=== PATIENT | male | born 1950 | race Caucasian/White ===

== ENCOUNTER 2020-10-11 10:44 | Inpatient (IN) | payer MEDICARE ==
[2020-10-11] MEDS ORDERED: ASPIRIN 81 MG PO STA (11:16)
[2020-10-11 11:31] LABS: Basophils # (A) 0.1 k/uL (0-0.2); Basophils % (A) 1 %; Eosinophils # (A) 0.1 k/uL (0-0.7); Eosinophils % (A) 1 %; HCT 48.4 % (39.0-53.0); HGB 16.2 gm/dL (13.0-17.5); Lymphocytes # (A) 1.9 k/uL (1.0-4.8); Lymphocytes % (A) 11 %; MCH 27.2 pg (25.0-35.0); MCHC 33.5 g/dL (31.0-37.0); Mean Platelet Volume 7.7; Monocytes # (A) 0.8 k/uL (0-1.0); Monocytes % (A) 5 %; Neutrophils # (A) 13.4 k/uL (1.3-7.7); Neutrophils % (A) 81 %; Platelet Count 289 k/uL (150-450); RBC 5.97 m/uL (4.30-5.90); RDW 13.2 % (11.5-15.5); WBC 16.5 k/uL (3.8-10.6)
--- NOTE | 2020-10-11 11:44 | XR ---
EXAMINATION TYPE: XR chest 2V DATE OF EXAM: 10/11/2020 COMPARISON: None INDICATION: Chest pain TECHNIQUE: Frontal and lateral views of the chest are obtained. FINDINGS: The heart size is normal. The pulmonary vasculature is normal. The lungs are clear. IMPRESSION: 1. No acute pulmonary process.
[2020-10-11 11:46] LABS: ALT 28 U/L (4-49); AST 68 U/L (17-59); African American GFR (CKD) >90 (>60 ml/min/1.73 sqM); Albumin 4.5 g/dL (3.5-5.0); Alkaline Phosphatase 84 U/L (38-126); Anion Gap 10 mmol/L; Blood Urea Nitrogen 15 mg/dL (9-20); Calcium 9.8 mg/dL (8.4-10.2); Carbon Dioxide 24 mmol/L (22-30); Chloride 104 mmol/L (98-107); Glucose 266 mg/dL (74-99); Magnesium 1.8 mg/dL (1.6-2.3); Non-African American GFR(CKD) 83 (>60 ml/min/1.73 sqM); Potassium 4.2 mmol/L (3.5-5.1); Sodium 138 mmol/L (137-145); Total Bilirubin 1.1 mg/dL (0.2-1.3); Total Protein 7.4 g/dL (6.3-8.2)
[2020-10-11 11:55] LABS: INR 0.9 (<1.2); Partial Thromboplastin Time 23.4 sec (22.0-30.0); Prothrombin Time 9.9 sec (9.0-12.0)
--- NOTE | 2020-10-11 12:03 | ED ---
Chest Pain HPI <Duane Schwartz - Last Filed: 10/11/20 12:54> - General Source: patient Mode of arrival: wheelchair Limitations: no limitations <Radha Cage - Last Filed: 10/11/20 13:44> - General Chief Complaint: Chest Pain Stated Complaint: chest pain Time Seen by Provider: 10/11/20 10:54 - History of Present Illness Initial Comments: Patient is 70-year-old male presenting to the emergency Department with complaints of chest pain. Patient states he's been having issues with upper bilateral chest pain over the summer that would get worse when he was mowing his lawn or wanted to go faster. Patient states over the past few weeks since it's been cold outside, he has noticed that if he is walking outside he feels like his upper chest gets tight as well as this throat. Patient states starting around 5 AM this morning he has been having chest pressure. He states right now, it is very minimal. He denies any shortness of breath. He states he does not follow with a primary care doctor. He did have a stress test when he was in his 30s secondary to having arrhythmias, it was normal. Patient has not had a recent stress test. He denies any recent fever or chills, no cough or congestion. Does admit to mild nausea, no vomiting. The only medicine he takes is for "eye pressure." He has no further complaints at this time. His vital signs upon arrival are normal. (Radha Cage) - Related Data Home Medications Medication Instructions Recorded Confirmed Latanoprost/Pf [Latanoprost 0.005% 1 drop BOTH EYES HS 10/11/20 10/11/20 Eye Drop] Allergies Allergy/AdvReac Type Severity Reaction Status Date / Time Sulfa (Sulfonamide Allergy Unknown Verified 10/11/20 13:14 Antibiotics) Review of Systems ROS Other: All systems not noted in ROS Statement are negative. <Duane Schwartz - Last Filed: 10/11/20 12:54> ROS Other: All systems not noted in ROS Statement are negative. <Radha Cage - Last Filed: 10/11/20 13:44> ROS Statement: Those systems with pertinent positive or pertinent negative responses have been documented in the HPI. EKG Findings - EKG Comments: EKG Findings:: Normal sinus rhythm, nonspecific ST and T wave abnormalities specifically and V2 V3 and V5. No priors to compare to. Ventricular rate 75, MI 136, QT 372. This was reviewed by Dr. Schwartz. <Radha Cage - Last Filed: 10/11/20 13:44> Past Medical History Additional Past Medical History / Comment(s): "eye pressure" Additional Past Surgical History / Comment(s): Detached retina x 2 Past Psychological History: No Psychological Hx Reported Smoking Status: Former smoker Past Alcohol Use History: None Reported Past Drug Use History: None Reported <Radha Cage - Last Filed: 10/11/20 13:44> General Exam Limitations: no limitations <Radha Cage - Last Filed: 10/11/20 13:44> - General Exam Comments Initial Comments: GENERAL: Patient is well-developed and well-nourished. Patient is nontoxic and in no acute distress. HEAD: Atraumatic, normocephalic. EYES: Pupils equal round and reactive to light, extraocular movements intact, sclera anicteric, conjunctiva are normal. Eyelids were unremarkable. ENT: TMs normal, nares patent, oropharynx clear without exudates. Moist mucous membranes. NECK: Normal range of motion, supple without lymphadenopathy or JVD. LUNGS: Unlabored respirations. Breath sounds clear to auscultation bilaterally and equal. No wheezes rales or rhonchi. HEART: Regular rate and rhythm without murmurs, rubs or gallops. ABDOMEN: Soft, nontender, normoactive bowel sounds. No guarding, no rebound. No masses appreciated. : Deferred MUSCULOSKELETAL: Normal extremities with adequate strength and normal range of motion, no pitting or edema. No clubbing or cyanosis. NEUROLOGICAL: Patient is alert and oriented x 3. Motor and sensory are also intact. Cranial nerves II through XII grossly intact. Symmetrical smile. Normal speech, normal gait. PSYCH: Normal mood, normal affect. SKIN: Warm, Dry, normal turgor, no rashes or lesions noted. (Radha Cage) Course <Duane Schwartz - Last Filed: 10/11/20 12:54> Vital Signs 10/11/20 10/11/20 10/11/20 10:45 12:19 12:29 Temperature 98.6 F Pulse Rate 100 73 Respiratory 18 18 16 Rate Blood Pressure 159/89 142/75 O2 Sat by Pulse 97 93 L Oximetry 10/11/20 13:00 Temperature Pulse Rate 84 Respiratory 18 Rate Blood Pressure 161/77 O2 Sat by Pulse 98 Oximetry - Reevaluation(s) Reevaluation #1: 10/11/20 12:54 Patient reevaluated and reexamined by myself, Dr. Schwartz. Patient resting comfortably in bed, symptom-free at this time. Patient has been having symptoms of past few weeks, more so at 3 AM last night. Patient has had some exertional symptoms since the summertime. EKG shows some borderline changes. Elevated troponin. X-ray reviewed. Patient updated on results and plan. Case was discussed in detail with Dr. Sargent, with cardiology, who will consult. Heparin was started. Dr. Martell has been paged for admission for hospital call. (Duane Schwartz) Chest Pain MDM <Radha Cage - Last Filed: 10/11/20 13:44> - MDM Patient is a 70-year-old male presenting with intermittent upper chest pains for the past 3 weeks however new chest pressure that started today around 5 AM. Patient's pain is very minimal at this time. His vital signs are stable, his EKG does show some mild ST and T-wave abnormalities, no priors to compare to, no ST elevation. He does not follow with a primary care doctor, he's had no recent stress testing done. Patient's lab work shows a white count elevation of 16.5, troponin came back at 12.5. His x-ray is normal. Patient was started on low- dose heparin, he was already given an aspirin. Patient will be admitted for NSTEMI, cardiac consultation. Patient accepted by Dr. Hooker. Case discussed in detail with Dr. Schwartz. (Radha Cage) Disposition <Duane Schwartz - Last Filed: 10/11/20 12:54> Is patient prescribed a controlled substance at d/c from ED?: No Decision Date: 10/11/20 Decision Time: 12:53 <Radha Cage - Last Filed: 10/11/20 13:44> Clinical Impression: Acute non-ST elevation myocardial infarction (NSTEMI) Disposition: ADMITTED IP TO THIS HOSP Condition: Stable Referrals: None,Stated [Primary Care Provider] - 1-2 days
[2020-10-11] MEDS ORDERED: HEPARIN SODIUM,PORCINE 5,000 UNIT/ML 1 ML VIAL IV PRN (12:39)
[2020-10-11] MEDS ORDERED: HEPARIN SODIUM,PORCINE 5,000 UNIT/ML 1 ML VIAL IV ONE (12:39)
[2020-10-11] MEDS ORDERED: HEPARIN SOD,PORK IN 0.45% NACL 25,000 UNIT in 0.45% NACL 1 250ML.BAG IV SCH (12:45)
[2020-10-11] MEDS ORDERED: NITROGLYCERIN SL TABS 0.4 MG TAB SUBLINGUAL PRN ×2 (12:50→16:57)
[2020-10-11] MEDS ORDERED: VERAPAMIL 2.5 MG/ML 2 ML AMP ONE (15:15)
[2020-10-11] MEDS ORDERED: HEPARIN SODIUM 1,000 UN/ML (10ML VL) ONE (15:15)
[2020-10-11] MEDS ORDERED: fentaNYL (PF) 50 MCG/ML 2 ML AMP ONE (15:15)
[2020-10-11] MEDS ORDERED: LIDOCAINE 1% INJ 10MG/ML (20 ML MDV) ONE (15:15)
[2020-10-11] MEDS ORDERED: IV FLUID CONTINUATION 1,000 ML IV ONE (15:19)
[2020-10-11] MEDS ORDERED: fentaNYL (PF) 50 MCG/ML 2 ML AMP IV ONE (15:22)
[2020-10-11] MEDS ORDERED: MIDAZOLAM 2 MG/2 ML VIAL IV ONE (15:22)
--- NOTE | 2020-10-11 15:23 | P.CRDCN ---
History of Present Illness Consult date: 10/11/20 History of present illness: This is 70-year-old gentleman without any significant past medical history who came to the emergency room with complaints of chest tightness that woke him up around 3:00 this morning. He has been having exertional tightness in the throat area and also shoulder pains for some time. However, he woke up last night with this pain around 3:00 which was off and on. Finally patient came to the emergency room. He was also having exertional shortness of breath before. EKG showed mild ST depression in anterior leads and minimal ST elevation in inferior leads. His troponin is up to 12. By the time patient came to the emergency room. His pain is mostly resolved. However because of abnormal troponins and intermittent pain symptoms, patient is advised to have a cardiac catheterization for definitive diagnosis and further intervention as needed. Review of Systems As per the chart Past Medical History Additional Past Medical History / Comment(s): "eye pressure", cataracts History of Any Multi-Drug Resistant Organisms: None Reported Additional Past Surgical History / Comment(s): Detached retina x 2-lasered Past Anesthesia/Blood Transfusion Reactions: No Reported Reaction Past Psychological History: No Psychological Hx Reported Smoking Status: Former smoker Past Alcohol Use History: None Reported Past Drug Use History: None Reported - Past Family History Father Family Medical History: Myocardial Infarction (MA) Medications and Allergies Home Medications Medication Instructions Recorded Confirmed Type Latanoprost/Pf [Latanoprost 0.005% 1 drop BOTH EYES HS 10/11/20 10/11/20 History Eye Drop] Allergies Allergy/AdvReac Type Severity Reaction Status Date / Time Sulfa (Sulfonamide Allergy Unknown Verified 10/11/20 13:14 Antibiotics) Physical Exam Vitals: Vital Signs Temp Pulse Pulse Resp BP BP Pulse Ox 10/11/20 13:55 98.1 F 99 18 182/86 100 10/11/20 13:00 84 18 161/77 98 10/11/20 12:29 16 10/11/20 12:19 73 18 142/75 93 L 10/11/20 10:45 98.6 F 100 18 159/89 97 Intake and Output 10/11/20 10/11/20 10/11/20 06:59 14:59 22:59 Intake Total 9.167 Balance 9.167 Intake: IV 0 Heparin Sod,Pork in 0.45% 0 NaCl 25,000 unit In 0.45 % NaCl 1 250ml.bag @ 11. 023 UNITS/KG/HR 10 mls/hr IV .Q24H [facility] Rx#: [id number] Intake, IV Titration 9.167 Amount Heparin Sod,Pork in 0.45% 9.167 NaCl 25,000 unit In 0.45 % NaCl 1 250ml.bag @ 11. 023 UNITS/KG/HR 10 mls/hr IV .Q24H [facility] Rx#: [id number] Other: Weight 90.718 kg GENERAL EXAM: Patient is alert and oriented and doesn't appear to be in any acute distress HEENT: Normocephalic. Normal reaction of pupils, equal size, normal range of extraocular motion. No erythema or exudates in the throat. NECK: No masses, no nuchal rigidity. CHEST: No chest wall deformity. LUNGS: Equal air entry with no crackles or wheeze. HEART: S1 and S2 normal with no audible mumurs or gallops. Regular rhythm, femorals equal on both sides.. ABDOMEN: No hepatosplenomegaly, normal bowel sounds, no guarding or rigidity. SKIN: No rashes CENTRAL NERVOUS SYSTEM: No focal deficits. EXTREMITIES: No cyanosis, clubbing or edema. Results 10/11/20 11:18 10/11/20 11:18 Cardiac Enzymes 10/11/20 10/11/20 10/11/20 Range/Units 11:18 11:18 14:00 AST 68 H (17-59) U/L Troponin I 12.500 H* 9.600 H* (0.000-0.034) ng/mL Coagulation 10/11/20 Range/Units 11:18 PT 9.9 (9.0-12.0) sec APTT 23.4 (22.0-30.0) sec CBC 10/11/20 Range/Units 11:18 WBC 16.5 H (3.8-10.6) k/uL RBC 5.97 H (4.30-5.90) m/uL Hgb 16.2 (13.0-17.5) gm/dL Hct 48.4 (39.0-53.0) % Plt Count 289 (150-450) k/uL Comprehensive Metabolic Panel 10/11/20 Range/Units 11:18 Sodium 138 (137-145) mmol/L Potassium 4.2 (3.5-5.1) mmol/L Chloride 104 (98-107) mmol/L Carbon Dioxide 24 (22-30) mmol/L BUN 15 (9-20) mg/dL Creatinine 0.92 (0.66-1.25) mg/dL Glucose 266 H (74-99) mg/dL Calcium 9.8 (8.4-10.2) mg/dL AST 68 H (17-59) U/L ALT 28 (4-49) U/L Alkaline Phosphatase 84 (38-126) U/L Total Protein 7.4 (6.3-8.2) g/dL Albumin 4.5 (3.5-5.0) g/dL Current Medications Generic Name Dose Route Start Last Admin Trade Name Freq PRN Reason Stop Dose Admin Aspirin 325 mg 10/12/20 09:00 Aspirin 325 Mg Tab PO DAILY [facility] Famotidine 20 mg 10/11/20 21:00 Famotidine 20 Mg/2 Ml Vial IV Q12HR [facility] Heparin Sodium (Porcine) 0 unit 10/11/20 12:39 Heparin Sodium,Porcine 5,000 Unit/Ml 1 Ml Vial IV PER PROTOCOL PRN Low PTT Protocol Heparin Sodium/Sodium Chloride 250 mls @ 10 mls/hr 10/11/20 12:45 10/11/20 13:55 25,000 unit/ Sodium Chloride IV 0 units/kg/hr .Q24H [facility] 0 mls/hr Titration Protocol 11.023 UNITS/KG/HR Metoprolol Tartrate 25 mg 10/11/20 15:00 Metoprolol Tartrate 25 Mg Tab PO BID [facility] Nitroglycerin 0.4 mg 10/11/20 12:50 Nitroglycerin Sl Tabs 0.4 Mg Tab SUBLINGUAL Q5M PRN Chest Pain Intake and Output 10/11/20 10/11/20 10/11/20 06:59 14:59 22:59 Intake Total 9.167 Balance 9.167 Intake: IV 0 Heparin Sod,Pork in 0.45% 0 NaCl 25,000 unit In 0.45 % NaCl 1 250ml.bag @ 11. 023 UNITS/KG/HR 10 mls/hr IV .Q24H [facility] Rx#: [id number] Intake, IV Titration 9.167 Amount Heparin Sod,Pork in 0.45% 9.167 NaCl 25,000 unit In 0.45 % NaCl 1 250ml.bag @ 11. 023 UNITS/KG/HR 10 mls/hr IV .Q24H [facility] Rx#: [id number] Other: Weight 90.718 kg Patient Weight 10/12/20 06:59 Weight 90.718 kg 10/11/20 11:18 10/11/20 11:18 EKG Interpretations (text) Sinus rhythm with mild ST depression in anterior leads and minimal ST elevation in inferior leads Assessment and Plan (1) Acute non-ST elevation myocardial infarction (NSTEMI) Current Visit: Yes Status: Acute Code(s): I21.4 - NON-ST ELEVATION (NSTEMI) MYOCARDIAL INFARCTION SNOMED Code(s): 342173650 Plan: Will proceed with cardiac catheterization for definite diagnosis. We will treat him with heparin, nitrates, beta blockers and aspirin
[2020-10-11] MEDS ORDERED: LIDOCAINE 1% INJ 10MG/ML (20 ML MDV) SQ ONE (15:26)
[2020-10-11] MEDS ORDERED: VERAPAMIL SYRINGE (5 MG/10 ML) INTRAARTER ONE (15:28)
[2020-10-11] MEDS ORDERED: METOPROLOL TARTRATE 5 MG/5 ML VIAL IVP ONE ×2 (15:39→15:43)
[2020-10-11] MEDS ORDERED: PRASUGREL 10 MG TAB ONE (15:49)
[2020-10-11] MEDS ORDERED: PRASUGREL 10 MG TAB PO ONE (15:52)
[2020-10-11] MEDS: NITROGLYCERIN 1000MCG/10ML SYRINGE INTRACORON ONE ×3 (15:54→16:25)
--- NOTE | 2020-10-11 15:56 | P.CARDCATH ---
Date of Procedure: 10/11/20 Preoperative Diagnosis: Non-STEMI Postoperative Diagnosis: Critical lesion involving the RCA and mild to moderate disease involving the LAD Procedure(s) Performed: Left heart catheterization without left ventriculography Description of Procedure: HISTORY: 70-year-old gentleman with no past medical history has been experiencing exertional shoulder pain and, throat discomfort for some time. He started having chest pain around 3 AM this morning which has been intermittent. Patient finally came to the emergency room. His EKG showed mild ST depression in anterior leads and minimal ST elevation in inferior leads. His troponin went up to 12. In view of that patient is advised to have a cardiac catheterization with intervention of primary intervention CONSENT:I have discussed the risks, benefits and alternative therapies for the above-mentioned procedure and for both sedation/analgesia as well as necessary blood product administration, if indicated, as they pertain to this patient. The patient has indicated understanding and acceptance of the risks and procedures discussed. PROCEDURE: Patient was brought to the lab in a fasting state. Patient was given some IV sedation. The right wrist is infiltrated with lidocaine and right radial artery was entered using Seldinger technique. A 6-Latvian catheter was left in place and selective coronary arteriography was performed. Patient tolerated the procedure well. Patient went on to have stent placement of the RCA by Dr. Garcia.. No immediate complications were noted . Conscious Sedation: Versed 1mg Fentanyl 50 g Duration 18minutes HEMODYNAMICS: Aortic pressure is about 130/70. Left ventricle end-diastolic pressure is about 12 to 15. No gradient across the aortic valve SELECTIVE CORONARY ARTERIOGRAPHY: LEFT MAIN: Normal length and free of any occlusive disease THE LEFT ANTERIOR DESCENDING CORONARY ARTERY: . Good caliber vessel with a diffuse plaque with about 30-40% lesion in the midportion and also another 40-50% lesion in the distal portion. THE LEFT CIRCUMFLEX AND IS CORONARY ARTERY: Non- dominant vessel free of any significant occlusive disease THE RIGHT CORONARY ARTERY: Fairly caliber vessel with a long lesion involving the proximal to midportion with about 95% stenosis. Patient also has underlying lesion in mid RCA and also ostium of the PLV branch with about 80-90% stenosis LEFT VENTRICULOGRAPHY: . Not performed FINAL IMPRESSION: Critical lesion involving the RCA. Noncritical disease involving the LAD PLAN: Stent placement of the RCA and multiple locations. Being performed by Dr. Garcia] PROGNOSIS: []
[2020-10-11] MEDS ORDERED: IOPAMIDOL-370 125ML BTL INJ ONE (16:01)
[2020-10-11] MEDS ORDERED: NITROGLYCERIN 1000MCG/10ML SYRINGE INTRACORON ONE (16:32)
[2020-10-11] MEDS ORDERED: IOPAMIDOL-370 100ML BTL INJ ONE ×2 (16:36→16:45)
[2020-10-11] MEDS ORDERED: MAG HYDROX/AL HYDROX/SIMETH 30 ML CUP PO PRN (16:57)
[2020-10-11] MEDS ORDERED: ATROPINE SULFATE 0.1 MG/ML 10ML SYRINGE IV PRN (16:57)
[2020-10-11] MEDS ORDERED: ZOLPIDEM 5 MG TAB PO PRN (16:57)
[2020-10-11] MEDS ORDERED: RX INFO: IV CONTRAST WAS GIVEN 1 EACH MISC MISCELLANE PRN (16:57)
--- NOTE | 2020-10-11 16:57 | P.PRCINT ---
Percutaneous Coronary Int. - Percutaneous Coronary Intervention Percutaneous Coronary Intervention: Procedures performed: Right coronary angiography, PCI of proximal RCA all the way into PLV branch with overlapping 2.5 x 33 mm Xience and 3.0 x 33 mm Xience TORSTEN, post dilated with 3.5 and 4.0 NC balloons Procedure performed by: Dr Quentin Garcia DO Indications: Non-STEMI HPI: Patient is a pleasant 70-year-old male without significant medical history who presented with chest pain and was ruled in for non-STEMI. A diagnostic heart catheterization was performed by my partner to further assess, please see separate dictation for full details. I was asked to perform intervention to the RCA. Conscious sedation: Conscious sedation was performed under the direct supervion of myself using Versed and Fentanyl for a total of 56 mins. Description of procedure: The risks, benefits and alternatives of heart ca theterization and PCI were explained in detail to the patient before the procedure and informed consent was obtained. Patient had diagnostic coronary angiography performed by my partner and was left on the catheterization table. Patient had been prepped and draped in the usual fashion and a 6Fr sheath had been placed in the right radial artery by my partner. A decision was made to intervene on the RCA. Heparin was given for an ACT greater than 250. A 6Fr AL 0.75 guide was used to engage the RCA. A 0.014 BMW wire was placed in the distal PDA. There was suitable lesion of the proximal P DA secondary to tortuosity. A second 0.014 BMW wire was advanced into the PLV. Next predilation was performed using a 2.0 x 12 mm balloon. A 2.5 x 33 mm Xience TORSTEN stent was then placed from the mid to distal RCA into the PLV, "jailing" the PDA however there was no significant ostial PDA disease. Next an overlapping 3.0 x 33 mm Xience TORSTEN was placed more proximally. Both stents were postdilated with a 3.5 and then more proximally with a 4.0 noncompliant balloon. Angiograms were obtained in multiple views. Pre intervention there was 95 % proximal to mid RCA with a long diffuse disease of the entire proximal to distal RCA as well as a 95% proximal PLV stenosis and FANNY 2 flow and post intervention there was less than 10% % residual stenosis at the proximal portion of the stent and FANNY 3 flow and no evidence of any dissection. There was FANNY 3 flow of the PDA without any significant stenosis from the "jailing". The wire was then removed and final angiograms were obtained. The radial sheath was pulled and a TR band was placed with hemostasis achieved. The patient tolerated the procedure well. The patient was transferred to the post catheterization holding area in stable condition. Conclusions: 1. Successful PCI of proximal to distal RCA into the proximal PLV with overlapping 2.5 x 33 mm Xience TORSTEN and 3.0 x 33 mm Xience TORSTEN 2. Non-STEMI Plan: 1. Aggressive risk factor modifications per most recent ACC/AHA guidelines. 2. Continue dual antiplatelets for 12 months.
[2020-10-11] MEDS: SODIUM CHLORIDE 0.9% 1,000 ML IV SCH (17:11)
[2020-10-11] MEDS: METOPROLOL TARTRATE 25 MG TAB PO SCH ×2 (17:22→22:40)
--- NOTE | 2020-10-11 18:09 | P.EN ---
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
[2020-10-11] MEDS: FAMOTIDINE 20 MG/2 ML VIAL IV SCH (20:35)
[2020-10-11 22:32] LABS: Hemoglobin A1C 9.4 % (4.0-6.0)
[2020-10-12] MEDS: SODIUM CHLORIDE 0.9% 1,000 ML IV SCH (04:09)
[2020-10-12 07:09] LABS: Basophils % (A) 0 %; Eosinophils # (A) 0.1 k/uL (0-0.7); Eosinophils % (A) 1 %; HGB 13.5 gm/dL (13.0-17.5); Lymphocytes % (A) 19 %; MCH 26.8 pg (25.0-35.0); MCHC 32.8 g/dL (31.0-37.0); MCV 81.8 fL (80.0-100.0); Mean Platelet Volume 7.3; Monocytes # (A) 0.7 k/uL (0-1.0); Monocytes % (A) 6 %; Neutrophils # (A) 7.7 k/uL (1.3-7.7); Neutrophils % (A) 72 %; Platelet Count 214 k/uL (150-450); RBC 5.02 m/uL (4.30-5.90); RDW 13.2 % (11.5-15.5); WBC 10.8 k/uL (3.8-10.6)
--- NOTE | 2020-10-12 07:12 | P.PN ---
Subjective Progress Note Date: 10/12/20 Principal diagnosis: Non-STEMI This patient was admitted yesterday with non-STEMI. Had cardiac catheterization and stent placement of the RCA. There is a loss of acute marginal branch, but otherwise had good results. Patient has remained stable overnight. Denies any chest pain, shortness of breath, dizziness or syncope. Puncture site seemed to be soft without any hematoma. Patient is tolerating medications. No arrhythmias noted. Patient is going to have an echo [place] today. We'll increase activity and if stable, patient could be discharged home tomorrow. Objective - Vital Signs Vital signs: Vital Signs Temp 97.7 F 10/11/20 20:00 Pulse 74 10/12/20 03:42 Resp 16 10/12/20 03:42 BP 133/84 10/12/20 03:42 Pulse Ox 98 10/12/20 03:42 Intake & Output 10/11/20 10/12/20 10/12/20 18:59 06:59 18:59 Intake Total 679.167 900 Output Total 400 Balance 679.167 500 Weight 90.718 kg 85 kg Intake: IV 550 Heparin Sod,Pork in 0.45% 0 NaCl 25,000 unit In 0.45 % NaCl 1 250ml.bag @ 11. 023 UNITS/KG/HR 10 mls/hr IV .Q24H [facility] Rx#: [id number] Intake, IV Titration 9.167 900 Amount Heparin Sod,Pork in 0.45% 9.167 NaCl 25,000 unit In 0.45 % NaCl 1 250ml.bag @ 11. 023 UNITS/KG/HR 10 mls/hr IV .Q24H [facility] Rx#: [id number] Sodium Chloride 0.9% 1, 900 000 ml @ 100 mls/hr IV . Q10H [facility] Rx#:[id number] Oral 120 Output: Urine 400 - Exam GENERAL EXAM: Patient is alert and oriented and doesn't appear to be in any acute distress HEENT: Normocephalic. Normal reaction of pupils, equal size, normal range of extraocular motion. No erythema or exudates in the throat. NECK: No masses, no nuchal rigidity. CHEST: No chest wall deformity. LUNGS: Equal air entry with no crackles or wheeze. HEART: S1 and S2 normal with no audible mumurs or gallops. Regular rhythm, femorals equal on both sides.. ABDOMEN: No hepatosplenomegaly, normal bowel sounds, no guarding or rigidity. SKIN: No rashes CENTRAL NERVOUS SYSTEM: No focal deficits. EXTREMITIES: No cyanosis, clubbing or edema. Puncture site: Seemed to be soft without any hematoma - Labs CBC & Chem 7: 10/12/20 06:30 10/11/20 11:18 Labs: Abnormal Lab Results - Last 24 Hours (Table) 10/11/20 10/11/20 10/11/20 Range/Units 11:18 11:18 11:18 WBC 16.5 H (3.8-10.6) k/uL RBC 5.97 H (4.30-5.90) m/uL Neutrophils # 13.4 H (1.3-7.7) k/uL Glucose 266 H (74-99) mg/dL Hemoglobin A1c (4.0-6.0) % AST 68 H (17-59) U/L Troponin I 12.500 H* (0.000-0.034) ng/mL 10/11/20 10/11/20 10/11/20 Range/Units 11:18 14:00 17:04 WBC (3.8-10.6) k/uL RBC (4.30-5.90) m/uL Neutrophils # (1.3-7.7) k/uL Glucose (74-99) mg/dL Hemoglobin A1c 9.4 H (4.0-6.0) % AST (17-59) U/L Troponin I 9.600 H* 25.000 H* (0.000-0.034) ng/mL 10/12/20 Range/Units 06:30 WBC 10.8 H (3.8-10.6) k/uL RBC (4.30-5.90) m/uL Neutrophils # (1.3-7.7) k/uL Glucose (74-99) mg/dL Hemoglobin A1c (4.0-6.0) % AST (17-59) U/L Troponin I (0.000-0.034) ng/mL Assessment and Plan (1) Acute non-ST elevation myocardial infarction (NSTEMI) Current Visit: Yes Status: Acute Code(s): I21.4 - NON-ST ELEVATION (NSTEMI) MYOCARDIAL INFARCTION SNOMED Code(s): 237859505 Plan: Patient is critically stable. No symptoms of chest pain, shortness of breath. No arrhythmias noted. Increase activity. Echocardiogram today. Possible discharge in a.m.
[2020-10-12 07:29] LABS: African American GFR (CKD) >90 (>60 ml/min/1.73 sqM); Cholesterol 163 mg/dL (<200); HDL Cholesterol 27 mg/dL (40-60); LDL Cholesterol,Calculated 110 mg/dL (0-99); Non-African American GFR(CKD) 78 (>60 ml/min/1.73 sqM); Triglycerides 131 mg/dL (<150)
[2020-10-12] MEDS: ASPIRIN 81 MG PO SCH (08:23)
[2020-10-12] MEDS: FAMOTIDINE 20 MG/2 ML VIAL IV SCH ×2 (08:23→22:14)
[2020-10-12] MEDS: METOPROLOL TARTRATE 25 MG TAB PO SCH ×2 (08:23→22:14)
[2020-10-12] MEDS: ATORVASTATIN 80 MG TAB PO SCH (08:23)
[2020-10-12] MEDS ORDERED: ASPIRIN 325 MG TAB PO SCH (09:00)
--- NOTE | 2020-10-12 10:19 | ECHOF ---
Referral Reason:Rule out heart disease MEASUREMENTS -------- HEIGHT: 182.9 cm WEIGHT: 84.8 kg BP: 133/84 RVIDd: 2.6 cm (< 3.3) IVSd: 1.2 cm (0.6 - 1.1) LVIDd: 4.6 cm (3.9 - 5.3) LVPWd: 1.3 cm (0.6 - 1.1) IVSs: 1.6 cm LVIDs: 3.7 cm LVPWs: 1.7 cm LA Diam: 3.5 cm (2.7 - 3.8) LAESV Index (A-L): 29.30 ml/m Ao Diam: 3.7 cm (2.0 - 3.7) AV Cusp: 1.9 cm (1.5 - 2.6) MV EXCURSION: 14.317 mm (> 18.000) MV EF SLOPE: 175 mm/s (70 - 150) EPSS: 0.9 cm MV E Deangelo: 1.08 m/s MV DecT: 211 ms MV A Deangelo: 0.87 m/s MV E/A Ratio: 1.24 RAP: 15.00 mmHg RVSP: 48.19 mmHg FINDINGS -------- Sinus rhythm. This was a technically adequate study. The left ventricular size is normal. There is mild concentric left ventricular hypertrophy. Overa ll left ventricular systolic function is low-normal with, an EF between 50 - 55 %. The diastolic fi lling pattern indicates impaired relaxation 15.28. The right ventricle is normal in size. LA is midly dilated 29-33ml/m2. The right atrial size is normal. Interatrial and interventricular septum intact. Aortic valve is trileaflet and is mildly thickened. The mitral valve leaflets are mildly thickened. Mild mitral regurgitation is present. Mild tricuspid regurgitation present. There is mild to moderate pulmonary hypertension. The right ventricular systolic pressure, as measured by Doppler, is 48.19mmHg. Trace/mild (physiologic) pulmonic regurgitation. The aortic root size is normal. The inferior vena cava is dilated with poor inspiratory collapse which is consistent with estimated r ight atrial pressure of 15 mmHg. There is no pericardial effusion. CONCLUSIONS -------- 1. There is mild concentric left ventricular hypertrophy. 2. Overall left ventricular systolic function is low-normal with, an EF between 50 - 55 %. 3. LA is midly dilated 29-33ml/m2. 4. Aortic valve is trileaflet and is mildly thickened. 5. Mild mitral regurgitation is present. 6. Mild tricuspid regurgitation present. 7. There is mild to moderate pulmonary hypertension. 8. Trace/mild (physiologic) pulmonic regurgitation. 9. The inferior vena cava is dilated with poor inspiratory collapse which is consistent with estimate d right atrial pressure of 15 mmHg. PINMAKER: Lisa Andrade RDCS
--- NOTE | 2020-10-12 12:09 | P.HPIM ---
History of Present Illness Patient is a pleasant 70-year-old male in with complaints of chest pain with her chest pain was typical and patient is found to have non-ST elevation microinfarction patient underwent cardiac catheterization and stenting to RCA. Patient had a troponin of around 25. Patient's hemoglobin A1c is elevated to 9.4 patient is being started on metformin at this time patient is chest pain- free at this time. Echocardiogram showed normal ejection fraction. Patient wanted tonight for any ventricular arrhythmias and the possibility of discharge tomorrow. Review of Systems REVIEW OF SYSTEMS: CONSTITUTIONAL: No fever, no malaise, no fatigue. HEENT: No recent visual problems or hearing problems. Denied any sore throat. CARDIOVASCULAR: No chest pain, orthopnea, PND, no palpitations, no syncope. PULMONARY: No shortness of breath, no cough, no hemoptysis. GASTROINTESTINAL: No diarrhea, no nausea, no vomiting, no abdominal pain. NEUROLOGICAL: No headaches, no weakness, no numbness. HEMATOLOGICAL: Denies any bleeding or petechiae. GENITOURINARY: Denies any burning micturition, frequency, or urgency. MUSCULOSKELETAL/RHEUMATOLOGICAL: Denies any joint pain, swelling, or any muscle pain. ENDOCRINE: Denies any polyuria or polydipsia. The rest of the 14-point review of systems is negative. Past Medical History Additional Past Medical History / Comment(s): "eye pressure", cataracts History of Any Multi-Drug Resistant Organisms: None Reported Additional Past Surgical History / Comment(s): Detached retina x 2-lasered Past Anesthesia/Blood Transfusion Reactions: No Reported Reaction Past Psychological History: No Psychological Hx Reported Smoking Status: Former smoker Past Alcohol Use History: None Reported Past Drug Use History: None Reported - Past Family History Father Family Medical History: Myocardial Infarction ([place]) Medications and Allergies Home Medications Medication Instructions Recorded Confirmed Type Latanoprost/Pf [Latanoprost 0.005% 1 drop BOTH EYES HS 10/11/20 10/11/20 History Eye Drop] Allergies Allergy/AdvReac Type Severity Reaction Status Date / Time Sulfa (Sulfonamide Allergy Unknown Verified 10/11/20 13:14 Antibiotics) Physical Exam Vitals: Vital Signs Temp Pulse Pulse Pulse Resp BP BP 10/12/20 11:27 97.6 F 60 18 106/64 10/12/20 08:20 97.5 F L 69 18 125/70 10/12/20 08:00 69 18 10/12/20 03:42 74 16 133/84 10/11/20 23:54 66 16 123/73 10/11/20 20:00 97.7 F 78 16 118/73 10/11/20 18:42 65 16 113/60 10/11/20 18:12 63 18 109/64 10/11/20 17:42 75 16 10/11/20 17:27 77 18 130/77 10/11/20 17:12 69 18 126/70 10/11/20 16:57 69 16 141/72 10/11/20 13:55 98.1 F 99 18 182/86 10/11/20 13:00 84 18 161/77 10/11/20 12:29 16 10/11/20 12:19 73 18 142/75 Pulse Ox 10/12/20 11:27 99 10/12/20 08:20 96 10/12/20 08:00 10/12/20 03:42 98 10/11/20 23:54 96 10/11/20 20:00 97 10/11/20 18:42 97 10/11/20 18:12 97 10/11/20 17:42 10/11/20 17:27 10/11/20 17:12 96 10/11/20 16:57 97 10/11/20 13:55 100 10/11/20 13:00 98 10/11/20 12:29 10/11/20 12:19 93 L Intake and Output 10/11/20 10/12/20 10/12/20 22:59 06:59 14:59 Intake Total 670 900 Output Total 200 200 Balance 470 700 Intake: IV 550 Intake, IV Titration 900 Amount Sodium Chloride 0.9% 1, 900 000 ml @ 100 mls/hr IV . Q10H [facility] Rx#:[id number] Oral 120 Output: Urine 200 200 Other: Weight 85 kg PHYSICAL EXAMINATION: GENERAL: The patient is alert and oriented x3, not in any acute distress. Well developed, well nourished. HEENT: Pupils are round and equally reacting to light. EOMI. No scleral icterus. No conjunctival pallor. Normocephalic, atraumatic. No pharyngeal erythema. No thyromegaly. CARDIOVASCULAR: S1 and S2 present. No murmurs, rubs, or gallops. PULMONARY: Chest is clear to auscultation, no wheezing or crackles. ABDOMEN: Soft, nontender, nondistended, normoactive bowel sounds. No palpable organomegaly. MUSCULOSKELETAL: No joint swelling or deformity. EXTREMITIES: No cyanosis, clubbing, or pedal edema. NEUROLOGICAL: Gross neurological examination did not reveal any focal deficits. SKIN: No rashes. Results CBC & Chem 7: 10/12/20 06:30 10/12/20 06:30 Labs: Abnormal Lab Results - Last 24 Hours (Table) 10/11/20 10/11/20 10/11/20 Range/Units 11:18 11:18 14:00 WBC (3.8-10.6) k/uL Hemoglobin A1c 9.4 H (4.0-6.0) % Troponin I 12.500 H* 9.600 H* (0.000-0.034) ng/mL LDL Cholesterol, Calc (0-99) mg/dL HDL Cholesterol (40-60) mg/dL 10/11/20 10/12/20 10/12/20 Range/Units 17:04 06:30 06:30 WBC 10.8 H (3.8-10.6) k/uL Hemoglobin A1c (4.0-6.0) % Troponin I 25.000 H* (0.000-0.034) ng/mL LDL Cholesterol, Calc 110 H (0-99) mg/dL HDL Cholesterol 27 L (40-60) mg/dL Thrombosis Risk Factor Assmnt - Choose All That Apply Each Risk Factor Represents 2 Points: Age 61-74 years Thrombosis Risk Factor Assessment Total Risk Factor Score: 2 Thrombosis Risk Factor Assessment Level: Low Risk Assessment and Plan Plan: -Acute non-ST elevation myocardial infarction: Patient had stenting to RCA. She is presently on dual antiplatelet therapy, statin and the lisinopril. 2 new-onset diabetes mellitus patient will be started on metformin but patient will need to increase the dose of metformin as well as probably secondary medi cation. -Hyperlipidemia -Hypertension -Nicotine use: Counseling was provided
[2020-10-12 13:59] VITALS: BMI 25.4
[2020-10-12] MEDS ORDERED: PRASUGREL 10 MG TAB PO SCH (17:00)
[2020-10-13 07:45] LABS: Basophils # (A) 0.1 k/uL (0-0.2); Basophils % (A) 1 %; Eosinophils # (A) 0.2 k/uL (0-0.7); Eosinophils % (A) 2 %; HCT 43.2 % (39.0-53.0); HGB 14.6 gm/dL (13.0-17.5); Lymphocytes # (A) 2.2 k/uL (1.0-4.8); Lymphocytes % (A) 22 %; MCHC 33.9 g/dL (31.0-37.0); MCV 82.6 fL (80.0-100.0); Mean Platelet Volume 7.1; Monocytes # (A) 0.6 k/uL (0-1.0); Monocytes % (A) 6 %; Neutrophils # (A) 6.9 k/uL (1.3-7.7); Neutrophils % (A) 68 %; Platelet Count 249 k/uL (150-450); RBC 5.23 m/uL (4.30-5.90); RDW 13.1 % (11.5-15.5); WBC 10.2 k/uL (3.8-10.6)
[2020-10-13 08:04] LABS: Calcium 9.5 mg/dL (8.4-10.2)
[2020-10-13 08:07] VITALS: BP 111/56; PULSE 69; RESP 18; TEMP 97.7
[2020-10-13] MEDS: METOPROLOL TARTRATE 25 MG TAB PO SCH (08:08)
[2020-10-13] MEDS: ATORVASTATIN 80 MG TAB PO SCH (08:08)
[2020-10-13] MEDS: FAMOTIDINE 20 MG/2 ML VIAL IV SCH (08:08)
[2020-10-13] MEDS: ASPIRIN 81 MG PO SCH (08:08)
--- NOTE | 2020-10-13 10:41 | P.PN ---
Subjective This is a pleasant 70-year-old male who underwent PCI of the RCA with loss of acute marginal branch. He is seen and examined resting comfortably sitting up in bed in no acute distress. He has no symptoms of chest pain, shortness of breath, dizziness or palpitations. He has been up and ambulating without difficulty. Blood pressure 111/56 heart rate 69 afebrile maintaining oxygen saturation on room air. Laboratory data reviewed, CBC unremarkable, sodium 137, potassium 4.0 creatinine 1.1. Echocardiogram obtained reveals preserved LV systolic function with ejection fraction 50-55%, mild tricuspid regurgitation and mild mitral regurgitation. GENERAL: Well-appearing, well-nourished and in no acute distress. NECK: Supple without JVD or thyromegaly. LUNGS: Breath sounds clear to auscultation bilaterally. Respiration equal and u nlabored. No wheezes, rales or rhonchi. HEART: Regular rate and rhythm without murmurs, rubs or gallops. S1 and S2 heard. EXTREMITIES: Normal range of motion, no edema. No clubbing or cyanosis. Belinda pheral pulses intact. ASSESSMENT Non-ST elevated myocardial infarction Hypertension Dyslipidemia PLAN Clinically stable for discharge from a cardiac perspective on current medical regimen. Importance of dual antiplatelet therapy discussed in great detail with the patient. Prescriptions have been sent to the pharmacy. Follow-up in the office with Dr. Sargent in one week. Nurse Practitioner note has been reviewed, I agree with a documented findings and plan of care. Patient was seen and examined. Objective - Vital Signs Vital signs: Vital Signs Temp 97.7 F 10/13/20 08:06 Pulse 69 10/13/20 08:06 Resp 18 10/13/20 08:06 BP 111/56 10/13/20 08:06 Pulse Ox 98 10/13/20 08:06 Intake & Output 10/12/20 10/13/20 10/13/20 18:59 06:59 18:59 Intake Total 600 180 Balance 600 180 Weight 85 kg 85.9 kg Intake: Oral 600 180 Other: Voiding Method Toilet Toilet # Voids 2 2 - Labs CBC & Chem 7: 10/13/20 07:18 10/13/20 07:18 Labs: Abnormal Lab Results - Last 24 Hours (Table) 10/13/20 Range/Units 07:18 Glucose 162 H (74-99) mg/dL
--- NOTE | 2020-10-13 11:01 | P.DS ---
Providers Date of admission: 10/11/20 12:55 Attending physician: Anh Martell Consults: 10/11/20 12:50 Consult Physician Urgent Consulting Provider: Cardiology Nikolay Consult Reason/Comments: NSTEMI Do you want consulting provider notified?: Yes 10/11/20 16:57 Consult Physician Routine Consulting Provider: Lissa Link Consult Reason/Comments: Post Interventional patient Do you want consulting provider notified?: Already Contacted Primary care physician: Stated None Hospital Course: 70-year-old male in with complaints of chest pain with her chest pain was typical and patient is found to have non-ST elevation microinfarction patient underwent cardiac catheterization and stenting to RCA. Patient had a troponin of around 25. Patient's hemoglobin A1c is elevated to 9.4 patient is being started on metformin at this time patient is chest pain-free at this time. Echocardiogram showed normal ejection fraction. Patient wanted tonight for any ventricular arrhythmias and the possibility of discharge tomorrow. 10/13/2020 Patient is clinically doing well chest pain-free patient will be discharged today PHYSICAL EXAMINATION: GENERAL: The patient is alert and oriented x3, not in any acute distress. Well developed, well nourished. HEENT: Pupils are round and equally reacting to light. EOMI. No scleral icterus. No conjunctival pallor. Normocephalic, atraumatic. No pharyngeal erythema. No thyromegaly. CARDIOVASCULAR: S1 and S2 present. No murmurs, rubs, or gallops. PULMONARY: Chest is clear to auscultation, no wheezing or crackles. ABDOMEN: Soft, nontender, nondistended, normoactive bowel sounds. No palpable organomegaly. MUSCULOSKELETAL: No joint swelling or deformity. EXTREMITIES: No cyanosis, clubbing, or pedal edema. NEUROLOGICAL: Gross neurological examination did not reveal any focal deficits. SKIN: No rashes. Assessment and Plan Plan: -Acute non-ST elevation myocardial infarction: Patient had stenting to RCA. She is presently on dual antiplatelet therapy, statin and the lisinopril. - new-onset diabetes mellitus patient will be started on metformin but patient will need to increase the dose of metformin as well as probably secondary medication. -Hyperlipidemia -Hypertension -Nicotine use: Counseling was provided Patient Condition at Discharge: Stable Plan - Discharge Summary Discharge Rx Participant: No New Discharge Prescriptions: New Aspirin 81 mg PO DAILY chew Prasugrel [Effient] 10 mg PO DAILY@1700 #90 tab Atorvastatin [Lipitor] 80 mg PO DAILY #90 tab Metoprolol Tartrate [Lopressor] 25 mg PO BID #180 tab lisinopriL [Zestril] 2.5 mg PO DAILY #90 tab Continue Latanoprost/Pf [Latanoprost 0.005% Eye Drop] 1 drop BOTH EYES HS Discharge Medication List Latanoprost/Pf [Latanoprost 0.005% Eye Drop] 1 drop BOTH EYES HS 10/11/20 [H istory] Aspirin 81 mg PO DAILY chew 10/13/20 [Rx] Atorvastatin [Lipitor] 80 mg PO DAILY #90 tab 10/13/20 [Rx] Metoprolol Tartrate [Lopressor] 25 mg PO BID #180 tab 10/13/20 [Rx] Prasugrel [Effient] 10 mg PO DAILY@1700 #90 tab 10/13/20 [Rx] lisinopriL [Zestril] 2.5 mg PO DAILY #90 tab 10/13/20 [Rx] Follow up Appointment(s)/Referral(s): James Carter MD [REFERRING] - 1 Week Taya Sargent MD [STAFF PHYSICIAN] - 1 Week (Will call with follow-up appt.) Patient Instructions/Handouts: Heart Attack ([place]) Activity/Diet/Wound Care/Special Instructions: Effient filled at [facility]/copay is $56.40 for 90 day supply. All other meds filled with $0 copay Patient requires glucose testing once per day. Patient has non-insulin dependent diabetes. Glucometer and testing supplies - order faxed to [employer] - they will mail supplies directly to you - [phone] - they will send an assignment of benefits form for you to sign and send back, then they will send your supplies. Free glucometer given to patient to use until supplies are delivered to the home.
[2020-10-13] MEDS ORDERED: metFORMIN 500 MG TAB PO SCH (17:30)
== END 2020-10-13 11:45 | disposition home or self-care (01) | DRG 247 ==
LOC: EC 10:44 → 3SCARD 12:55
PROVIDERS: ADMIT Hospitalist; ATTEND Hospitalist
PROC: B2161ZZ Fluoroscopy of Right and Left Heart using Low Osmolar Contrast (ICD-10-PCS; 2020-10-11)
PROC: B2111ZZ Fluoroscopy of Multiple Coronary Arteries using Low Osmolar Contrast (ICD-10-PCS; 2020-10-11)
PROC: 027035Z Dilation of Coronary Artery, One Artery with Two Drug-eluting Intraluminal Devices, Percutaneous Approach (ICD-10-PCS; principal; 2020-10-11 14:54)
PROC: 4A023N7 Measurement of Cardiac Sampling and Pressure, Left Heart, Percutaneous Approach (ICD-10-PCS; 2020-10-11 14:54)
DX: I21.4 Non-ST elevation (NSTEMI) myocardial infarction (principal); E11.9 Type 2 diabetes mellitus without complications; I10 Essential (primary) hypertension; E78.5 Hyperlipidemia, unspecified; H26.9 Unspecified cataract; Z72.0 Tobacco use; Z71.6 Tobacco abuse counseling; Z79.899 Other long term (current) drug therapy; Z88.2 Allergy status to sulfonamides; Z98.890 Other specified postprocedural states; Z82.49 Family history of ischemic heart disease and other diseases of the circulatory system
CPT/HCPCS: 36415; 71046; 80048; 80053; 80061; 82565; 83036; 83735; 83880; 84484; 85025; 85610; 85730; 93005; 93306; 93458; 96365; 96376; 99285

== ENCOUNTER → 2020-10-21 | Outpatient (CLI) | payer MEDICARE ==
[2020-10-21 23:32] LABS: Chol/HDL Ratio 4.12; LDL Cholesterol,Calculated 60.6 mg/dL (0.0-131.0); VLDL Calculation 20.4 mg/dL (5.00-40.00)
== END | disposition home or self-care (01) ==
LOC: LABWHC1 09:43
PROVIDERS: ATTEND Internal Medicine Cardiovascular Disease
DX: E78.5 Hyperlipidemia, unspecified (principal); I25.10 Atherosclerotic heart disease of native coronary artery without angina pectoris
CPT/HCPCS: 36415; 80061; 84450; 84460

== ENCOUNTER 2021-08-29 07:46 | Observation (INO) | payer MEDICARE ==
[2021-08-29] MEDS ORDERED: ASPIRIN 81 MG PO STA (08:04)
[2021-08-29] MEDS ORDERED: NITROGLYCERIN OINT 1 INCH/GM PACKET TOPICAL STA (08:04)
--- NOTE | 2021-08-29 08:12 | ED ---
General Adult HPI - General Chief complaint: Chest Pain Stated complaint: chest pain Time Seen by Provider: 08/29/21 07:47 Source: patient, family, RN notes reviewed Mode of arrival: wheelchair Limitations: no limitations - History of Present Illness Initial comments: Patient is a pleasant 71-year-old male presenting to the emergency department chest discomfort. Onset of symptoms was when he awoke around an hour ago. Discomfort is minimal at this point. Discomfort has been waxing and waning. As comfort feels sharp or pressure like or indigestion-like. Patient does have previous cardiac stenting however symptoms were not similar to this. Patient questions if he has minimal associated dyspnea. No nausea or diaphoresis. No leg pain or leg swelling. - Related Data Home Medications Medication Instructions Recorded Confirmed Latanoprost/Pf [Latanoprost 0.005% 1 drop BOTH EYES HS 10/11/20 08/29/21 Eye Drop] Aspirin 81 mg PO HS 08/29/21 08/29/21 lisinopriL [Zestril] 5 mg PO DAILY 08/29/21 08/29/21 metFORMIN HCL ER [Glucophage XR] 1,000 mg PO W/SUPPER 08/29/21 08/29/21 Previous Rx's Medication Instructions Recorded Atorvastatin [Lipitor] 80 mg PO DAILY #90 tab 10/13/20 Metoprolol Tartrate [Lopressor] 25 mg PO BID #180 tab 10/13/20 Prasugrel [Effient] 10 mg PO DAILY@1700 #90 tab 10/13/20 Allergies Allergy/AdvReac Type Severity Reaction Status Date / Time Sulfa (Sulfonamide Allergy Unknown Verified 08/29/21 08:48 Antibiotics) Review of Systems ROS Statement: Those systems with pertinent positive or pertinent negative responses have been documented in the HPI. ROS Other: All systems not noted in ROS Statement are negative. Constitutional: Denies: fever Eyes: Denies: eye pain ENT: Denies: ear pain Respiratory: Reports: as per HPI. Denies: cough Cardiovascular: Reports: as per HPI, chest pain Endocrine: Denies: fatigue Gastrointestinal: Denies: abdominal pain Genitourinary: Denies: dysuria Musculoskeletal: Denies: back pain Skin: Denies: rash Neurological: Denies: weakness Past Medical History Past Medical History: Chest Pain / Angina Additional Past Medical History / Comment(s): "eye pressure", cataracts History of Any Multi-Drug Resistant Organisms: None Reported Past Surgical History: Heart Catheterization With Stent Additional Past Surgical History / Comment(s): Detached retina x 2-lasered Past Anesthesia/Blood Transfusion Reactions: No Reported Reaction Past Psychological History: No Psychological Hx Reported Smoking Status: Former smoker Past Alcohol Use History: None Reported Past Drug Use History: None Reported - Past Family History Father Family Medical History: Myocardial Infarction ([place]) General Exam Limitations: no limitations General appearance: alert, in no apparent distress Head exam: Present: normocephalic Eye exam: Present: normal appearance Neck exam: Present: normal inspection Respiratory exam: Present: normal lung sounds bilaterally. Absent: chest wall tenderness Cardiovascular Exam: Present: regular rate, normal rhythm Expanded Peripheral pulses: 2+: Radial (R), Radial (L), Posterior Tibialis (R), Posterior Tibialis (L) GI/Abdominal exam: Present: soft. Absent: tenderness Extremities exam: Present: normal inspection. Absent: pedal edema, calf tenderness Neurological exam: Present: alert Psychiatric exam: Present: normal affect, normal mood Skin exam: Present: normal color Course Vital Signs 08/29/21 08/29/21 07:49 08:29 Temperature 98.1 F Pulse Rate 70 62 Respiratory 22 18 Rate Blood Pressure 197/90 167/81 O2 Sat by Pulse 99 98 Oximetry EKG Findings - EKG Comments: EKG Findings:: Normal sinus rhythm rate 70. [place] 106. QRS 98. QT 408. QTC 440. Normal axis. Normal QRS. No acute ST change. Medical Decision Making - Medical Decision Making Patient reevaluated and resting comfortably in bed. Patient feels improved with nitroglycerin paste. Patient and family updated on results and plan. Case was discussed in detail with Dr. aguirre, who will admit covering for Dr. Darling. - Lab Data Result diagrams: 08/29/21 08:00 08/29/21 08:00 Lab Results 08/29/21 08/29/21 08/29/21 Range/Units 08:00 08:00 08:00 WBC 10.4 (3.8-10.6) k/uL RBC 5.50 (4.30-5.90) m/uL Hgb 15.5 (13.0-17.5) gm/dL Hct 46.9 (39.0-53.0) % MCV 85.2 (80.0-100.0) fL MCH 28.2 (25.0-35.0) pg MCHC 33.1 (31.0-37.0) g/dL RDW 13.0 (11.5-15.5) % Plt Count 270 (150-450) k/uL MPV 7.6 Neutrophils % 58 % Lymphocytes % 29 % Monocytes % 6 % Eosinophils % 4 % Basophils % 1 % Neutrophils # 6.0 (1.3-7.7) k/uL Lymphocytes # 3.0 (1.0-4.8) k/uL Monocytes # 0.7 (0-1.0) k/uL Eosinophils # 0.4 (0-0.7) k/uL Basophils # 0.1 (0-0.2) k/uL PT 10.2 (9.0-12.0) sec INR 0.9 (<1.2) APTT 24.2 (22.0-30.0) sec D-Dimer 0.68 H (<0.60) mg/L FEU Sodium 140 (137-145) mmol/L Potassium 4.3 (3.5-5.1) mmol/L Chloride 108 H (98-107) mmol/L Carbon Dioxide 22 (22-30) mmol/L Anion Gap 10 mmol/L BUN 20 (9-20) mg/dL Creatinine 1.03 (0.66-1.25) mg/dL Est GFR (CKD-EPI)AfAm 83 (>60 ml/min/1.73 sqM) Est GFR (CKD-EPI)NonAf 72 (>60 ml/min/1.73 sqM) Glucose 134 H (74-99) mg/dL Calcium 9.7 (8.4-10.2) mg/dL Magnesium 1.8 (1.6-2.3) mg/dL Total Bilirubin 1.0 (0.2-1.3) mg/dL AST 21 (17-59) U/L ALT 18 (4-49) U/L Alkaline Phosphatase 59 (38-126) U/L Troponin I (0.000-0.034) ng/mL Total Protein 7.1 (6.3-8.2) g/dL Albumin 4.4 (3.5-5.0) g/dL 08/29/21 Range/Units 08:00 WBC (3.8-10.6) k/uL RBC (4.30-5.90) m/uL Hgb (13.0-17.5) gm/dL Hct (39.0-53.0) % MCV (80.0-100.0) fL MCH (25.0-35.0) pg MCHC (31.0-37.0) g/dL RDW (11.5-15.5) % Plt Count (150-450) k/uL MPV Neutrophils % % Lymphocytes % % Monocytes % % Eosinophils % % Basophils % % Neutrophils # (1.3-7.7) k/uL Lymphocytes # (1.0-4.8) k/uL Monocytes # (0-1.0) k/uL Eosinophils # (0-0.7) k/uL Basophils # (0-0.2) k/uL PT (9.0-12.0) sec INR (<1.2) APTT (22.0-30.0) sec D-Dimer (<0.60) mg/L FEU Sodium (137-145) mmol/L Potassium (3.5-5.1) mmol/L Chloride (98-107) mmol/L Carbon Dioxide (22-30) mmol/L Anion Gap mmol/L BUN (9-20) mg/dL Creatinine (0.66-1.25) mg/dL Est GFR (CKD-EPI)AfAm (>60 ml/min/1.73 sqM) Est GFR (CKD-EPI)NonAf (>60 ml/min/1.73 sqM) Glucose (74-99) mg/dL Calcium (8.4-10.2) mg/dL Magnesium (1.6-2.3) mg/dL Total Bilirubin (0.2-1.3) mg/dL AST (17-59) U/L ALT (4-49) U/L Alkaline Phosphatase (38-126) U/L Troponin I <0.012 (0.000-0.034) ng/mL Total Protein (6.3-8.2) g/dL Albumin (3.5-5.0) g/dL - Radiology Data Radiology results: image reviewed (Chest x-ray shows no acute process) Disposition Clinical Impression: Chest pain Disposition: ADMITTED IP TO THIS HOSP Is patient prescribed a controlled substance at d/c from ED?: No Referrals: Kevin Darling III, MD [Primary Care Provider] - 1-2 days Decision Time: 09:34
[2021-08-29 08:22] LABS: Basophils # (A) 0.1 k/uL (0-0.2); Basophils % (A) 1 %; Eosinophils # (A) 0.4 k/uL (0-0.7); Eosinophils % (A) 4 %; HCT 46.9 % (39.0-53.0); HGB 15.5 gm/dL (13.0-17.5); Lymphocytes % (A) 29 %; MCH 28.2 pg (25.0-35.0); MCHC 33.1 g/dL (31.0-37.0); MCV 85.2 fL (80.0-100.0); Mean Platelet Volume 7.6; Monocytes # (A) 0.7 k/uL (0-1.0); Monocytes % (A) 6 %; Neutrophils % (A) 58 %; Platelet Count 270 k/uL (150-450); WBC 10.4 k/uL (3.8-10.6)
[2021-08-29 08:31] LABS: Albumin 4.4 g/dL (3.5-5.0); Calcium 9.7 mg/dL (8.4-10.2); Magnesium 1.8 mg/dL (1.6-2.3); Potassium 4.3 mmol/L (3.5-5.1); Total Protein 7.1 g/dL (6.3-8.2)
[2021-08-29 08:46] LABS: INR 0.9 (<1.2); Partial Thromboplastin Time 24.2 sec (22.0-30.0); Prothrombin Time 10.2 sec (9.0-12.0)
--- NOTE | 2021-08-29 08:46 | XR ---
EXAMINATION TYPE: XR chest 2V DATE OF EXAM: 08/29/2021 8:19 AM COMPARISON:Chest radiographs from 10/11/2020 CLINICAL INDICATION:Male, 71 years old with history of Chest Pain; [facility], TECHNIQUE: Frontal and lateral views of the chest. FINDINGS: Lungs/Pleura: There is no evidence of pleural effusion, focal consolidation, or pneumothorax. Pulmonary vascularity: Unremarkable. Heart/mediastinum: Cardiomediastinal silhouette is unremarkable. Musculoskeletal: No acute osseous pathology. IMPRESSION: No acute cardiopulmonary disease/process.
[2021-08-29] MEDS ORDERED: NITROGLYCERIN SL TABS 0.4 MG TAB SUBLINGUAL PRN (09:35)
--- NOTE | 2021-08-29 11:04 | P.CRDCN ---
History of Present Illness Consult date: 08/29/21 Chief complaint: Chest pain History of present illness: This is a pleasant 71-year-old gentleman who sees Dr. Sargent irregularly with a past medical history significant for coronary artery disease as well as hypertension and dyslipidemia who requested to see in the emergency department for further evaluation of chest discomfort in September 2020 he underwent successful stenting of the RCA and PLV branch of the RCA using drug-eluting stent in the setting of acute non-ST elevation myocardial infarction. He has done well. This time he was in his usual state of health yesterday when he started experiencing discomfort in the middle of the chest as a long run of discomfort did not radiate to his arms or neck or shoulder or back and was not associated with any shortness of breath or sweating or dizziness or lightheadedness or any feeling of heart racing or fluttering. The EKG showed sinus rhythm without any significant ST or T-wave abnormalities. The first set of enzymes came in to be unremarkable. The chest x-ray did not show any acute abnormalities. Prior echo from earlier this year showed normal left ventricular systolic function without significant valvular abnormalities. Currently the patient is chest pain-free. Hemodynamically stable as well. He is in process of being admitted to the observation unit. Past Medical History Past Medical History: Chest Pain / Angina Additional Past Medical History / Comment(s): "eye pressure", cataracts History of Any Multi-Drug Resistant Organisms: None Reported Past Surgical History: Heart Catheterization With Stent Additional Past Surgical History / Comment(s): Detached retina x 2-lasered Past Anesthesia/Blood Transfusion Reactions: No Reported Reaction Past Psychological History: No Psychological Hx Reported Smoking Status: Former smoker Past Alcohol Use History: None Reported Past Drug Use History: None Reported - Past Family History Father Family Medical History: Myocardial Infarction ([place]) Medications and Allergies Home Medications Medication Instructions Recorded Confirmed Type Latanoprost/Pf [Latanoprost 0.005% 1 drop BOTH EYES HS 10/11/20 08/29/21 History Eye Drop] Atorvastatin [Lipitor] 80 mg PO DAILY #90 tab 10/13/20 08/29/21 Rx Metoprolol Tartrate [Lopressor] 25 mg PO BID #180 tab 10/13/20 08/29/21 Rx Prasugrel [Effient] 10 mg PO DAILY@1700 #90 tab 10/13/20 08/29/21 Rx Aspirin 81 mg PO HS 08/29/21 08/29/21 History lisinopriL [Zestril] 5 mg PO DAILY 08/29/21 08/29/21 History metFORMIN HCL ER [Glucophage XR] 1,000 mg PO W/SUPPER 08/29/21 08/29/21 History Allergies Allergy/AdvReac Type Severity Reaction Status Date / Time Sulfa (Sulfonamide Allergy Unknown Verified 08/29/21 08:48 Antibiotics) Physical Exam Vitals: Vital Signs Temp Pulse Resp BP Pulse Ox 08/29/21 09:35 57 L 18 137/74 97 08/29/21 08:29 62 18 167/81 98 08/29/21 07:49 98.1 F 70 22 197/90 99 Intake and Output 08/28/21 08/29/21 08/29/21 22:59 06:59 14:59 Other: Weight 72.575 kg - Constitutional General appearance: no acute distress - Respiratory Respiratory: bilateral: CTA - Cardiovascular Rhythm: regular Heart sounds: normal: S1, S2 Results 08/29/21 08:00 08/29/21 08:00 Cardiac Enzymes 08/29/21 08/29/21 Range/Units 08:00 08:00 AST 21 (17-59) U/L Troponin I <0.012 (0.000-0.034) ng/mL Coagulation 08/29/21 Range/Units 08:00 PT 10.2 (9.0-12.0) sec APTT 24.2 (22.0-30.0) sec CBC 08/29/21 Range/Units 08:00 WBC 10.4 (3.8-10.6) k/uL RBC 5.50 (4.30-5.90) m/uL Hgb 15.5 (13.0-17.5) gm/dL Hct 46.9 (39.0-53.0) % Plt Count 270 (150-450) k/uL Comprehensive Metabolic Panel 08/29/21 Range/Units 08:00 Sodium 140 (137-145) mmol/L Potassium 4.3 (3.5-5.1) mmol/L Chloride 108 H (98-107) mmol/L Carbon Dioxide 22 (22-30) mmol/L BUN 20 (9-20) mg/dL Creatinine 1.03 (0.66-1.25) mg/dL Glucose 134 H (74-99) mg/dL Calcium 9.7 (8.4-10.2) mg/dL AST 21 (17-59) U/L ALT 18 (4-49) U/L Alkaline Phosphatase 59 (38-126) U/L Total Protein 7.1 (6.3-8.2) g/dL Albumin 4.4 (3.5-5.0) g/dL Current Medications Generic Name Dose Route Start Last Admin Trade Name Freq PRN Reason Stop Dose Admin Aspirin 325 mg 08/30/21 09:00 Aspirin 325 Mg Tab PO DAILY LESLEY Nitroglycerin 0.4 mg 08/29/21 09:35 Nitroglycerin Sl Tabs 0.4 Mg Tab SUBLINGUAL Q5M PRN Chest Pain Nitroglycerin 1 inch 08/29/21 13:00 Nitroglycerin Oint 1 Inch/Gm Packet TOPICAL Q6HR LESLEY Sodium Chloride 10 ml 08/29/21 21:00 Sodium Chloride 0.9% Flush 10 Ml Syringe IV BID LESLEY Intake and Output 08/28/21 08/29/21 08/29/21 22:59 06:59 14:59 Other: Weight 72.575 kg Patient Weight 08/30/21 06:59 Weight 72.575 kg 08/29/21 08:00 08/29/21 08:00 Assessment and Plan Assessment: Assessment #1 atypical chest discomfort which has resolved #2 coronary artery disease with prior stenting of the RCA and PLV #3 hypertension #4 dyslipidemia Plan #1 rule out acute coronary event. We'll follow-up with the serial cardiac enzymes #2 the patient will be admitted to the observation unit #3 further recommendation to follow
[2021-08-29] MEDS: NITROGLYCERIN OINT 1 INCH/GM PACKET TOPICAL SCH ×2 (14:07→20:32)
[2021-08-29] MEDS ORDERED: PRASUGREL 10 MG TAB PO SCH (17:00)
[2021-08-29] MEDS: metFORMIN 500 MG TAB PO SCH (17:17)
[2021-08-29 17:35] LABS: Glucose,Whole Blood 116 mg/dL (75-99)
--- NOTE | 2021-08-29 19:10 | HP ---
HISTORY AND PHYSICAL DATE OF SERVICE: 08/29/2021 CHIEF COMPLAINT: Chest pain. HISTORY OF PRESENT ILLNESS: This 71-year-old gentleman with a past medical history of multiple medical problems, including chest pain and angina, had CAD and stent in September of this year. The patient is followed by Dr. Darling in the outpatient setting. Patient apparently was admitted to [facility] with a dull pain felt in the anterior part of chest radiating across both shoulders and radiating to the back, also. Patient came to [facility] and was admitted for further evaluation and treatment. The pain has almost subsided, according to him. EKG showed some U waves; otherwise no other acute abnormality. Cardiology evaluation is in progress. Troponins are negative. Patient admitted for further evaluation and treatment. There is no history of any fever, rigor or chills at this time. PAST MEDICAL HISTORY: History of glaucoma, cataracts, chest pain, angina. HOME MEDICATIONS: Zestril, Effient, Lipitor, aspirin, Glucophage, lopressor, latanoprost. Doses are reviewed. ALLERGIES: SULFA. FAMILY HISTORY: History of myocardial infarction in the family. SOCIAL HISTORY: Previous history of smoking. No current smoking or alcohol intake. REVIEW OF SYSTEMS: ENT: No diminished hearing. No diminished vision. CARDIOVASCULAR SYSTEM: As mentioned earlier. RESPIRATORY SYSTEM: As mentioned earlier. GI: As mentioned earlier. : No dysuria. NERVOUS SYSTEM: No numbness, weakness. ALLERGY/IMMUNOLOGY: No asthma or hay fever. MUSCULOSKELETAL: As mentioned earlier. HEMATOLOGY/ONCOLOGY: No history of anemia. ENDOCRINE: As mentioned earlier. . CONSTITUTIONAL: As mentioned earlier. DERMATOLOGY: Negative. RHEUMATOLOGY: Negative. PSYCHIATRY: As mentioned earlier. PHYSICAL EXAMINATION: Patient alert and oriented x3. Pulse is 55, blood pressure 116/63, respirations 16, temperature 97.8, pulse ox 98% on room air. HEENT: Conjunctivae normal. NECK: No jugular venous distention. CARDIOVASCULAR: S1, S2 muffled. No S3. No S4. RESPIRATION: Breath sounds diminished at the bases. No rhonchi. No crackles. ABDOMEN: Soft, nontender. No mass palpable. LEGS: No edema. No swelling. NERVOUS SYSTEM: Higher functions as mentioned earlier. Moves all 4 limbs. No focal motor or sensory deficit. LYMPHATICS: No lymph node palpable in neck, axillae or groin. SKIN: No ulcer, rash, bleeding. JOINTS: No active deforming arthropathy. LABS: Labs at this time show CBC within normal limits and D-dimer is 0.68. Sodium is 140, potassium 4.3. Glucose 134. ASSESSMENT: 1. Chest pain for evaluation; possible unstable angina. 2. Elevated D-dimer. 3. History of coronary artery disease, stent. 4. History of glaucoma. 5. History of cataracts. 6. History of detached retina. 7. Remote history of nicotine dependence. RECOMMENDATIONS AND DISCUSSION: In this 71-year-old gentleman who presented with multiple complex medical issues, we will monitor the patient closely, continue the current medications, continue symptomatic treatment. Cardiology consultation. I would also recommend a CT scan of the chest with contrast to rule out the possibility of pulmonary embolism. Resume the home medications. Monitor blood sugars closely. Prognosis guarded because of multiple complex medical issues. Further recommendations to follow. A copy of this dictation is being forwarded to Dr. Darling, who is the primary surgeon. MMLIDIAL / MEGAN: [id number] /
--- NOTE | 2021-08-29 20:41 | CT ---
EXAMINATION TYPE: CT angio chest DATE OF EXAM: 08/29/2021 COMPARISON: None HISTORY: Chest and upper back pain. CT DLP: 238.9 mGycm Automated exposure control for dose reduction was used. CONTRAST: Performed with IV Contrast, patient injected with 100 mL of Isovue 370. There are 3-D post processed images. The lungs are clear of consolidation. There is no pleural effusion. There is mild pulmonary emphysema . There is no evidence of a pulmonary mass. There is no pleural effusion. There is no pericardial eff usion. There are no hilar masses. There is no mediastinal adenopathy. Thoracic aorta is intact. There is no aneurysm or dissection. The ascending aorta measures 3.2 cm. There is normal contrast opacification of the pulmonary arteries. There are no filling defects. There is 25% wedging of T11 vertebral body. Impression no evidence of pulmonary embolism. Emphysema. No suspicious pulmonary mass. T11 mild compression fracture without change compared to chest x-ray of 10/11/2020.
[2021-08-29] MEDS ORDERED: LATANOPROST 0.005% OPHTH DROPS 2.5 ML BTL BOTH EYES SCH (21:00)
[2021-08-29 21:05] LABS: Glucose,Whole Blood 113 mg/dL (75-99)
[2021-08-29] MEDS: INSULIN ASPART (NovoLOG) 100 UNIT/ML VIAL SQ SCH (21:26)
[2021-08-29] MEDS: METOPROLOL TARTRATE 25 MG TAB PO SCH (21:45)
[2021-08-29] MEDS: FAMOTIDINE 20 MG/2 ML VIAL IV SCH (21:45)
[2021-08-29] MEDS: HEPARIN SODIUM,PORCINE/PF 5,000 UNIT/0.5 ML SYRINGE SQ SCH (21:46)
[2021-08-30] MEDS: NITROGLYCERIN OINT 1 INCH/GM PACKET TOPICAL SCH ×2 (01:39→04:52)
[2021-08-30 07:33] VITALS: RESP 18; TEMP 97.5
[2021-08-30 07:44] LABS: Glucose,Whole Blood 102 mg/dL (75-99)
[2021-08-30] MEDS: INSULIN ASPART (NovoLOG) 100 UNIT/ML VIAL SQ SCH ×2 (07:59→13:07)
[2021-08-30] MEDS: metFORMIN 500 MG TAB PO SCH (08:12)
[2021-08-30] MEDS: METOPROLOL TARTRATE 25 MG TAB PO SCH ×2 (08:12→10:58)
[2021-08-30] MEDS: HEPARIN SODIUM,PORCINE/PF 5,000 UNIT/0.5 ML SYRINGE SQ SCH (08:13)
[2021-08-30] MEDS: FAMOTIDINE 20 MG/2 ML VIAL IV SCH (08:13)
[2021-08-30] MEDS ORDERED: ATORVASTATIN 80 MG TAB PO SCH (09:00)
[2021-08-30] MEDS ORDERED: ASPIRIN 325 MG TAB PO SCH (09:00)
[2021-08-30] MEDS ORDERED: ASPIRIN 81 MG PO SCH (09:00)
[2021-08-30] MEDS ORDERED: lisinopriL 5 MG TAB PO SCH (09:00)
[2021-08-30 09:03] LABS: African American GFR (CKD) 86.2 (60.0-200.0); Blood Urea Nitrogen 16.7 mg/dL (9.0-27.0); Calcium 9.6 mg/dL (8.7-10.3); Carbon Dioxide 27.4 mmol/L (20.0-27.5); Chloride 107 mmol/L (96-109); Chol/HDL Ratio 3.13 Ratio; Glucose 102 mg/dL (70-110); LDL Cholesterol,Calculated 57.3 mg/dL (0.0-131.0); Non-African American GFR(CKD) 74.3 (60.0-200.0); Potassium 4.9 mmol/L (3.5-5.5); Sodium 143 mmol/L (135-145)
[2021-08-30 09:04] LABS: Basophils # (A) 0.06 X 10*3/uL (0.00-0.10); Basophils % (A) 0.7 %; Eosinophils # (A) 0.27 X 10*3/uL (0.04-0.35); Eosinophils % (A) 3.3 %; HGB 13.4 g/dL (13.0-17.0); Lymphocytes % (A) 23.3 %; MCH 27.7 pg (27.0-32.0); MCHC 31.9 g/dL (32.0-37.0); Mean Platelet Volume 10.5 fL (9.5-12.2); Monocytes # (A) 0.61 X 10*3/uL (0.20-1.00); Monocytes % (A) 7.5 %; Platelet Count 238 X 10*3/uL (140-440); RBC 4.83 X 10*6/uL (4.40-5.60); WBC 8.16 X 10*3/uL (4.50-10.00)
--- NOTE | 2021-08-30 10:02 | P.PN ---
Subjective Progress Note Date: 08/30/21 HISTORY OF PRESENT ILLNESS: This is a pleasant 71-year-old gentleman who sees Dr. Sargent irregularly with a past medical history significant for coronary artery disease as well as hypertension and dyslipidemia who requested to see in the emergency department for further evaluation of chest discomfort in September 2020 he underwent successful stenting of the RCA and PLV branch of the RCA using drug-eluting stent in the setting of acute non-ST elevation myocardial infarction. He has done well. This time he was in his usual state of health yesterday when he started experiencing discomfort in the middle of the chest as a long run of discomfort did not radiate to his arms or neck or shoulder or back and was not associated with any shortness of breath or sweating or dizziness or lightheadedness or any feeling of heart racing or fluttering. The EKG showed sinus rhythm without any significant ST or T-wave abnormalities. The first set of enzymes came in to be unremarkable. The chest x-ray did not show any acute abnormalities. Prior echo from earlier this year showed normal left ventricular systolic function without significant valvular abnormalities. Currently the patient is chest pain-free. Hemodynamically stable as well. He is in process of being admitted to the observation unit. 08/30/2021 Patient examined this morning at the bedside. Patient denies chest pain or pressure. He denies shortness of breath. Troponins are negative 3. Vital signs are stable. PHYSICAL EXAM: VITAL SIGNS: Reviewed. GENERAL: Well-developed in no acute distress. NECK: Supple. No JVD or thyromegaly LUNGS: Respirations even and unlabored. Lungs essentially clear to auscultation bilaterally. HEART: Regular rate and rhythm. S1 and S2 heard. EXTREMITIES: Normal range of motion. No clubbing or cyanosis. Peripheral pulses intact. No lower extremity edema ASSESSMENT: Chest pain, atypical, troponin negative 3 Coronary artery disease with previous stenting of the RCA and PLV Hypertension Hyperlipidemia PLAN: Obtain 2D echo to assess cardiac structure and function Continue current cardiac medications Patient to undergo stress echo today Patient may be discharged home this afternoon if stress echo is negative and echocardiogram does not reveal any significant abnormalities He may follow up outpatient with Dr. Sargent Nurse practitioner note has been reviewed by physician. Signing provider agrees with the documented findings, assessment, and plan of care. Objective - Vital Signs Vital signs: Vital Signs Temp 97.5 F L 12/13/21 07:00 Pulse 57 L 08/30/21 07:00 Resp 18 08/30/21 07:00 BP 128/77 08/30/21 07:00 Pulse Ox 97 08/30/21 07:00 Intake & Output 08/29/21 08/30/21 08/30/21 18:59 06:59 18:59 Intake Total 180 3 Balance 180 3 Weight 72.575 kg Intake: Oral 180 3 Other: # Voids 3 2 - Labs CBC & Chem 7: 08/30/21 05:13 08/30/21 05:13 Labs: Abnormal Lab Results - Last 24 Hours (Table) 08/29/21 08/29/21 08/30/21 Range/Units 17:34 21:04 05:13 MCHC 31.9 L (32.0-37.0) g/dL Anion Gap (10.00-18.00) mmol/L POC Glucose (mg/dL) 116 H 113 H (75-99) mg/dL HDL Cholesterol (40.00-60.00) mg/dL 08/30/21 08/30/21 Range/Units 05:13 07:31 MCHC (32.0-37.0) g/dL Anion Gap 8.60 L (10.00-18.00) mmol/L POC Glucose (mg/dL) 102 H (75-99) mg/dL HDL Cholesterol 34.80 L (40.00-60.00) mg/dL
--- NOTE | 2021-08-30 12:01 | ECHOF ---
Referral Reason:LV function, chest pain MEASUREMENTS -------- HEIGHT: 182.9 cm WEIGHT: 72.6 kg BP: RVIDd: 3.0 cm (< 3.3) IVSd: 0.8 cm (0.6 - 1.1) LVIDd: 4.9 cm (3.9 - 5.3) LVPWd: 1.0 cm (0.6 - 1.1) IVSs: 1.4 cm LVIDs: 2.8 cm LVPWs: 1.8 cm LA Diam: 3.9 cm (2.7 - 3.8) LAESV Index (A-L): 24.39 ml/m Ao Diam: 3.6 cm (2.0 - 3.7) AV Cusp: 1.1 cm (1.5 - 2.6) LA Diam: 4.2 cm (2.7 - 3.8) MV EXCURSION: 22.213 mm (> 18.000) MV EF SLOPE: 123 mm/s (70 - 150) EPSS: 0.4 cm MV E Deangelo: 0.78 m/s MV DecT: 175 ms MV A Deangelo: 0.78 m/s MV E/A Ratio: 1.01 AV maxP.64 mmHg AV meanP.35 mmHg RAP: 5.00 mmHg RVSP: 58.82 mmHg FINDINGS -------- Sinus rhythm. This was a technically good study. Left ventricular wall thickness is normal. Overall left ventricular systolic function is low-normal with, an EF between 50 - 55 %. Basal inferior LV wall motion is hypokinetic. The right ventricle is normal in size. Normal LA size by volume 22+/-6 ml/m2. The right atrial size is normal. There is mild aortic valve sclerosis. Peak/mean gradient across the Aortic Valve is 15.64mmHg / 6.3 5mmHg. Mild mitral regurgitation is present. Mild tricuspid regurgitation present. There is moderate pulmonary hypertension. The right ventric ular systolic pressure, as measured by Doppler, is 58.82mmHg. There is no pulmonic regurgitation present. There is no pericardial effusion. CONCLUSIONS -------- 1. Left ventricular wall thickness is normal. 2. Overall left ventricular systolic function is low-normal with, an EF between 50 - 55 %. 3. Basal inferior LV wall motion is hypokinetic. 4. The right ventricle is normal in size. 5. Normal LA size by volume 22+/-6 ml/m2. 6. The right atrial size is normal. 7. There is mild aortic valve sclerosis. 8. Peak/mean gradient across the Aortic Valve is 15.64mmHg / 6.35mmHg. 9. Mild mitral regurgitation is present. 10. Mild tricuspid regurgitation present. 11. There is moderate pulmonary hypertension. 12. The right ventricular systolic pressure, as measured by Doppler, is 58.82mmHg. 13. There is no pulmonic regurgitation present. 14. There is no pericardial effusion. HOSPITAL CHIEF FINANCIAL OFFICER: Catalina Cuellar RDCS
--- NOTE | 2021-08-30 12:16 | ECHOS ---
STRESS ECHOCARDIOGRAM INDICATION: Chest pain. BASELINE HEART RATE: 56 BASELINE BLOOD PRESSURE: 158/78 MAXIMUM HEART RATE: 132 MAXIMUM BLOOD PRESSURE: 197/71 85% MPHR: 125 100% MPHR: 147 METS: 8.3 MAXIMUM STAGE REACHED: 3 TOTAL EXERCISE TIME: 6:57 RESULTS: Baseline EKG shows sinus rhythm, normal axis, normal intervals. Patient exercised on Cordell protocol for a total of 7 minutes achieving 8 METS, 97% of predicted maximal heart rate without chest pain or diagnostic ST-segment depression. Baseline echo shows normal left ventricular size and systolic function. There is hypokinesis involving basal inferior wall suggestive of prior myocardial infarction. Post exercise, the basal inferior wall remains unchanged and there is normal hyperdynamic response of rest of the segments. CONCLUSIONS: 1. Above-average exercise tolerance. 2. Abnormal stress echo showing evidence of small prior basal inferior wall myocardial infarction with preserved LV function without any exercise-induced ischemia. MMODL / IJN: [id number] /
[2021-08-30 12:17] LABS: Glucose,Whole Blood 115 mg/dL (75-99)
[2021-08-30 15:16] VITALS: BP 139/77; PULSE 52
--- NOTE | 2021-08-31 09:29 | P.DS ---
Providers Date of admission: 08/29/21 09:43 Expected date of discharge: 08/30/21 Attending physician: Abhi Hooker MD Consults: 08/29/21 09:35 Consult Physician Urgent Consulting Provider: Javier Hand Consult Reason/Comments: cp Do you want consulting provider notified?: Yes Primary care physician: Kevin Darling Hospital Course: Final diagnosis Chest pain, possible unstable angina Elevated d-dimer, with no evidence of PE noted on CT History of coronary disease with stents history of glaucoma history of cataracts History of detached retina Remote history of nicotine dependence DVT prophylaxis GI prophylaxis Full code Discharge disposition Patient is being discharged in a stable condition with guarded prognosis to home. Patient will follow-up with Dr. Darling in the outpatient setting upon discharge. Patient is to follow-up with cardiology Dr. sargent in the outpatient setting as scheduled. Patient will continue on Imdur 15 mg daily on discharge. Total time taken is greater than 35 minutes. Hospital course This is a 71-year-old male who was recently admitted for chest pain and being closely monitored. Patient was evaluated by cardiology and underwent echo and stress which was negative for any induced ischemia and 2-D echo showed LV systolic function is low to normal with an EFof 50 -55% with some mild mitral and tricuspid regurgitation present. The basal inferior LV wall motion is hypokinetic. Recommend outpatient follow-up with cardiology Dr. Sargent as scheduled. Currently no reports of chest pain, shortness of breath, or palpitations. Patient is afebrile. No reports of nausea or vomiting and patient is tolerating diet. Patient will be discharged home today. Guarded prognosis. On exam vital signs are stable. Cardio S1, S2 are muffled. Respiratory system shows diminished breath sounds at the bases with no wheezing or rhonchi noted. Abdomen is soft and nontender. Nervous system shows no focal deficits. Please refer to medication reconciliation sheet for a list of medications. Patient Condition at Discharge: Fair Plan - Discharge Summary New Discharge Prescriptions: New Isosorbide Mononitrate ER [Imdur] 15 mg PO DAILY #30 tab Continue Latanoprost/Pf [Latanoprost 0.005% Eye Drop] 1 drop BOTH EYES HS Prasugrel [Effient] 10 mg PO DAILY@1700 #90 tab Atorvastatin [Lipitor] 80 mg PO DAILY #90 tab Metoprolol Tartrate [Lopressor] 25 mg PO BID #180 tab lisinopriL [Zestril] 5 mg PO DAILY Aspirin 81 mg PO HS metFORMIN HCL ER [Glucophage XR] 1,000 mg PO W/SUPPER Discharge Medication List Latanoprost/Pf [Latanoprost 0.005% Eye Drop] 1 drop BOTH EYES HS 10/11/20 [Hist ory] Atorvastatin [Lipitor] 80 mg PO DAILY #90 tab 10/13/20 [Rx] Metoprolol Tartrate [Lopressor] 25 mg PO BID #180 tab 10/13/20 [Rx] Prasugrel [Effient] 10 mg PO DAILY@1700 #90 tab 10/13/20 [Rx] Aspirin 81 mg PO HS 08/29/21 [History] lisinopriL [Zestril] 5 mg PO DAILY 08/29/21 [History] metFORMIN HCL ER [Glucophage XR] 1,000 mg PO W/SUPPER 08/29/21 [History] Isosorbide Mononitrate ER [Imdur] 15 mg PO DAILY #30 tab 08/30/21 [Rx] Follow up Appointment(s)/Referral(s): Kevin Darling III, MD [Primary Care Provider] - 1-2 days Taya Sargent MD [STAFF PHYSICIAN] - 09/07/21 3:15 pm Patient Instructions/Handouts: Chest Pain (DC) Activity/Diet/Wound Care/Special Instructions: Activity Limited until follow-up Follow-up with primary care provider on discharge Follow-up with cardiology outpatient as discussed and scheduled Continue medications as prescribed Continue heart healthy diet Discharge Disposition: HOME SELF-CARE
== END 2021-08-30 15:23 | disposition home or self-care (01) ==
LOC: EC 07:46 → 6NMEDSUR 09:43
PROVIDERS: ADMIT Internal Medicine; ATTEND Internal Medicine
DX: R07.89 Other chest pain (principal); R79.89 Other specified abnormal findings of blood chemistry; I25.10 Atherosclerotic heart disease of native coronary artery without angina pectoris; I10 Essential (primary) hypertension; E78.5 Hyperlipidemia, unspecified; I08.1 Rheumatic disorders of both mitral and tricuspid valves; Z20.822 Contact with and (suspected) exposure to COVID-19; K30 Functional dyspepsia; H40.9 Unspecified glaucoma; H26.9 Unspecified cataract; H57.89 Other specified disorders of eye and adnexa; Z79.82 Long term (current) use of aspirin; Z79.899 Other long term (current) drug therapy; Z79.84 Long term (current) use of oral hypoglycemic drugs; Z79.02 Long term (current) use of antithrombotics/antiplatelets; Z88.2 Allergy status to sulfonamides; Z87.891 Personal history of nicotine dependence; Z95.5 Presence of coronary angioplasty implant and graft; Z82.49 Family history of ischemic heart disease and other diseases of the circulatory system; Z87.311 Personal history of (healed) other pathological fracture
CPT/HCPCS: 99285; 96376; 96374; 36415; 93005; 93306; 93351; 85379; 80061; 80053; 80048; 83735; 84484; 85025 ×2; 85610; 85730; 87635; 71046; 71275; G0378 ×2; Q9967

== ENCOUNTER 2023-04-19 23:06 | Emergency (ER) | payer MEDICARE ==
--- NOTE | 2023-04-20 00:06 | XR ---
EXAM: XR Chest, 2 Views CLINICAL HISTORY: ITS.REASON XR Reason: Chest Pain TECHNIQUE: Frontal and lateral views of the chest. COMPARISON: 08/29/2021 FINDINGS: Lungs: Unremarkable. No consolidation. Pleural space: Unremarkable. No pneumothorax. No pleural effusions. Heart: Unremarkable. No cardiomegaly. Mediastinum: Unremarkable. Bones/joints: No acute osseous abnormalities. IMPRESSION: Normal chest.
[2023-04-20 00:15] LABS: Basophils # (A) 0.1 k/uL (0-0.2); Basophils % (A) 1 %; Eosinophils # (A) 0.3 k/uL (0-0.7); Eosinophils % (A) 3 %; HCT 42.2 % (39.0-53.0); Lymphocytes # (A) 1.9 k/uL (1.0-4.8); Lymphocytes % (A) 18 %; MCH 27.8 pg (25.0-35.0); MCHC 33.2 g/dL (31.0-37.0); MCV 83.8 fL (80.0-100.0); Mean Platelet Volume 7.9; Monocytes # (A) 0.6 k/uL (0-1.0); Monocytes % (A) 6 %; Neutrophils # (A) 7.4 k/uL (1.3-7.7); Neutrophils % (A) 72 %; Platelet Count 213 k/uL (150-450); RBC 5.04 m/uL (4.30-5.90); RDW 13.5 % (11.5-15.5); WBC 10.4 k/uL (3.8-10.6)
[2023-04-20 00:25] LABS: ALT 19 U/L (4-49); AST 17 U/L (17-59); African American GFR (CKD) 90 (>60 ml/min/1.73 sqM); Albumin 4.2 g/dL (3.5-5.0); Alkaline Phosphatase 68 U/L (38-126); Anion Gap 8 mmol/L; Blood Urea Nitrogen 17 mg/dL (9-20); Calcium 9.2 mg/dL (8.4-10.2); Carbon Dioxide 25 mmol/L (22-30); Chloride 106 mmol/L (98-107); Glucose 113 mg/dL (74-99); Magnesium 1.6 mg/dL (1.6-2.3); Non-African American GFR(CKD) 78 (>60 ml/min/1.73 sqM); Potassium 3.9 mmol/L (3.5-5.1); Sodium 139 mmol/L (137-145); Total Bilirubin 0.8 mg/dL (0.2-1.3); Total Protein 6.5 g/dL (6.3-8.2)
[2023-04-20 00:37] LABS: Partial Thromboplastin Time 24.5 sec (22.0-30.0); Prothrombin Time 10.4 sec (9.0-12.0)
[2023-04-20 03:43] VITALS: BP 192/91; PULSE 64; RESP 14; TEMP 97.6
--- NOTE | 2023-04-20 04:33 | ED ---
Arrhythmia/Palpitations HPI - General Chief Complaint: Arrhythmia/Palpitations Stated Complaint: heart palpitations Time Seen by Provider: 04/20/23 03:34 Source: patient, family Mode of arrival: ambulatory Limitations: no limitations - History of Present Illness Initial Comments: 73-year-old male presents to the emergency department reporting palpitations. States that he has had this issue for several years. This evening had sudden onset of palpitations and had a rapid heart rate when he presented to the emergency department however converted before we were able to obtain an EKG. He has associated shortness of breath. No fevers. The patient arrives and is a symptomatic at this time. No other alleviating, precipitating or modifying factors - Related Data Home Medications Medication Instructions Recorded Confirmed Latanoprost/Pf [Latanoprost 0.005% 1 drop BOTH EYES HS 10/11/20 08/29/21 Eye Drop] Aspirin 81 mg PO HS 08/29/21 08/29/21 lisinopriL [Zestril] 5 mg PO DAILY 08/29/21 08/29/21 metFORMIN HCL ER [Glucophage XR] 1,000 mg PO W/SUPPER 08/29/21 08/29/21 Previous Rx's Medication Instructions Recorded Atorvastatin [Lipitor] 80 mg PO DAILY #90 tab 10/13/20 Metoprolol Tartrate [Lopressor] 25 mg PO BID #180 tab 10/13/20 Prasugrel [Effient] 10 mg PO DAILY@1700 #90 tab 10/13/20 Isosorbide Mononitrate ER [Imdur] 15 mg PO DAILY #30 tab 08/30/21 Allergies Allergy/AdvReac Type Severity Reaction Status Date / Time Sulfa (Sulfonamide Allergy Unknown Verified 08/29/21 08:48 Antibiotics) Review of Systems ROS Statement: Those systems with pertinent positive or pertinent negative responses have been documented in the HPI. ROS Other: All systems not noted in ROS Statement are negative. Past Medical History Past Medical History: Atrial Fibrillation, Chest Pain / Angina Additional Past Medical History / Comment(s): "eye pressure", cataracts History of Any Multi-Drug Resistant Organisms: None Reported Past Surgical History: Heart Catheterization With Stent Additional Past Surgical History / Comment(s): Detached retina x 2-lasered Past Anesthesia/Blood Transfusion Reactions: No Reported Reaction Date of Last Stent Placement:: september 2020 Past Psychological History: No Psychological Hx Reported Smoking Status: Former smoker Past Alcohol Use History: None Reported Past Drug Use History: None Reported - Past Family History Father Family Medical History: Myocardial Infarction ([place]) General Exam Limitations: no limitations General appearance: alert, in no apparent distress Head exam: Present: atraumatic, normocephalic, normal inspection Eye exam: Present: normal appearance, PERRL, EOMI. Absent: scleral icterus, conjunctival injection, periorbital swelling ENT exam: Present: normal exam, mucous membranes moist Neck exam: Present: normal inspection. Absent: tenderness, meningismus, lymphadenopathy Respiratory exam: Present: normal lung sounds bilaterally. Absent: respiratory distress, wheezes, rales, rhonchi, stridor Cardiovascular Exam: Present: regular rate, normal rhythm, normal heart sounds. Absent: systolic murmur, diastolic murmur, rubs, gallop, clicks GI/Abdominal exam: Present: soft, normal bowel sounds. Absent: distended, tenderness, guarding, rebound, rigid Extremities exam: Present: normal inspection, full ROM, normal capillary refill. Absent: tenderness, pedal edema, joint swelling, calf tenderness Back exam: Present: normal inspection Neurological exam: Present: alert, oriented X3, CN II-XII intact Psychiatric exam: Present: normal affect, normal mood Skin exam: Present: warm, dry, intact, normal color. Absent: rash Course Vital Signs 04/19/23 04/20/23 04/20/23 23:09 03:12 03:42 Temperature 98 F 97.6 F Pulse Rate 80 57 L Pulse Rate [ 64 Pulse Oximetery ] Respiratory 20 18 14 Rate Blood Pressure 198/81 195/98 Blood Pressure 192/91 [Left Arm] O2 Sat by Pulse 98 98 Oximetry Medical Decision Making - Medical Decision Making Was pt. sent in by a medical professional or institution (, PA, [employer], urgent care, hospital, or longterm...) When possible be specific @ -No Did you speak to anyone other than the patient for history (EMS, parent, family, police, friend...)? What history was obtained from this source @ -Spoke with the patient's Did you review nursing and triage notes (agree or disagree)? Why? @ -I reviewed and agree with nursing and triage notes Were old charts reviewed (outside hosp., previous admission, EMS record, old EKG, old radiological studies, urgent care reports/EKG's, longterm records)? Report findings @ -No old charts were reviewed Differential Diagnosis (chest pain, altered mental status, abdominal pain women, abdominal pain men, vaginal bleeding, weakness, fever, dyspnea, syncope, headache, dizziness, GI bleed, back pain, seizure, CVA, palpatations, mental health, musculoskeletal)? @ -Differential Palpitations Ventricular arrhythmias, atrial arrhythmias, myocardial infarction, anemia, th yrotoxicosis, electrolyte imbalance, hypokalemia, pulmonary embolism, pulmonary disease, drugs, alcohol, anxiety, stress.... This is not meant to be an all-inclusive list. EKG interpreted by me (3pts min.). @ -Yes and demonstrates sinus rhythm with a rate of 67. IN interval 144. QRS 93. QTC of 415. No acute ST segment elevations or depressions X-rays interpreted by me (1pt min.). @ -Yes and demonstrates no acute process CT interpreted by me (1pt min.). @ -None done U/S interpreted by me (1pt. min.). @ -None done What testing was considered but not performed or refused? (CT, X-rays, U/S, labs)? Why? @ -None What meds were considered but not given or refused? Why? @ -None Did you discuss the management of the patient with other professionals (professionals i.e. , PA, [employer]KER, lab, RT, psych nurse, delinquency prevention social worker, barrel endshaker adjuster, teacher, seaman officer, housing case manager)? Give summary @ -No Was smoking cessation discussed for >3mins.? @ -No Was critical care preformed (if so, how long)? @ -No Were there social determinants of health that impacted care today? How? (Homelessness, low income, unemployed, alcoholism, drug addiction, transp ortation, low edu. Level, literacy, decrease access to med. care, group home, rehab)? @ -No Was there de-escalation of care discussed even if they declined (Discuss DNR or withdrawal of care, Hospice)? DNR status @ -No What co-morbidities impacted this encounter? (DM, HTN, Smoking, COPD, CAD, Cancer, CVA, ARF, Chemo, Hep., AIDS, mental health diagnosis, sleep apnea, morbid obesity)? @ -None Was patient admitted / discharged? Hospital course, mention meds given and route, prescriptions, significant lab abnormalities, going to OR and other pertinent info. @ -Upon arrival is placed into room 14. There are history of physical exam was performed. We were unable to capture the patient's elevated heart rate on EKG. Laboratory studies were conducted. Patient sent for chest x-ray. Reevaluating and continued to remain asymptomatic. Patient will be discharged home at this time. Recommend Holter monitoring for further evaluation of his arrhythmia. Instructed her to return for any new or worsening symptoms. Patient was agreeable discharged in stable condition Undiagnosed new problem with uncertain prognosis? @ -Yes Drug Therapy requiring intensive monitoring for toxicity (Heparin, Nitro, Insulin, Cardizem)? @ -No Were any procedures done? @ -No Diagnosis/symptom? @ -Acute palpitations Acute, or Chronic, or Acute on Chronic? @ -acute Uncomplicated (without systemic symptoms) or Complicated (systemic symptoms)? @ -complicated Side effects of treatment? @ -No Exacerbation, Progression, or Severe Exacerbation? @ -No Poses a threat to life or bodily function? How? (Chest pain, [place], [place], pneumonia, PE, COPD, DKA, ARF, appy, cholecystitis, CVA, Diverticulitis, Homicidal, Suicidal, threat to staff... and all critical care pts) @ -No - Lab Data Result diagrams: 04/19/23 23:58 04/19/23 23:58 Lab Results 04/19/23 04/19/23 04/19/23 Range/Units 23:58 23:58 23:58 WBC 10.4 (3.8-10.6) k/uL RBC 5.04 (4.30-5.90) m/uL Hgb 14.0 (13.0-17.5) gm/dL Hct 42.2 (39.0-53.0) % MCV 83.8 (80.0-100.0) fL MCH 27.8 (25.0-35.0) pg MCHC 33.2 (31.0-37.0) g/dL RDW 13.5 (11.5-15.5) % Plt Count 213 (150-450) k/uL MPV 7.9 Neutrophils % 72 % Lymphocytes % 18 % Monocytes % 6 % Eosinophils % 3 % Basophils % 1 % Neutrophils # 7.4 (1.3-7.7) k/uL Lymphocytes # 1.9 (1.0-4.8) k/uL Monocytes # 0.6 (0-1.0) k/uL Eosinophils # 0.3 (0-0.7) k/uL Basophils # 0.1 (0-0.2) k/uL PT 10.4 (9.0-12.0) sec INR 1.0 (<1.2) APTT 24.5 (22.0-30.0) sec Sodium 139 (137-145) mmol/L Potassium 3.9 (3.5-5.1) mmol/L Chloride 106 (98-107) mmol/L Carbon Dioxide 25 (22-30) mmol/L Anion Gap 8 mmol/L BUN 17 (9-20) mg/dL Creatinine 0.96 (0.66-1.25) mg/dL Est GFR (CKD-EPI)AfAm 90 (>60 ml/min/1.73 sqM) Est GFR (CKD-EPI)NonAf 78 (>60 ml/min/1.73 sqM) Glucose 113 H (74-99) mg/dL Calcium 9.2 (8.4-10.2) mg/dL Magnesium 1.6 (1.6-2.3) mg/dL Total Bilirubin 0.8 (0.2-1.3) mg/dL AST 17 (17-59) U/L ALT 19 (4-49) U/L Alkaline Phosphatase 68 (38-126) U/L Troponin I (0.000-0.034) ng/mL Total Protein 6.5 (6.3-8.2) g/dL Albumin 4.2 (3.5-5.0) g/dL 04/19/23 Range/Units 23:58 WBC (3.8-10.6) k/uL RBC (4.30-5.90) m/uL Hgb (13.0-17.5) gm/dL Hct (39.0-53.0) % MCV (80.0-100.0) fL MCH (25.0-35.0) pg MCHC (31.0-37.0) g/dL RDW (11.5-15.5) % Plt Count (150-450) k/uL MPV Neutrophils % % Lymphocytes % % Monocytes % % Eosinophils % % Basophils % % Neutrophils # (1.3-7.7) k/uL Lymphocytes # (1.0-4.8) k/uL Monocytes # (0-1.0) k/uL Eosinophils # (0-0.7) k/uL Basophils # (0-0.2) k/uL PT (9.0-12.0) sec INR (<1.2) APTT (22.0-30.0) sec Sodium (137-145) mmol/L Potassium (3.5-5.1) mmol/L Chloride (98-107) mmol/L Carbon Dioxide (22-30) mmol/L Anion Gap mmol/L BUN (9-20) mg/dL Creatinine (0.66-1.25) mg/dL Est GFR (CKD-EPI)AfAm (>60 ml/min/1.73 sqM) Est GFR (CKD-EPI)NonAf (>60 ml/min/1.73 sqM) Glucose (74-99) mg/dL Calcium (8.4-10.2) mg/dL Magnesium (1.6-2.3) mg/dL Total Bilirubin (0.2-1.3) mg/dL AST (17-59) U/L ALT (4-49) U/L Alkaline Phosphatase (38-126) U/L Troponin I <0.012 (0.000-0.034) ng/mL Total Protein (6.3-8.2) g/dL Albumin (3.5-5.0) g/dL Disposition Clinical Impression: Palpitations Disposition: HOME SELF-CARE Condition: Stable Instructions (If sedation given, give patient instructions): Heart Palpitations (ED) Additional Instructions: You need to have a heart monitor test - please call Dr. Millan office to have this Holter monitor ordered. If you have return of your symptoms, please return to the ER Is patient prescribed a controlled substance at d/c from ED?: No Referrals: Kevin Darling III, MD [Primary Care Provider] - 1-2 days Noel Viveros MD [Family Provider] - 1-2 days Time of Disposition: 04:35
== END 2023-04-20 04:54 | disposition home or self-care (01) ==
LOC: EC 04-20 03:54
DX: R00.2 Palpitations (principal); Z79.82 Long term (current) use of aspirin; Z79.899 Other long term (current) drug therapy; Z88.2 Allergy status to sulfonamides; Z87.891 Personal history of nicotine dependence
CPT/HCPCS: 36415; 71046; 80053; 83735; 84484; 85025; 85610; 85730; 93005; 99285

== ENCOUNTER 2023-04-23 15:58 | Observation (INO) | payer MEDICARE ==
[2023-04-23] MEDS ORDERED: HEPARIN SODIUM 1,000 UN/ML (10ML VL) IV PRN (16:29)
[2023-04-23] MEDS ORDERED: DILTIAZEM DRIP BOLUS FROM BAG 1 MG SOLN IV ONE (16:29)
[2023-04-23] MEDS ORDERED: HEPARIN SODIUM 1,000 UN/ML (10ML VL) IV ONE (16:29)
[2023-04-23] MEDS ORDERED: HEPARIN SOD,PORK IN 0.45% NACL 25,000 UNIT in 0.45% NACL 1 250ML.BAG IV SCH (16:30)
[2023-04-23] MEDS ORDERED: DILTIAZEM 125 MG in SODIUM CHLORIDE 0.9% 100 ML IV SCH (16:30)
[2023-04-23 16:42] LABS: Basophils % (A) 0 %; Eosinophils # (A) 0.1 k/uL (0-0.7); Eosinophils % (A) 2 %; HCT 40.4 % (39.0-53.0); HGB 13.7 gm/dL (13.0-17.5); Lymphocytes # (A) 1.2 k/uL (1.0-4.8); Lymphocytes % (A) 15 %; MCH 28.6 pg (25.0-35.0); MCHC 34.1 g/dL (31.0-37.0); MCV 84.1 fL (80.0-100.0); Mean Platelet Volume 7.7; Monocytes # (A) 0.5 k/uL (0-1.0); Monocytes % (A) 6 %; Neutrophils # (A) 6.3 k/uL (1.3-7.7); Neutrophils % (A) 76 %; Platelet Count 214 k/uL (150-450); RDW 13.5 % (11.5-15.5); WBC 8.3 k/uL (3.8-10.6)
[2023-04-23 16:56] LABS: Partial Thromboplastin Time 24.6 sec (22.0-30.0); Prothrombin Time 10.6 sec (9.0-12.0)
[2023-04-23 17:03] LABS: ALT 30 U/L (4-49); AST 27 U/L (17-59); African American GFR (CKD) >90 (>60 ml/min/1.73 sqM); Albumin 3.9 g/dL (3.5-5.0); Alkaline Phosphatase 63 U/L (38-126); Anion Gap 8 mmol/L; Blood Urea Nitrogen 16 mg/dL (9-20); Calcium 9.2 mg/dL (8.4-10.2); Carbon Dioxide 25 mmol/L (22-30); Chloride 107 mmol/L (98-107); Glucose 152 mg/dL (74-99); Magnesium 1.6 mg/dL (1.6-2.3); Non-African American GFR(CKD) 84 (>60 ml/min/1.73 sqM); Potassium 3.8 mmol/L (3.5-5.1); Sodium 140 mmol/L (137-145); Total Protein 6.4 g/dL (6.3-8.2)
[2023-04-23] MEDS ORDERED: NALOXONE 0.4 MG/ML 1 ML VIAL IV PRN (17:28)
--- NOTE | 2023-04-23 17:28 | ED ---
Chest Pain HPI - General Chief Complaint: Chest Pain Stated Complaint: racing heart Time Seen by Provider: 04/23/23 16:05 Source: patient, family Mode of arrival: ambulatory Limitations: no limitations - History of Present Illness Initial Comments: 73-year-old male with past medical history of coronary artery disease who presents to the emergency department reporting chest pain and palpitations. He has a history of 4 stents in his heart. Follows with Dr. Viveros. Patient was in the emergency department on Monday for palpitations. He had no chest pain at that time. We were unable to capture an elevated heart rhythm and therefore the patient was discharged home. He saw Dr. Viveros on Monday and had a heart monitor placed. Patient began having intermittent racing chest this morning however it became more constant this evening. He denies history of irregular heart rhythms. Was just taken off of his antiplatelet earlier this spring. He denies any shortness of breath. Does admit to swelling. No other alleviating, precipitating or modifying factors - Related Data Home Medications Medication Instructions Recorded Confirmed Latanoprost/Pf [Latanoprost 0.005% 1 drop BOTH EYES HS 10/11/20 04/23/23 Eye Drop] metFORMIN HCL ER [Glucophage XR] 1,500 mg PO W/SUPPER 08/29/21 04/23/23 Brimonidine Tartrate [Alphagan P 1 drop LEFT EYE BID 04/23/23 04/23/23 0.2% Ophth Soln] Metoprolol Tartrate [Lopressor] 25 mg PO BID 04/23/23 04/23/23 lisinopriL [Zestril] 5 mg PO DAILY 04/23/23 04/23/23 Previous Rx's Medication Instructions Recorded Atorvastatin [Lipitor] 80 mg PO DAILY #90 tab 10/13/20 Allergies Allergy/AdvReac Type Severity Reaction Status Date / Time Sulfa (Sulfonamide Allergy Unknown Verified 08/29/21 08:48 Antibiotics) Review of Systems ROS Statement: Those systems with pertinent positive or pertinent negative responses have been documented in the HPI. ROS Other: All systems not noted in ROS Statement are negative. Past Medical History Past Medical History: Atrial Fibrillation, Chest Pain / Angina Additional Past Medical History / Comment(s): "eye pressure", cataracts History of Any Multi-Drug Resistant Organisms: None Reported Past Surgical History: Heart Catheterization With Stent Additional Past Surgical History / Comment(s): Detached retina x 2-lasered Past Anesthesia/Blood Transfusion Reactions: No Reported Reaction Date of Last Stent Placement:: september 2020 Past Psychological History: No Psychological Hx Reported Smoking Status: Former smoker Past Alcohol Use History: None Reported Past Drug Use History: None Reported - Past Family History Father Family Medical History: Myocardial Infarction ([place]) General Exam Limitations: no limitations General appearance: alert, in no apparent distress Head exam: Present: atraumatic, normocephalic, normal inspection Eye exam: Present: normal appearance, PERRL, EOMI. Absent: scleral icterus, conjunctival injection, periorbital swelling ENT exam: Present: normal exam, mucous membranes moist Neck exam: Present: normal inspection. Absent: tenderness, meningismus, lymphadenopathy Respiratory exam: Present: normal lung sounds bilaterally. Absent: respiratory distress, wheezes, rales, rhonchi, stridor Cardiovascular Exam: Present: tachycardia, irregular rhythm, normal heart sounds. Absent: systolic murmur, diastolic murmur, rubs, gallop, clicks GI/Abdominal exam: Present: soft, normal bowel sounds. Absent: distended, tenderness, guarding, rebound, rigid Extremities exam: Present: normal inspection, full ROM, normal capillary refill. Absent: tenderness, pedal edema, joint swelling, calf tenderness Back exam: Present: normal inspection Neurological exam: Present: alert, oriented X3, CN II-XII intact Psychiatric exam: Present: normal affect, normal mood Skin exam: Present: warm, dry, intact, normal color. Absent: rash Course Vital Signs 04/23/23 04/23/23 04/23/23 16:04 16:19 16:20 Temperature 98 F Pulse Rate 138 H 128 H Pulse Rate [ 135 H Php Mysql Web Developer ] Respiratory 20 18 Rate Blood Pressure 184/94 158/58 O2 Sat by Pulse 94 L Oximetry 04/23/23 04/23/23 04/23/23 16:55 17:00 18:00 Temperature Pulse Rate 75 75 66 Pulse Rate [ Php Mysql Web Developer ] Respiratory 20 14 16 Rate Blood Pressure 160/97 160/97 135/72 O2 Sat by Pulse 98 Oximetry 04/23/23 04/23/23 19:00 19:52 Temperature 97.8 F Pulse Rate 55 L 53 L Pulse Rate [ Php Mysql Web Developer ] Respiratory 17 18 Rate Blood Pressure 134/67 149/69 O2 Sat by Pulse 98 Oximetry Chest Pain MDM - MDM Was pt. sent in by a medical professional or institution (BJ[facility] Elias, BATH STEWARD, urgent care, hospital, or group home...) When possible be specific @ -No Did you speak to anyone other than the patient for history (EMS, parent, family, police, friend...)? What history was obtained from this source @ -With Did you review nursing and triage notes (agree or disagree)? Why? @ -I reviewed and agree with nursing and triage notes Were old charts reviewed (outside hosp., previous admission, EMS record, old EKG, old radiological studies, urgent care reports/EKG's, group home records)? Report findings @ -I reviewed the patient's ER visit from the third Differential Diagnosis (chest pain, altered mental status, abdominal pain women, abdominal pain men, vaginal bleeding, weakness, fever, dyspnea, syncope, headache, dizziness, GI bleed, back pain, seizure, CVA, palpatations, mental health, musculoskeletal)? @ -Differential Palpitations Ventricular arrhythmias, atrial arrhythmias, myocardial infarction, anemia, thyrotoxicosis, electrolyte imbalance, hypokalemia, pulmonary embolism, pulmonary disease, drugs, alcohol, anxiety, stress.... This is not meant to be an all-inclusive list. EKG interpreted by me (3pts min.). @ -Yes, EKG completed at 1616 demonstrates A. fib with a rate of 125. QRS 94. QTC of 379. No acute ST segment elevations or depressions. Repeat EKG which is done at 1656 demonstrates normal sinus rhythm with a rate of 71. ID interval 141. QRS 100. QTC of 401. No acute ST segment elevations or depressions X-rays interpreted by me (1pt min.). @ -None done CT interpreted by me (1pt min.). @ -None done U/S interpreted by me (1pt. min.). @ -None done What testing was considered but not performed or refused? (CT, X-rays, U/S, labs)? Why? @ -None What meds were considered but not given or refused? Why? @ -Cardizem, the patient converted on his own Did you discuss the management of the patient with other professionals (professionals i.e. BJORN Elias, BATH STEWARD, lab, RT, psych nurse, social economist, civil engineering intern, teacher, credit risk officer, telehealth case manager)? Give summary @ -Yes, spoke with harmony from [facility] except admission Was smoking cessation discussed for >3mins.? @ -No Was critical care preformed (if so, how long)? @ -Yes, 35 minutes Were there social determinants of health that impacted care today? How? (Homelessness, low income, unemployed, alcoholism, drug addiction, transportation, low edu. Level, literacy, decrease access to med. care, correction, rehab)? @ -No Was there de-escalation of care discussed even if they declined (Discuss DNR or withdrawal of care, Hospice)? DNR status @ -No What co-morbidities impacted this encounter? (DM, HTN, Smoking, COPD, CAD, Cancer, CVA, ARF, Chemo, Hep., AIDS, mental health diagnosis, sleep apnea, mo rbid obesity)? @ -Coronary artery disease Was patient admitted / discharged? Hospital course, mention meds given and route, prescriptions, significant lab abnormalities, going to OR and other pertinent info. @ -Upon arrival patient was placed in room 16. A thorough history and physical exam was performed. IV access was established. Laboratories is were conducted. Patient was on continuous pulse ox and cardiac monitoring. 12-lead EKG demonstrated new onset A. fib with RVR. Laboratory studies within normal limits. Patient had a chest x-ray on the third when he was evaluated for palpitations. I did order Cardizem and a heparin drip. Patient did convert before Cardizem was initiated. He remains on heparin drip. His first troponin is negative. Patient will be admitted for chest pain, new onset A. fib with RVR with history of coronary disease. Patient was agreeable to this. Spoke with Harmony from [facility] who agreed to admission Undiagnosed new problem with uncertain prognosis? @ -Yes Drug Therapy requiring intensive monitoring for toxicity (Heparin, Nitro, Insulin, Cardizem)? @ -Heparin Were any procedures done? @ -No Diagnosis/symptom? @ -Acute chest pain, new onset A. fib with RVR Acute, or Chronic, or Acute on Chronic? @ -Acute Uncomplicated (without systemic symptoms) or Complicated (systemic symptoms)? @ -Complicated Side effects of treatment? @ -Bleeding Exacerbation, Progression, or Severe Exacerbation? @ -No Poses a threat to life or bodily function? How? (Chest pain, [place], [place], pneumonia, PE, COPD, DKA, ARF, appy, cholecystitis, CVA, Diverticulitis, Homicidal, Suicidal, threat to staff... and all critical care pts) @ -Yes patient has elevated heart rate Disposition Clinical Impression: Chest pain, Atrial fibrillation with RVR Disposition: ADMITTED IP TO THIS [facility] Condition: Stable Is patient prescribed a controlled substance at d/c from ED?: No Time of Disposition: 17:27 Decision to Admit Reason: Admit from EC Decision Date: 04/23/23 Decision Time: 17:27
[2023-04-23 20:57] LABS: Glucose,Whole Blood 99 mg/dL (70-110)
[2023-04-23] MEDS ORDERED: METOPROLOL TARTRATE 25 MG TAB PO SCH (21:00)
[2023-04-24] MEDS ORDERED: LATANOPROST 0.005% OPHTH DROPS 2.5 ML BTL BOTH EYES SCH
[2023-04-24] MEDS: BRIMONIDINE TARTRATE 0.2% DROPS 5 ML BTL LEFT EYE SCH ×2 (00:48→08:15)
[2023-04-24 06:03] LABS: Glucose,Whole Blood 96 mg/dL (70-110)
[2023-04-24 08:10] VITALS: RESP 15; TEMP 97.9
[2023-04-24] MEDS ORDERED: ATORVASTATIN 80 MG TAB PO SCH (09:00)
[2023-04-24] MEDS ORDERED: APIXABAN 5 MG TAB PO SCH (09:00)
[2023-04-24] MEDS ORDERED: METOPROLOL TARTRATE 25 MG TAB PO SCH (09:00)
[2023-04-24] MEDS ORDERED: lisinopriL 5 MG TAB PO SCH (09:00)
[2023-04-24 10:01] LABS: Basophils % (A) 1 %; Eosinophils # (A) 0.2 k/uL (0-0.7); Eosinophils % (A) 2 %; HCT 41.7 % (39.0-53.0); HGB 13.9 gm/dL (13.0-17.5); Lymphocytes # (A) 1.6 k/uL (1.0-4.8); Lymphocytes % (A) 18 %; MCH 28.5 pg (25.0-35.0); MCHC 33.4 g/dL (31.0-37.0); MCV 85.1 fL (80.0-100.0); Mean Platelet Volume 8.2; Monocytes # (A) 0.5 k/uL (0-1.0); Monocytes % (A) 6 %; Neutrophils # (A) 6.6 k/uL (1.3-7.7); Neutrophils % (A) 73 %; Platelet Count 202 k/uL (150-450); RDW 13.5 % (11.5-15.5); WBC 9.1 k/uL (3.8-10.6)
[2023-04-24 10:10] LABS: Prothrombin Time 10.3 sec (9.0-12.0)
--- NOTE | 2023-04-24 10:14 | P.CRDCN ---
History of Present Illness History of present illness: HISTORY OF PRESENT ILLNESS: This is a 73-year-old male with a past medical history significant for coronary artery disease with previous stenting of the RCA, hypertension, hyperlipidemia, diabetes, and aortic stenosis. Patient follows in the office with Dr. Viveros. We have been asked to see the patient in consultation for atrial fibrillation. Patient examined at the bedside. Patient states on Monday he began having palpitations and he came to the hospital but his palpitations had resolved by the time he came to the ER. An EKG revealed sinus mechanism. He was discharged home. He since followed up in the office and received an event monitor. The patient states yesterday he began having palpitations again while he was watching TV. The patient came back to the ER for further evaluation. The patient was found to be in A. fib with RVR. He was started on IV heparin and received a dose of IV Cardizem. The patient converted to sinus mechanism and is maintaining sinus mechanism this morning. He is mildly bradycardic with a heart rate in the 50s. He denies any chest pain or pressure. He denies any shortness of breath. He is a nonsmoker. He denies any alcohol use. He reports drinking 2 cups of iced tea a day. * EKG reveals atrial flutter ablation with RVR. Repeat EKG reveals sinus mechanism with bradycardia. * Laboratory data: WBC 9.1. Hemoglobin 13.9. Platelet count 202. Sodium 140. Potassium 3.8. BUN 16. Creatinine 0.88. Troponin negative 1. TSH 1.280. * Current home cardiac medications include Lipitor 80 mg daily, lisinopril 5 mg daily, and metoprolol tartrate 25 mg twice a day * Most recent echocardiogram obtained in August 2021 revealing ejection fraction 50-55%, mild MR, mild TR, moderate pulmonary hypertension, and mild aortic valve sclerosis. * Cardiac catheterization history: September 2020 with stenting of RCA REVIEW OF SYSTEMS: At the time of my exam: CONSTITUTIONAL: Denies fever or chills. HEENT: Denies blurred vision, vision changes, or eye pain. Denies hemoptysis CARDIOVASCULAR: Denies chest pain. Denies orthopnea. Denies PND. Denies palpitations RESPIRATORY: Denies shortness of breath. GASTROINTESTINAL: Denies abdominal pain. Denies nausea or vomiting. HEMATOLOGIC: Denies bleeding disorders. GENITOURINARY: Denies any blood in urine. SKIN: Denies pruitis. Denies rash. PHYSICAL EXAM: VITAL SIGNS: Reviewed. GENERAL: Well-developed in no acute distress. HEENT: Head is normocephalic. Pupils are equal, round. Sclerae anicteric. Mucous membranes of the mouth are moist. Neck supple. No JVD or thyromegaly LUNGS: Respirations even and unlabored. Lungs essentially clear to auscultation bilaterally. HEART: Regular rate and rhythm. S1 and S2 heard. Systolic murmur noted ABDOMEN: Soft. Nondistended. Nontender. EXTREMITIES: Normal range of motion. No clubbing or cyanosis. Peripheral pulses intact. No lower extremity edema NEUROLOGIC: Awake and alert. Oriented x 3. ASSESSMENT: Palpitations New-onset paroxysmal atrial fibrillation with RVR, currently maintaining sinus bradycardia Coronary artery disease with stenting of the RCA, September 2020 Hypertension Hyperlipidemia Diabetes Valvular heart disease PLAN: Obtain 2-D echo to assess cardiac structure and function Increase metoprolol to 37.5 mg twice a day Discontinue IV heparin. Begin Eliquis 5mg BID TSH checked and WNL Anticipate discharge home this afternoon Patient to follow-up post discharge with Dr. Viveros Nurse practitioner note has been reviewed by physician. Signing provider agrees with the documented findings, assessment, and plan of care. Past Medical History Past Medical History: Atrial Fibrillation, Chest Pain / Angina Additional Past Medical History / Comment(s): "eye pressure", cataracts History of Any Multi-Drug Resistant Organisms: None Reported Past Surgical History: Heart Catheterization With Stent Additional Past Surgical History / Comment(s): Detached retina x 2-lasered Past Anesthesia/Blood Transfusion Reactions: No Reported Reaction Date of Last Stent Placement:: september 2020 Past Psychological History: No Psychological Hx Reported Smoking Status: Former smoker Past Alcohol Use History: None Reported Past Drug Use History: None Reported - Past Family History Father Family Medical History: Myocardial Infarction ([place]) Medications and Allergies Home Medications Medication Instructions Recorded Confirmed Type Latanoprost/Pf [Latanoprost 0.005% 1 drop BOTH EYES HS 10/11/20 04/23/23 History Eye Drop] Atorvastatin [Lipitor] 80 mg PO DAILY #90 tab 10/13/20 04/23/23 Rx metFORMIN HCL ER [Glucophage XR] 1,500 mg PO W/SUPPER 08/29/21 04/23/23 History Brimonidine Tartrate [Alphagan P 1 drop LEFT EYE BID 04/23/23 04/23/23 History 0.2% Ophth Soln] Metoprolol Tartrate [Lopressor] 25 mg PO BID 04/23/23 04/23/23 History lisinopriL [Zestril] 5 mg PO DAILY 04/23/23 04/23/23 History Allergies Allergy/AdvReac Type Severity Reaction Status Date / Time Sulfa (Sulfonamide Allergy Unknown Verified 08/29/21 08:48 Antibiotics) Physical Exam Vitals: Vital Signs Temp Pulse Pulse Resp BP BP Pulse Ox 04/24/23 03:52 53 L 17 161/77 97 04/24/23 00:00 52 L 16 168/81 97 04/23/23 20:21 97.5 F L 55 L 17 172/77 99 04/23/23 19:52 53 L 18 149/69 98 04/23/23 19:00 97.8 F 55 L 17 134/67 04/23/23 18:00 66 16 135/72 04/23/23 17:00 75 14 160/97 04/23/23 16:55 75 20 160/97 98 04/23/23 16:20 135 H 04/23/23 16:19 128 H 18 158/58 04/23/23 16:04 98 F 138 H 20 184/94 94 L Intake and Output 04/23/23 04/24/23 04/24/23 22:59 06:59 14:59 Intake Total 71.619 Balance 71.619 Intake: Intake, IV Titration 71.619 Amount Heparin Sod,Pork in 0.45% 71.619 NaCl 25,000 unit In 0.45 % NaCl 1 250ml.bag @ 12 UNITS/KG/HR 9.362 mls/hr IV .Q24H [facility] Rx#: [id number] Oral 0 Other: # Voids 1 Weight 78.018 kg Results 04/24/23 08:38 04/23/23 16:29 Cardiac Enzymes 04/23/23 04/23/23 Range/Units 16:29 16:29 AST 27 (17-59) U/L Troponin I <0.012 (0.000-0.034) ng/mL Coagulation 04/23/23 04/23/23 Range/Units 16:29 22:30 PT 10.6 (9.0-12.0) sec APTT 24.6 38.7 H (22.0-30.0) sec CBC 04/23/23 Range/Units 16:29 WBC 8.3 (3.8-10.6) k/uL RBC 4.80 (4.30-5.90) m/uL Hgb 13.7 (13.0-17.5) gm/dL Hct 40.4 (39.0-53.0) % Plt Count 214 (150-450) k/uL Comprehensive Metabolic Panel 04/23/23 Range/Units 16:29 Sodium 140 (137-145) mmol/L Potassium 3.8 (3.5-5.1) mmol/L Chloride 107 (98-107) mmol/L Carbon Dioxide 25 (22-30) mmol/L BUN 16 (9-20) mg/dL Creatinine 0.88 (0.66-1.25) mg/dL Glucose 152 H (74-99) mg/dL Calcium 9.2 (8.4-10.2) mg/dL AST 27 (17-59) U/L ALT 30 (4-49) U/L Alkaline Phosphatase 63 (38-126) U/L Total Protein 6.4 (6.3-8.2) g/dL Albumin 3.9 (3.5-5.0) g/dL Current Medications Generic Name Dose Route Start Last Admin Trade Name Freq PRN Reason Stop Dose Admin Atorvastatin Calcium 80 mg 04/24/23 09:00 Atorvastatin 80 Mg Tab PO DAILY [facility] Brimonidine Tartrate 1 drops 04/24/23 00:00 04/24/23 00:48 Brimonidine Tartrate 0.2% Drops 5 Ml Btl LEFT EYE Not Given BID [facility] Heparin Sodium (Porcine) 0 unit 04/23/23 16:29 04/24/23 00:36 Heparin Sodium 1,000 Un/Ml (10ml Vl) IV 1,950 unit PER PROTOCOL PRN Administration Low PTT Protocol Heparin Sodium/Sodium Chloride 250 mls @ 9.362 mls/hr 04/23/23 16:30 04/24/23 00:36 25,000 unit/ Sodium Chloride IV 14 units/kg/hr .Q24H [facility] 10.923 mls/hr Titration Protocol 12 UNITS/KG/HR Latanoprost 1 drops 04/24/23 00:00 04/24/23 00:48 Latanoprost 0.005% Ophth Drops 2.5 Ml Btl BOTH EYES Not Given HS [facility] Lisinopril 5 mg 04/24/23 09:00 Lisinopril 5 Mg Tab PO DAILY [facility] Metformin HCl 750 mg 04/24/23 17:30 Metformin 500 Mg Tab PO BID-W/MEALS [facility] Metoprolol Tartrate 25 mg 04/23/23 21:00 04/23/23 21:16 Metoprolol Tartrate 25 Mg Tab PO 25 mg BID [facility] Administration Naloxone HCl 0.2 mg 04/23/23 17:28 Naloxone 0.4 Mg/Ml 1 Ml Vial IV Q2M PRN Opioid Reversal Intake and Output 04/23/23 04/24/23 04/24/23 22:59 06:59 14:59 Intake Total 71.619 Balance 71.619 Intake: Intake, IV Titration 71.619 Amount Heparin Sod,Pork in 0.45% 71.619 NaCl 25,000 unit In 0.45 % NaCl 1 250ml.bag @ 12 UNITS/KG/HR 9.362 mls/hr IV .Q24H [facility] Rx#: [id number] Oral 0 Other: # Voids 1 Weight 78.018 kg 04/23/23 16:29 04/23/23 16:29
[2023-04-24 10:23] LABS: ALT 27 U/L (4-49); AST 22 U/L (17-59); African American GFR (CKD) >90 (>60 ml/min/1.73 sqM); Albumin 4.1 g/dL (3.5-5.0); Alkaline Phosphatase 74 U/L (38-126); Anion Gap 6 mmol/L; Blood Urea Nitrogen 14 mg/dL (9-20); Calcium 9.2 mg/dL (8.4-10.2); Carbon Dioxide 30 mmol/L (22-30); Chloride 105 mmol/L (98-107); Glucose 91 mg/dL (74-99); Non-African American GFR(CKD) 84 (>60 ml/min/1.73 sqM); Potassium 3.6 mmol/L (3.5-5.1); Sodium 141 mmol/L (137-145); Total Protein 6.4 g/dL (6.3-8.2)
[2023-04-24 11:33] LABS: Glucose,Whole Blood 101 mg/dL (70-110)
[2023-04-24 11:43] VITALS: BP 167/79
--- NOTE | 2023-04-24 11:48 | CA ---
Transthoracic Echo Report Name: Henrique Saleem Age: 73 Gender: M : 1950 Exam Date: 04/24/2023 10:05 Exam Location: [facility] Ht (in): 72 Wt (lb): 172 Ordering Physician: Riya Crespo Attending/Referring Phys: [id number], Zak [employer] Dread Phillips Procedure CPT: Indications: LV function, new afib Cardiac Hx: Technical Quality: Contrast 1: Total Dose (mL): Contrast 2: Total Dose (mL): MEASUREMENTS (Male / Female) Normal Values 2D ECHO LV Diastolic Diameter PLAX 4.8 cm 4.2 - 5.9 / 3.9 - 5.3 cm LV Systolic Diameter PLAX 3.6 cm IVS Diastolic Thickness 1.0 cm 0.6 - 1.0 / 0.6 - 0.9 cm LVPW Diastolic Thickness 0.9 cm 0.6 - 1.0 / 0.6 - 0.9 cm LV Relative Wall Thickness 0.4 RV Internal Dim ED PLAX 3.2 cm LVOT Diameter 2.0 cm Aortic Root Diameter 3.3 cm LA Systolic Diameter LX 2.6 cm 3.0 - 4.0 / 2.7 - 3.8 cm LV Diastolic Volume MOD BP 81.6 cm??? 67 - 155 / 56 - 104 cm??? LV Systolic Volume MOD BP 35.2 cm??? 22 - 58 / 19 - 49 cm??? LV Ejection Fraction MOD BP 56.9 % >= 55 % LV Diastolic Volume MOD 4C 79.0 cm??? LV Systolic Volume MOD 4C 32.4 cm??? LV Ejection Fraction MOD 4C 59.0 % LV Diastolic Length 4C 7.8 cm LV Systolic Length 4C 6.4 cm LV Diastolic Volume MOD 2C 81.1 cm??? LV Systolic Volume MOD 2C 37.8 cm??? LV Ejection Fraction MOD 2C 53.3 % LV Diastolic Length 2C 7.5 cm LV Systolic Length 2C 6.3 cm LA Volume 57.3 cm??? 18 - 58 / 22 - 52 cm??? Ascending Aorta Diameter 2.8 cm DOPPLER AV Peak Velocity 133.7 cm/s AV Peak Gradient 7.1 mmHg LVOT Peak Velocity 91.6 cm/s LVOT Peak Gradient 3.4 mmHg AV Area Cont Eq pk 2.2 cm??? MV Peak Velocity 104.7 cm/s MV Peak Gradient 4.4 mmHg MV Mean Velocity 42.3 cm/s MV Mean Gradient 1.0 mmHg MV Velocity Time Integral 43.4 cm MR Peak Velocity 608.6 cm/s MR Peak Gradient 148.2 mmHg Mitral E Point Velocity 107.4 cm/s Mitral A Point Velocity 68.0 cm/s Mitral E to A Ratio 1.6 MV Deceleration Time 184.0 ms MV E' Velocity 6.7 cm/s Mitral E to MV E' Ratio 15.9 TR Peak Velocity 304.0 cm/s TR Peak Gradient 37.0 mmHg PV Peak Velocity 67.0 cm/s PV Peak Gradient 1.8 mmHg FINDINGS Left Ventricle Normal LV size and wall thickness. Left ventricular ejection fraction is estimated at 50-55 %. Right Ventricle Normal right ventricular size. RVSP= 41mmhg. Right Atrium Normal right atrial size. Left Atrium Normal left atrial size. Mitral Valve Mitral Valve thickening. Moderate MR. Aortic Valve Trileaflet aortic valve. AV thickening. No aortic valve stenosis or regurgitation. Tricuspid Valve Structurally normal tricuspid valve. Mild TR. Pulmonic Valve Pulmonic valve not well visualized. Mild PI. Pericardium Normal pericardium. Aorta Normal size aortic root and proximal ascending aorta. CONCLUSIONS Normal LV size and preserved systolic function. Moderate mitral and mild-to- moderate tricuspid regurgitation with mild pulmonary hypertension. No pericardial effusion. Possible PFO with Left to Right Atrial flow noted in subcostal views. Previewed by: Dr. Niru Goodman MD (Electronically Signed) Final Date: 24 April 2023 11:48
[2023-04-24 13:54] VITALS: PULSE 54
--- NOTE | 2023-04-24 14:27 | P.HPIM ---
History of Present Illness H&P Date: 04/24/23 History of present illness; patient is a 73-year-old gentleman with past medical history significant for coronary artery disease with previous stenting of the RCA, hypertension, hyperlipidemia, diabetes, and aortic stenosis who presented to the ER because of palpitations. Patient was seen in the ER for palpitations last week, EKG at that time showed patient to be in normal sinus rhythm. Patient was told to follow-up outpatient with cardiology and followed up with Dr. Viveros on Monday and was given an event monitor. Yesterday patient started noticing another episode of palpitations. Patient also noticed intermittent chest pressure associated with this palpitation. Denies any shortness of breath. Denies any complain of swelling of feet denies any orthopnea or PND .Because of this worsening palpitation, patient came back to the ER and was found to be in A. fib with RVR. Initial lab work done in the ER showed WBC 8.3, hemoglobin 13.7, platelet count 214, PT 10.6, sodium 140, potassium 3.8, chloride 107, BUN 16, creatinine 0.88, magnesium 1.6, troponin 0.012 patient was admitted to medicine service REVIEW OF SYSTEMS: CONSTITUTIONAL: No fever, no malaise, no fatigue. HEENT: No recent visual problems or hearing problems. Denied any sore throat. CARDIOVASCULAR: As mentioned in HPI PULMONARY: No shortness of breath, no cough, no hemoptysis. GASTROINTESTINAL: No diarrhea, no nausea, no vomiting, no abdominal pain. NEUROLOGICAL: No headaches, no weakness, no numbness. HEMATOLOGICAL: Denies any bleeding or petechiae. GENITOURINARY: Denies any burning micturition, frequency, or urgency. MUSCULOSKELETAL/RHEUMATOLOGICAL: Denies any joint pain, swelling, or any muscle pain. ENDOCRINE: Denies any polyuria or polydipsia. The rest of the 14-point review of systems is negative. PHYSICAL EXAMINATION: GENERAL: The patient is alert and oriented x3, not in any acute distress. Well developed, well nourished. HEENT: Pupils are round and equally reacting to light. EOMI. No scleral icterus. No conjunctival pallor. Normocephalic, atraumatic. No pharyngeal erythema. No thyromegaly. CARDIOVASCULAR: S1 and S2 present. No murmurs, rubs, or gallops. PULMONARY: Chest is clear to auscultation, no wheezing or crackles. ABDOMEN: Soft, nontender, nondistended, normoactive bowel sounds. No palpable organomegaly. MUSCULOSKELETAL: No joint swelling or deformity. EXTREMITIES: No cyanosis, clubbing, or pedal edema. NEUROLOGICAL: Gross neurological examination did not reveal any focal deficits. SKIN: No rashes. Assessment and plan Palpitations Atrial fibrillation with RVR Coronary artery disease with stenting of the RCA, September 2020 Hypertension Hyperlipidemia Diabetes Valvular heart disease Monitor vital signs Monitor CBC Monitor CMP Continue telemetry monitoring Trend troponins. Ordered 2-D echo Resume home meds Consult cardiology Labs and medication were reviewed.. Continue same treatment. Continue with symptomatic treatment. Resume home medication. Monitor labs and vitals. DVT and GI prophylaxis. Further recommendations as per clinical course of the patient Dictation was produced using [employer] dictation software. please excuse any grammatical, word or spelling errors. Past Medical History Past Medical History: Atrial Fibrillation, Chest Pain / Angina Additional Past Medical History / Comment(s): "eye pressure", cataracts History of Any Multi-Drug Resistant Organisms: None Reported Past Surgical History: Heart Catheterization With Stent Additional Past Surgical History / Comment(s): Detached retina x 2-lasered Past Anesthesia/Blood Transfusion Reactions: No Reported Reaction Date of Last Stent Placement:: september 2020 Past Psychological History: No Psychological Hx Reported Smoking Status: Former smoker Past Alcohol Use History: None Reported Past Drug Use History: None Reported - Past Family History Father Family Medical History: Myocardial Infarction ([place]) Medications and Allergies Home Medications Medication Instructions Recorded Confirmed Type Latanoprost/Pf [Latanoprost 0.005% 1 drop BOTH EYES HS 10/11/20 04/23/23 History Eye Drop] Atorvastatin [Lipitor] 80 mg PO DAILY #90 tab 10/13/20 04/23/23 Rx metFORMIN HCL ER [Glucophage XR] 1,500 mg PO W/SUPPER 08/29/21 04/23/23 History Brimonidine Tartrate [Alphagan P 1 drop LEFT EYE BID 04/23/23 04/23/23 History 0.2% Ophth Soln] Metoprolol Tartrate [Lopressor] 25 mg PO BID 04/23/23 04/23/23 History lisinopriL [Zestril] 5 mg PO DAILY 04/23/23 04/23/23 History Allergies Allergy/AdvReac Type Severity Reaction Status Date / Time Sulfa (Sulfonamide Allergy Unknown Verified 08/29/21 08:48 Antibiotics) Physical Exam Vitals: Vital Signs Temp Pulse Pulse Resp BP BP Pulse Ox 04/24/23 08:23 58 L 04/24/23 08:08 97.9 F 56 L 15 172/77 95 04/24/23 03:52 53 L 17 161/77 97 04/24/23 00:00 52 L 16 168/81 97 04/23/23 20:21 97.5 F L 55 L 17 172/77 99 04/23/23 19:52 53 L 18 149/69 98 04/23/23 19:00 97.8 F 55 L 17 134/67 04/23/23 18:00 66 16 135/72 04/23/23 17:00 75 14 160/97 04/23/23 16:55 75 20 160/97 98 04/23/23 16:20 135 H 04/23/23 16:19 128 H 18 158/58 04/23/23 16:04 98 F 138 H 20 184/94 94 L Intake and Output 04/23/23 04/24/23 04/24/23 22:59 06:59 14:59 Intake Total 71.619 Balance 71.619 Intake: Intake, IV Titration 71.619 Amount Heparin Sod,Pork in 0.45% 71.619 NaCl 25,000 unit In 0.45 % NaCl 1 250ml.bag @ 12 UNITS/KG/HR 9.362 mls/hr IV .Q24H [facility] Rx#: [id number] Oral 0 Other: Voiding Method Toilet # Voids 1 2 Weight 78.018 kg Results CBC & Chem 7: 04/24/23 08:38 04/24/23 08:38 Labs: Abnormal Lab Results - Last 24 Hours (Table) 04/23/23 04/23/23 Range/Units 16:29 22:30 APTT 38.7 H (22.0-30.0) sec Glucose 152 H (74-99) mg/dL Thrombosis Risk Factor Assmnt - Choose All That Apply Any of the Below Risk Factors Present?: No Other Risk Factors: No Other congenital or acquired thrombophilia - If yes, enter type in comment: No Thrombosis Risk Factor Assessment Level: Very Low Risk
--- NOTE | 2023-04-24 14:30 | P.DS ---
Providers Date of admission: 04/23/23 17:28 Expected date of discharge: 04/24/23 Attending physician: Anh Martell Consults: 04/23/23 17:28 Consult Physician Urgent Consulting Provider: [facility] Consult Reason/Comments: acute chest pain, new onset afib with rvr Do you want consulting provider notified?: Yes Primary care physician: Kevin Guallpa [facility] Course: Discharge diagnoses; Palpitations Atrial fibrillation with RVR Coronary artery disease with stenting of the RCA, September 2020 Hypertension Hyperlipidemia Diabetes Valvular heart disease Hospital course; patient is a 73-year-old gentleman with past medical history significant for coronary artery disease with previous stenting of the RCA, hypertension, hyperlipidemia, diabetes, and aortic stenosis who presented to the ER because of palpitations. Patient was seen in the ER for palpitations last week, EKG at that time showed patient to be in normal sinus rhythm. Patient was told to follow-up outpatient with cardiology and followed up with Dr. Viveros on Monday and was given an event monitor. Yesterday patient started noticing another episode of palpitations. Patient also noticed intermittent chest pressure associated with this palpitation. Denies any shortness of breath. Denies any complain of swelling of feet denies any orthopnea or PND .Because of this worsening palpitation, patient came back to the ER and was found to be in A. fib with RVR. Initial lab work done in the ER showed WBC 8.3, hemoglobin 13.7, platelet count 214, PT 10.6, sodium 140, potassium 3.8, chloride 107, BUN 16, creatinine 0.88, magnesium 1.6, troponin 0.012 patient was admitted to medicine service Patient was seen by cardiology, ordered 2-D echo. Recommended increasing dose of Lopressor 37.5 mg twice a day, started on Eliquis. Echo reviewed by cardiology, cleared the patient for discharge PHYSICAL EXAMINATION: GENERAL: The patient is alert and oriented x3, not in any acute distress. Well developed, well nourished. HEENT: Pupils are round and equally reacting to light. EOMI. No scleral icterus. No conjunctival pallor. Normocephalic, atraumatic. No pharyngeal erythema. No thyromegaly. CARDIOVASCULAR: S1 and S2 present. No murmurs, rubs, or gallops. PULMONARY: Chest is clear to auscultation, no wheezing or crackles. ABDOMEN: Soft, nontender, nondistended, normoactive bowel sounds. No palpable organomegaly. MUSCULOSKELETAL: No joint swelling or deformity. EXTREMITIES: No cyanosis, clubbing, or pedal edema. NEUROLOGICAL: Gross neurological examination did not reveal any focal deficits. SKIN: No rashes. Dictation was produced using [employer] dictation software. please excuse any g rammatical, word or spelling errors. Patient Condition at Discharge: Stable Plan - Discharge Summary Discharge Rx Participant: No New Discharge Prescriptions: New Apixaban [Eliquis] 5 mg PO BID #60 tab Metoprolol Tartrate [Lopressor] 37.5 mg PO BID #30 tab Continue Latanoprost/Pf [Latanoprost 0.005% Eye Drop] 1 drop BOTH EYES HS Atorvastatin [Lipitor] 80 mg PO DAILY #90 tab Brimonidine Tartrate [Alphagan P 0.2% Ophth Soln] 1 drop LEFT EYE BID metFORMIN HCL ER [Glucophage XR] 1,500 mg PO W/SUPPER lisinopriL [Zestril] 5 mg PO DAILY Discontinued Metoprolol Tartrate [Lopressor] 25 mg PO BID Discharge Medication List Latanoprost/Pf [Latanoprost 0.005% Eye Drop] 1 drop BOTH EYES HS 10/11/20 [History] Atorvastatin [Lipitor] 80 mg PO DAILY #90 tab 10/13/20 [Rx] metFORMIN HCL ER [Glucophage XR] 1,500 mg PO W/SUPPER 08/29/21 [History] Brimonidine Tartrate [Alphagan P 0.2% Ophth Soln] 1 drop LEFT EYE BID 04/23/23 [History] lisinopriL [Zestril] 5 mg PO DAILY 04/23/23 [History] Apixaban [Eliquis] 5 mg PO BID #60 tab 04/24/23 [Rx] Metoprolol Tartrate [Lopressor] 37.5 mg PO BID #30 tab 04/24/23 [Rx] Follow up Appointment(s)/Referral(s): Kevin Darling III, MD [Primary Care Provider] - 1-2 days Noel Viveros MD [STAFF PHYSICIAN] - 1 Week Discharge Disposition: HOME SELF-CARE
[2023-04-24] MEDS ORDERED: metFORMIN 500 MG TAB PO SCH (17:30)
== END 2023-04-24 15:01 | disposition home or self-care (01) ==
LOC: EC 15:58 → 3SCARD 17:28
PROVIDERS: ADMIT Hospitalist; ATTEND Hospitalist
DX: I48.0 Paroxysmal atrial fibrillation (principal); I25.10 Atherosclerotic heart disease of native coronary artery without angina pectoris; I08.3 Combined rheumatic disorders of mitral, aortic and tricuspid valves; E11.9 Type 2 diabetes mellitus without complications; R00.1 Bradycardia, unspecified; I48.92 Unspecified atrial flutter; I27.20 Pulmonary hypertension, unspecified; H26.9 Unspecified cataract; H57.89 Other specified disorders of eye and adnexa; E78.5 Hyperlipidemia, unspecified; Z79.84 Long term (current) use of oral hypoglycemic drugs; Z79.899 Other long term (current) drug therapy; Z88.2 Allergy status to sulfonamides; Z87.891 Personal history of nicotine dependence; Z86.69 Personal history of other diseases of the nervous system and sense organs; Z95.5 Presence of coronary angioplasty implant and graft; Z98.890 Other specified postprocedural states; Z82.49 Family history of ischemic heart disease and other diseases of the circulatory system
CPT/HCPCS: 96376 ×2; 96366 ×2; 96365; 99291; 36415; 93005; 93306; 80053 ×2; 84443; 83735; 84484; 85025 ×2; 85610 ×2; 85730; G0378 ×2; J1644 ×3

== ENCOUNTER 2023-05-29 02:58 | Emergency (ER) | payer MEDICARE ==
[2023-05-29 03:07] VITALS: RESP 18; TEMP 98.9
[2023-05-29] MEDS ORDERED: hydrALAZINE HCL 20 MG/ML 1 ML VIAL IVP STA (04:19)
--- NOTE | 2023-05-29 04:22 | ED ---
Extremity Problem HPI - General Chief complaint: Extremity Problem,Nontraumatic Stated complaint: Left leg aches Time Seen by Provider: 05/29/23 03:11 Source: patient Mode of arrival: ambulatory - History of Present Illness Initial comments: 73-year-old male with past medical history significant for A. fib on Eliquis presents to the ED with a chief complaint of leg pain. Patient states for the past week has had pain of his hip radiating down to his lower leg. She states pain is crampy in nature and intermittent. Patient states pain is often provoked by leg being at rest however improved with movement. Denies weakness or numbness. Denies any recent injury. Denies chest pain or shortness of breath. No other complaints. - Related Data Home Medications Medication Instructions Recorded Confirmed Latanoprost/Pf [Latanoprost 0.005% 1 drop BOTH EYES HS 10/11/20 04/23/23 Eye Drop] metFORMIN HCL ER [Glucophage XR] 1,500 mg PO W/SUPPER 08/29/21 04/23/23 Brimonidine Tartrate [Alphagan P 1 drop LEFT EYE BID 04/23/23 04/23/23 0.2% Ophth Soln] lisinopriL [Zestril] 5 mg PO DAILY 04/23/23 04/23/23 Previous Rx's Medication Instructions Recorded Atorvastatin [Lipitor] 80 mg PO DAILY #90 tab 10/13/20 Apixaban [Eliquis] 5 mg PO BID #60 tab 04/24/23 Metoprolol Tartrate [Lopressor] 37.5 mg PO BID #30 tab 04/24/23 Allergies Allergy/AdvReac Type Severity Reaction Status Date / Time Sulfa (Sulfonamide Allergy Unknown Verified 05/29/23 03:07 Antibiotics) Review of Systems ROS Statement: Those systems with pertinent positive or pertinent negative responses have been documented in the HPI. ROS Other: All systems not noted in ROS Statement are negative. Past Medical History Past Medical History: Atrial Fibrillation, Chest Pain / Angina, Hypertension Additional Past Medical History / Comment(s): "eye pressure", cataracts History of Any Multi-Drug Resistant Organisms: None Reported Past Surgical History: Heart Catheterization With Stent Additional Past Surgical History / Comment(s): Detached retina x 2-lasered Past Anesthesia/Blood Transfusion Reactions: No Reported Reaction Date of Last Stent Placement:: september 2020 Past Psychological History: No Psychological Hx Reported Smoking Status: Former smoker Past Alcohol Use History: None Reported Past Drug Use History: None Reported - Past Family History Father Family Medical History: Myocardial Infarction ([place]) General Exam Limitations: no limitations General appearance: alert, in no apparent distress Neck exam: Present: normal inspection Respiratory exam: Present: normal lung sounds bilaterally Cardiovascular Exam: Present: regular rate, normal rhythm GI/Abdominal exam: Present: soft Extremities exam: Present: normal inspection, other (Full active range of motion of left lower extremity. DP/PT pulses 2+. Strength and sensation intact.) Neurological exam: Present: alert, oriented X3 Skin exam: Present: warm, dry Course Vital Signs 05/29/23 05/29/23 05/29/23 03:01 04:17 05:18 Temperature 98.9 F Pulse Rate 65 67 75 Respiratory 18 Rate Blood Pressure 204/82 208/80 161/77 O2 Sat by Pulse 99 97 Oximetry - Reevaluation(s) Reevaluation #1: provided hydralazine at 4:38 AM. Patient reevaluated and had improvement of his blood pressure to 160s systolic. 05/29/23 05:19 Medical Decision Making - Medical Decision Making Was pt. sent in by a medical professional or institution (, PA, CATALOG LIBRARIAN, urgent care, hospital, or [facility]...) When possible be specific @ -No Did you speak to anyone other than the patient for history (EMS, parent, family, police, friend...)? What history was obtained from this source @ -No Did you review nursing and triage notes (agree or disagree)? Why? @ -I reviewed and agree with nursing and triage notes Were old charts reviewed (outside hosp., previous admission, EMS record, old EKG, old radiological studies, urgent care reports/EKG's, [facility] records)? Report findings @ -No old charts were reviewed Differential Diagnosis (chest pain, altered mental status, abdominal pain women, abdominal pain men, vaginal bleeding, weakness, fever, dyspnea, syncope, headache, dizziness, GI bleed, back pain, seizure, CVA, palpatations, mental health, musculoskeletal)? @ -Differential Musculoskeletal Muscular strain, contusion, ligament sprain, fracture, arthritis, septic arthritis, bursitis, cellulitis, muscle spasm, nerve compression, DVT, arterial occlusion, herpes zoster, electrolyte abnormality, tumor.... This is not meant to be in all inclusive list EKG interpreted by me (3pts min.). @ -As above X-rays interpreted by me (1pt min.). @ -None done CT interpreted by me (1pt min.). @ -None done U/S interpreted by me (1pt. min.). @ -None done What testing was considered but not performed or refused? (CT, X-rays, U/S, labs)? Why? @ -None What meds were considered but not given or refused? Why? @ -None Did you discuss the management of the patient with other professionals (professionals i.e. Dr., PA, CATALOG LIBRARIAN, lab, RT, psych nurse, social services manager, criminology teacher, teacher, navigating officer, business case analyst)? Give summary @ -No Was smoking cessation discussed for >3mins.? @ -No Was critical care preformed (if so, how long)? @ -No Were there social determinants of health that impacted care today? How? (Homelessness, low income, unemployed, alcoholism, drug addiction, transportation, low edu. Level, literacy, decrease access to med. care, nursing home, rehab)? @ -No Was there de-escalation of care discussed even if they declined (Discuss DNR or withdrawal of care, Hospice)? DNR status @ -No What co-morbidities impacted this encounter? (DM, HTN, Smoking, COPD, CAD, Cancer, CVA, ARF, Chemo, Hep., AIDS, mental health diagnosis, sleep apnea, morbid obesity)? @ -Hypertension, A. fib Was patient admitted / discharged? Hospital course, mention meds given and route, prescriptions, significant lab abnormalities, going to OR and other pertinent info. @ -Discharge 73-year-old male with past medical history significant for A. fib on Eliquis presents to ED with a chief complaint of hip pain. Patient states for the past week he's had pain of his left hip going all the way down to his left lower leg. Patient states that the areas pain affects are random. States sometimes pain behind his knee. Sometimes pain in his thigh. Sometimes affects his buttock. States that when he is at rest this often provokes pain and pain is improved with activity. Ultrasound of the left lower extremity showed no evidence of DVT. X-ray of the hip and femur show no acute findings. Incidentally, patient hypertensive in the 200s systolic. Denies chest pain, shortness of breath, headache. EKG here showed a normal sinus rhythm without acute ST or T-wave changes. Laboratory studies including CBC, chemistry panel, troponin unremarkable. Patient was given 20 mg of hydralazine with improvement of his blood pressure to the 160s systolic. At this time, patient stable for discharge. Discharged home in discussed return precautions with patient and family who verbalizes agreement. Undiagnosed new problem with uncertain prognosis? @ -No Drug Therapy requiring intensive monitoring for toxicity (Heparin, Nitro, Insulin, Cardizem)? @ -No Were any procedures done? @ -No Diagnosis/symptom? @ -Leg pain, hypertension Acute, or Chronic, or Acute on Chronic? @ -Acute Uncomplicated (without systemic symptoms) or Complicated (systemic symptoms)? @ -Uncomplicated Side effects of treatment? @ -No Exacerbation, Progression, or Severe Exacerbation? @ -No Poses a threat to life or bodily function? How? (Chest pain, [place], [place], pneumonia, PE, COPD, DKA, ARF, appy, cholecystitis, CVA, Diverticulitis, Homicidal, Suicidal, threat to staff... and all critical care pts) @ -No - Lab Data Result diagrams: 05/29/23 04:24 05/29/23 04:24 Lab Results 05/29/23 05/29/23 05/29/23 Range/Units 04:24 04:24 04:24 WBC 9.3 (3.8-10.6) k/uL RBC 5.09 (4.30-5.90) m/uL Hgb 13.8 (13.0-17.5) gm/dL Hct 43.1 (39.0-53.0) % MCV 84.7 (80.0-100.0) fL MCH 27.0 (25.0-35.0) pg MCHC 31.9 (31.0-37.0) g/dL RDW 13.2 (11.5-15.5) % Plt Count 212 (150-450) k/uL MPV 7.9 Neutrophils % 73 % Lymphocytes % 18 % Monocytes % 6 % Eosinophils % 2 % Basophils % 0 % Neutrophils # 6.8 (1.3-7.7) k/uL Lymphocytes # 1.6 (1.0-4.8) k/uL Monocytes # 0.5 (0-1.0) k/uL Eosinophils # 0.2 (0-0.7) k/uL Basophils # 0.0 (0-0.2) k/uL Sodium 142 (137-145) mmol/L Potassium 4.3 (3.5-5.1) mmol/L Chloride 107 (98-107) mmol/L Carbon Dioxide 30 (22-30) mmol/L Anion Gap 5 mmol/L BUN 18 (9-20) mg/dL Creatinine 0.96 (0.66-1.25) mg/dL Est GFR (CKD-EPI)AfAm 90 (>60 ml/min/1.73 sqM) Est GFR (CKD-EPI)NonAf 78 (>60 ml/min/1.73 sqM) Glucose 106 H (74-99) mg/dL Calcium 9.3 (8.4-10.2) mg/dL Total Bilirubin 0.8 (0.2-1.3) mg/dL AST 17 (17-59) U/L ALT 16 (4-49) U/L Alkaline Phosphatase 59 (38-126) U/L Troponin I (0.000-0.034) ng/mL Total Protein 6.5 (6.3-8.2) g/dL Albumin 4.1 (3.5-5.0) g/dL Urine Color Colorless Urine Appearance Clear (Clear) Urine pH 5.0 (5.0-8.0) Ur Specific [place] 1.011 (1.001-1.035) Urine Protein Negative (Negative) Urine Glucose (UA) Negative (Negative) Urine Ketones Negative (Negative) Urine Blood Negative (Negative) Urine Nitrite Negative (Negative) Urine Bilirubin Negative (Negative) Urine Urobilinogen <2.0 (<2.0) mg/dL Ur Leukocyte Esterase Negative (Negative) 05/29/23 Range/Units 04:24 WBC (3.8-10.6) k/uL RBC (4.30-5.90) m/uL Hgb (13.0-17.5) gm/dL Hct (39.0-53.0) % MCV (80.0-100.0) fL MCH (25.0-35.0) pg MCHC (31.0-37.0) g/dL RDW (11.5-15.5) % Plt Count (150-450) k/uL MPV Neutrophils % % Lymphocytes % % Monocytes % % Eosinophils % % Basophils % % Neutrophils # (1.3-7.7) k/uL Lymphocytes # (1.0-4.8) k/uL Monocytes # (0-1.0) k/uL Eosinophils # (0-0.7) k/uL Basophils # (0-0.2) k/uL Sodium (137-145) mmol/L Potassium (3.5-5.1) mmol/L Chloride (98-107) mmol/L Carbon Dioxide (22-30) mmol/L Anion Gap mmol/L BUN (9-20) mg/dL Creatinine (0.66-1.25) mg/dL Est GFR (CKD-EPI)AfAm (>60 ml/min/1.73 sqM) Est GFR (CKD-EPI)NonAf (>60 ml/min/1.73 sqM) Glucose (74-99) mg/dL Calcium (8.4-10.2) mg/dL Total Bilirubin (0.2-1.3) mg/dL AST (17-59) U/L ALT (4-49) U/L Alkaline Phosphatase (38-126) U/L Troponin I <0.012 (0.000-0.034) ng/mL Total Protein (6.3-8.2) g/dL Albumin (3.5-5.0) g/dL Urine Color Urine Appearance (Clear) Urine pH (5.0-8.0) Ur Specific [place] (1.001-1.035) Urine Protein (Negative) Urine Glucose (UA) (Negative) Urine Ketones (Negative) Urine Blood (Negative) Urine Nitrite (Negative) Urine Bilirubin (Negative) Urine Urobilinogen (<2.0) mg/dL Ur Leukocyte Esterase (Negative) - EKG Data EKG Comments: EKG shows a sinus rhythm without acute ST or T-wave changes. Disposition Clinical Impression: Leg pain, Hypertension Disposition: HOME SELF-CARE Condition: Good Instructions (If sedation given, give patient instructions): Leg Pain (ED), Hypertension (ED) Additional Instructions: Please return to the Emergency Department if symptoms worsen or any other concerns. Follow up with PCP. Is patient prescribed a controlled substance at d/c from ED?: No Referrals: Yvan Conway MD [Primary Care Provider] - 1-2 days Time of Disposition: 06:00
[2023-05-29 05:00] LABS: African American GFR (CKD) 90 (>60 ml/min/1.73 sqM); Albumin 4.1 g/dL (3.5-5.0); Carbon Dioxide 30 mmol/L (22-30); Chloride 107 mmol/L (98-107); Non-African American GFR(CKD) 78 (>60 ml/min/1.73 sqM); Total Protein 6.5 g/dL (6.3-8.2)
[2023-05-29 05:03] LABS: ALT 16 U/L (4-49); AST 17 U/L (17-59); Alkaline Phosphatase 59 U/L (38-126); Anion Gap 5 mmol/L; Blood Urea Nitrogen 18 mg/dL (9-20); Calcium 9.3 mg/dL (8.4-10.2); Glucose 106 mg/dL (74-99); Potassium 4.3 mmol/L (3.5-5.1); Sodium 142 mmol/L (137-145); Total Bilirubin 0.8 mg/dL (0.2-1.3)
[2023-05-29 05:12] LABS: Basophils % (A) 0 %; Eosinophils # (A) 0.2 k/uL (0-0.7); Eosinophils % (A) 2 %; HCT 43.1 % (39.0-53.0); HGB 13.8 gm/dL (13.0-17.5); Lymphocytes # (A) 1.6 k/uL (1.0-4.8); Lymphocytes % (A) 18 %; MCHC 31.9 g/dL (31.0-37.0); MCV 84.7 fL (80.0-100.0); Mean Platelet Volume 7.9; Monocytes # (A) 0.5 k/uL (0-1.0); Monocytes % (A) 6 %; Neutrophils # (A) 6.8 k/uL (1.3-7.7); Neutrophils % (A) 73 %; Platelet Count 212 k/uL (150-450); RBC 5.09 m/uL (4.30-5.90); RDW 13.2 % (11.5-15.5); WBC 9.3 k/uL (3.8-10.6)
--- NOTE | 2023-05-29 05:41 | XR ---
EXAM: SINGLE VIEW OF THE PELVIS AND2 VIEWS OF THE LEFT FEMUR CLINICAL HISTORY: ITS.REASON XR Reason: l leg pain TECHNIQUE: Single view of the pelvis and 2 views of the left femur were obtained. COMPARISON: No relevant prior studies available. IMPRESSION: 1. No evidence of acutely displaced fracture or dislocation within the pelvis or left femur. If there is further concern, consider cross- sectional imaging. 2. Mildly limited evaluation of the pelvis due to incomplete evaluation of the iliac crests. In addition, values of the sacrum is limited by overlying pubic bones and bowel gas. Consider cross-sectional imaging if there is further concern.
[2023-05-29 05:45] LABS: Appearance,Urine Clear (Clear); Bilirubin,Urine Negative (Negative); Blood,Urine Negative (Negative); Color,Urine Colorless; Glucose,Urine (UA) Negative (Negative); Ketones,Urine Negative (Negative); Leukocyte Esterase,Urine Negative (Negative); Nitrite,Urine Negative (Negative); Protein,Urine Negative (Negative); Specific Gravity,Urine 1.011 (1.001-1.035); Urobilinogen,Urine <2.0 mg/dL (<2.0)
--- NOTE | 2023-05-29 05:45 | US ---
EXAM: US Duplex Left Lower Extremity Veins CLINICAL HISTORY: ITS.REASON US Reason: r/o DVT TECHNIQUE: Real-time duplex ultrasound scan of the left lower extremity veins integrating B-mode two-dimensional vascular structure, Doppler spectral analysis, color flow Doppler imaging and compression. COMPARISON: No relevant prior studies available. FINDINGS: Deep veins: Unremarkable. No DVT in the visualized common femoral, femoral, proximal deep femoral or popliteal veins. The veins demonstrate normal color flow, are normally compressible, with normal phasic flow and/or augmentation response. Superficial veins: Unremarkable. No thrombus in the visualized great saphenous vein. Soft tissues: No acute findings. No popliteal cyst. IMPRESSION: Normal left lower extremity duplex venous ultrasound.
[2023-05-29 06:12] VITALS: BP 133/67; PULSE 70
== END 2023-05-29 06:47 | disposition home or self-care (01) ==
LOC: EC 02:58
DX: M79.605 Pain in left leg (principal); I48.91 Unspecified atrial fibrillation; I10 Essential (primary) hypertension; Z87.891 Personal history of nicotine dependence; Z79.01 Long term (current) use of anticoagulants; Z79.899 Other long term (current) drug therapy; Z88.2 Allergy status to sulfonamides
CPT/HCPCS: 36415; 93005; 80053; 84484; 85025; 81003; 72170; 73552; 93971; 99284; 96374; J0360

== ENCOUNTER → 2023-05-30 | Outpatient (CLI) | payer MEDICARE ==
[2023-05-30 11:30] LABS: Basophils # (A) 0.06 X 10*3/uL (0.00-0.10); Basophils % (A) 0.8 %; Eosinophils # (A) 0.17 X 10*3/uL (0.04-0.35); Eosinophils % (A) 2.3 %; HCT 42.5 % (39.6-50.0); HGB 13.7 d/dL (13.0-17.0); Lymphocytes # (A) 1.73 X 10*3/uL (0.90-5.00); MCHC 32.2 d/dL (32.0-37.0); MCV 83.8 FL (80.0-97.0); Mean Platelet Volume 10.5 FL (9.5-12.2); Monocytes # (A) 0.54 X 10*3/uL (0.20-1.00); Monocytes % (A) 7.2 %; NRBC Per 100 WBC 0 X 10*3/uL (0.00-0.01); Neutrophils # (A) 4.99 X 10*3/uL (1.80-7.70); Neutrophils % (A) 66.4 %; Platelet Count 241 X 10*3/uL (140-440); RBC 5.07 X 10*6/uL (4.40-5.60); RDW 13.2 % (11.5-14.5); WBC 7.51 X 10*3/uL (4.50-10.00)
[2023-05-30 13:36] LABS: Chol/HDL Ratio 2.72 Ratio; Magnesium 1.6 mg/dL (1.5-2.4)
[2023-05-30 13:37] LABS: ALT 13 U/L (10-49); AST 13 U/L (14-35); Albumin 4.4 d/dL (3.8-4.9); Albumin/Globulin Ratio 2.32 Ratio (1.60-3.17); Alkaline Phosphatase 63 U/L (41-126); BUN/Creat Ratio 9.55 Ratio (12.00-20.00); Blood Urea Nitrogen 10.5 mg/dL (9.0-27.0); Calcium 9.5 mg/dL (8.7-10.3); Carbon Dioxide 27.4 mmol/L (21.6-31.8); Chloride 106 mmol/L (96-109); Globulin 1.9 d/dL (1.6-3.3); Glucose 109 mg/dL (70-110); LDL Cholesterol,Calculated 47.1 mg/dL (0.0-131.0); Potassium 4.1 mmol/L (3.5-5.5); Sodium 143 mmol/L (135-145); Total Bilirubin 0.7 mg/dL (0.3-1.2); Total Protein 6.3 d/dL (6.2-8.2)
== END | disposition home or self-care (01) ==
LOC: LABWHC1 07:52
PROVIDERS: ATTEND Internal Medicine
DX: E11.9 Type 2 diabetes mellitus without complications (principal); I25.10 Atherosclerotic heart disease of native coronary artery without angina pectoris
CPT/HCPCS: 36415; 80053; 80061; 83036; 83735; 84443; 85025

== ENCOUNTER 2023-09-10 11:55 | Emergency (ER) | payer MEDICARE ==
[2023-09-10 12:10] VITALS: TEMP 98.6
[2023-09-10] MEDS ORDERED: SODIUM CHLORIDE 0.9% 1,000 ML IV STA (12:16)
--- NOTE | 2023-09-10 13:05 | ED ---
Dizziness HPI - General Chief Complaint: Syncope Stated Complaint: close to Syncope Time Seen by Provider: 09/10/23 12:01 Source: patient, RN notes reviewed Mode of arrival: wheelchair Limitations: no limitations - History of Present Illness Initial Comments: 73-year-old male presents emergency Department with chief complaint near syncopal event. Patient was upstairs visiting his was COVID-19 positive. Patient states he got up to go out of the room to talk to his other family when he became very lightheaded, dizzy felt warm and flushed. Patient states he felt dizzy in a pass out. He never loss conscious denies any chest pain or shortness breath headache focal weakness. He states he is a symptomatically currently. He does have mild cough states that last few days is concerned that he may have COVID-19. - Related Data Home Medications Medication Instructions Recorded Confirmed Latanoprost/Pf [Latanoprost 0.005% 1 drop BOTH EYES HS 10/11/20 04/23/23 Eye Drop] metFORMIN HCL ER [Glucophage XR] 1,500 mg PO W/SUPPER 08/29/21 04/23/23 Brimonidine Tartrate [Alphagan P 1 drop LEFT EYE BID 04/23/23 04/23/23 0.2% Ophth Soln] lisinopriL [Zestril] 5 mg PO DAILY 04/23/23 04/23/23 Previous Rx's Medication Instructions Recorded Atorvastatin [Lipitor] 80 mg PO DAILY #90 tab 10/13/20 Apixaban [Eliquis] 5 mg PO BID #60 tab 04/24/23 Metoprolol Tartrate [Lopressor] 37.5 mg PO BID #30 tab 04/24/23 Metoprolol Tartrate [Lopressor] 37.5 mg PO BID 10 Days #30 tablet 06/13/23 Allergies Allergy/AdvReac Type Severity Reaction Status Date / Time Sulfa (Sulfonamide Allergy Unknown Verified 09/10/23 12:00 Antibiotics) Review of Systems ROS Statement: Those systems with pertinent positive or pertinent negative responses have been documented in the HPI. ROS Other: All systems not noted in ROS Statement are negative. Past Medical History Past Medical History: Atrial Fibrillation, Chest Pain / Angina, Hypertension Additional Past Medical History / Comment(s): "eye pressure", cataracts History of Any Multi-Drug Resistant Organisms: None Reported Past Surgical History: Heart Catheterization With Stent Additional Past Surgical History / Comment(s): Detached retina x 2-lasered Past Anesthesia/Blood Transfusion Reactions: No Reported Reaction Date of Last Stent Placement:: september 2020 Past Psychological History: No Psychological Hx Reported Smoking Status: Former smoker Past Alcohol Use History: None Reported Past Drug Use History: None Reported - Past Family History Father Family Medical History: Myocardial Infarction ([place]) General Exam Limitations: no limitations General appearance: alert, in no apparent distress Head exam: Present: atraumatic, normocephalic, normal inspection Eye exam: Present: normal appearance, PERRL, EOMI. Absent: scleral icterus, conjunctival injection, periorbital swelling ENT exam: Present: normal exam, normal oropharynx, mucous membranes moist Neck exam: Present: normal inspection, full ROM. Absent: tenderness, meningismus, lymphadenopathy Respiratory exam: Present: normal lung sounds bilaterally. Absent: respiratory distress, wheezes, rales, rhonchi, stridor Cardiovascular Exam: Present: regular rate, normal rhythm, normal heart sounds. Absent: systolic murmur, diastolic murmur, rubs, gallop, clicks Extremities exam: Present: normal inspection, full ROM, normal capillary refill. Absent: tenderness, pedal edema, joint swelling, calf tenderness Neurological exam: Present: alert, oriented X3, CN II-XII intact, reflexes normal. Absent: motor sensory deficit Course Vital Signs 09/10/23 11:58 Temperature 98.6 F Pulse Rate 60 Respiratory 20 Rate Blood Pressure 137/80 O2 Sat by Pulse 99 Oximetry EKG Findings - EKG Comments: EKG Findings:: EKG performed at 12:34 sinus bradycardia rate of 57 WA 132 QRS 100 QT/QTC 402/396 - EKG Results: EKG: interpreted by SY Medical Decision Making - Medical Decision Making Was pt. sent in by a medical professional or institution (, PA, ANIMAL CARE SUPERVISOR, urgent care, hospital, or custodial...) When possible be specific @ -No Did you speak to anyone other than the patient for history (EMS, parent, family, police, friend...)? What history was obtained from this source @ -No Did you review nursing and triage notes (agree or disagree)? Why? @ -I reviewed and agree with nursing and triage notes Were old charts reviewed (outside hosp., previous admission, EMS record, old EKG, old radiological studies, urgent care reports/EKG's, custodial records)? Report findings @ -No old charts were reviewed Differential Diagnosis (chest pain, altered mental status, abdominal pain women, abdominal pain men, vaginal bleeding, weakness, fever, dyspnea, syncope, headac he, dizziness, GI bleed, back pain, seizure, CVA, palpatations, mental health, musculoskeletal)? @ -Differential Syncope: Valvular disease, hypertrophic cardiomyopathy, pulmonary embolism, tamponade, tachycardia, bradycardia, [place], hypovolemia, hemorrhage, dissection, anemia, intr acranial hemorrhage, seizure, hypoglycemia, carbon monoxide poisoning, this is not meant to be an all-inclusive list. EKG interpreted by me (3pts min.). @ -As above X-rays interpreted by me (1pt min.). @ -Chest x-ray shows no acute cardio pulmonary process CT interpreted by me (1pt min.). @ -None done U/S interpreted by me (1pt. min.). @ -None done What testing was considered but not performed or refused? (CT, X-rays, U/S, lab s)? Why? @ -None What meds were considered but not given or refused? Why? @ -None Did you discuss the management of the patient with other professionals (professionals i.e. , PA, ANIMAL CARE SUPERVISOR, lab, RT, psych nurse, social media marketing manager, cutting tool sharpener, teacher, project control officer, family independence case manager)? Give summary @ -No Was smoking cessation discussed for >3mins.? @ -No Was critical care preformed (if so, how long)? @ -No Were there social determinants of health that impacted care today? How? (Homelessness, low income, unemployed, alcoholism, drug addiction, transportation, low edu. Level, literacy, decrease access to med. care, retirement, rehab)? @ -No Was there de-escalation of care discussed even if they declined (Discuss DNR or withdrawal of care, Hospice)? DNR status @ -No What co-morbidities impacted this encounter? (DM, HTN, Smoking, COPD, CAD, Cancer, CVA, ARF, Chemo, Hep., AIDS, mental health diagnosis, sleep apnea, morbid obesity)? @ -None Was patient admitted / discharged? Hospital course, mention meds given and route, prescriptions, significant lab abnormalities, going to OR and other pertinent info. @ -Discharge patient is well-appearing vitals are stable patient's laboratory studies are unremarkable. Patient is asymptomatic currently had a near syncopal event after standing up quickly and walking. Patient is COVID-19 positive. We did discuss increasing his fluid intake. Patient feels control discharge. Undiagnosed new problem with uncertain prognosis? @ -No Drug Therapy requiring intensive monitoring for toxicity (Heparin, Nitro, Insulin, Cardizem)? @ -No Were any procedures done? @ -No Diagnosis/symptom? @ -Near-syncope, COVID-19 Acute, or Chronic, or Acute on Chronic? @ -Acute Uncomplicated (without systemic symptoms) or Complicated (systemic symptoms)? @ -[Complicated Side effects of treatment? @ -No Exacerbation, Progression, or Severe Exacerbation? @ -No Poses a threat to life or bodily function? How? (Chest pain, [place], [place], pneumonia, PE, COPD, DKA, ARF, appy, cholecystitis, CVA, Diverticulitis, Homicidal, Suicidal, threat to staff... and all critical care pts) @ -No - Lab Data Result diagrams: 09/10/23 12:36 09/10/23 12:36 Lab Results 09/10/23 09/10/23 09/10/23 Range/Units 12:36 12:36 12:36 WBC 8.0 (3.8-10.6) k/uL RBC 4.50 (4.30-5.90) m/uL Hgb 12.9 L (13.0-17.5) gm/dL Hct 38.2 L (39.0-53.0) % MCV 84.7 (80.0-100.0) fL MCH 28.5 (25.0-35.0) pg MCHC 33.7 (31.0-37.0) g/dL RDW 13.5 (11.5-15.5) % Plt Count 220 (150-450) k/uL MPV 7.6 Neutrophils % 77 % Lymphocytes % 10 % Monocytes % 9 % Eosinophils % 1 % Basophils % 0 % Neutrophils # 6.2 (1.3-7.7) k/uL Lymphocytes # 0.8 L (1.0-4.8) k/uL Monocytes # 0.8 (0-1.0) k/uL Eosinophils # 0.1 (0-0.7) k/uL Basophils # 0.0 (0-0.2) k/uL PT 11.7 (10.0-12.5) sec INR 1.1 (<1.2) APTT 27.9 (22.0-30.0) sec Sodium 138 (137-145) mmol/L Potassium 4.5 (3.5-5.1) mmol/L Chloride 104 (98-107) mmol/L Carbon Dioxide 24 (22-30) mmol/L Anion Gap 10 mmol/L BUN 21 H (9-20) mg/dL Creatinine 0.89 (0.66-1.25) mg/dL Est GFR (CKD-EPI)AfAm >90 (>60 ml/min/1.73 sqM) Est GFR (CKD-EPI)NonAf 84 (>60 ml/min/1.73 sqM) Glucose 127 H (74-99) mg/dL Calcium 9.6 (8.4-10.2) mg/dL Magnesium 1.7 (1.6-2.3) mg/dL Total Bilirubin 1.4 H (0.2-1.3) mg/dL AST 25 (17-59) U/L ALT 18 (4-49) U/L Alkaline Phosphatase 65 (38-126) U/L Troponin I (0.000-0.034) ng/mL Total Protein 6.5 (6.3-8.2) g/dL Albumin 4.1 (3.5-5.0) g/dL Influenza Type A (PCR) (Not Detectd) Influenza Type B (PCR) (Not Detectd) RSV (PCR) (Not Detectd) SARS-CoV-2 (PCR) (Not Detectd) 09/10/23 09/10/23 Range/Units 12:36 12:36 WBC (3.8-10.6) k/uL RBC (4.30-5.90) m/uL Hgb (13.0-17.5) gm/dL Hct (39.0-53.0) % MCV (80.0-100.0) fL MCH (25.0-35.0) pg MCHC (31.0-37.0) g/dL RDW (11.5-15.5) % Plt Count (150-450) k/uL MPV Neutrophils % % Lymphocytes % % Monocytes % % Eosinophils % % Basophils % % Neutrophils # (1.3-7.7) k/uL Lymphocytes # (1.0-4.8) k/uL Monocytes # (0-1.0) k/uL Eosinophils # (0-0.7) k/uL Basophils # (0-0.2) k/uL PT (10.0-12.5) sec INR (<1.2) APTT (22.0-30.0) sec Sodium (137-145) mmol/L Potassium (3.5-5.1) mmol/L Chloride (98-107) mmol/L Carbon Dioxide (22-30) mmol/L Anion Gap mmol/L BUN (9-20) mg/dL Creatinine (0.66-1.25) mg/dL Est GFR (CKD-EPI)AfAm (>60 ml/min/1.73 sqM) Est GFR (CKD-EPI)NonAf (>60 ml/min/1.73 sqM) Glucose (74-99) mg/dL Calcium (8.4-10.2) mg/dL Magnesium (1.6-2.3) mg/dL Total Bilirubin (0.2-1.3) mg/dL AST (17-59) U/L ALT (4-49) U/L Alkaline Phosphatase (38-126) U/L Troponin I <0.012 (0.000-0.034) ng/mL Total Protein (6.3-8.2) g/dL Albumin (3.5-5.0) g/dL Influenza Type A (PCR) Not Detected (Not Detectd) Influenza Type B (PCR) Not Detected (Not Detectd) RSV (PCR) Not Detected (Not Detectd) SARS-CoV-2 (PCR) Detected A (Not Detectd) Disposition Clinical Impression: COVID-19, Near syncope Disposition: HOME SELF-CARE Condition: Stable Instructions (If sedation given, give patient instructions): COVID-19 (Coronavirus Disease 2019) (ED) Additional Instructions: Please return to the Emergency Department if symptoms worsen or any other concerns. Is patient prescribed a controlled substance at d/c from ED?: No Referrals: None,Stated [REFERRING] - 1-2 days Time of Disposition: 14:05
[2023-09-10 13:13] LABS: Basophils % (A) 0 %; Eosinophils # (A) 0.1 k/uL (0-0.7); Eosinophils % (A) 1 %; HCT 38.2 % (39.0-53.0); HGB 12.9 gm/dL (13.0-17.5); Lymphocytes # (A) 0.8 k/uL (1.0-4.8); Lymphocytes % (A) 10 %; MCH 28.5 pg (25.0-35.0); MCHC 33.7 g/dL (31.0-37.0); MCV 84.7 fL (80.0-100.0); Mean Platelet Volume 7.6; Monocytes # (A) 0.8 k/uL (0-1.0); Monocytes % (A) 9 %; Neutrophils # (A) 6.2 k/uL (1.3-7.7); Neutrophils % (A) 77 %; Platelet Count 220 k/uL (150-450); RDW 13.5 % (11.5-15.5)
[2023-09-10 13:22] LABS: INR 1.1 (<1.2); Partial Thromboplastin Time 27.9 sec (22.0-30.0); Prothrombin Time 11.7 sec (10.0-12.5)
--- NOTE | 2023-09-10 13:30 | XR ---
EXAMINATION TYPE: XR chest 2V DATE OF EXAM: 09/10/2023 COMPARISON: 04/19/2023 HISTORY: 73-year-old male syncope TECHNIQUE: PA and lateral views FINDINGS: The cardiomediastinal silhouette, aorta, and pulmonary vasculature are within normal limits. Mild hyp erinflation. Otherwise, lungs and pleural spaces are clear. IMPRESSION: Hyperinflation which could reflect depth of inspiration or underlying COPD. Clinically correlate. No acute cardiopulmonary process.
[2023-09-10 13:43] LABS: ALT 18 U/L (4-49); AST 25 U/L (17-59); African American GFR (CKD) >90 (>60 ml/min/1.73 sqM); Albumin 4.1 g/dL (3.5-5.0); Alkaline Phosphatase 65 U/L (38-126); Anion Gap 10 mmol/L; Blood Urea Nitrogen 21 mg/dL (9-20); Calcium 9.6 mg/dL (8.4-10.2); Carbon Dioxide 24 mmol/L (22-30); Chloride 104 mmol/L (98-107); Glucose 127 mg/dL (74-99); Magnesium 1.7 mg/dL (1.6-2.3); Non-African American GFR(CKD) 84 (>60 ml/min/1.73 sqM); Potassium 4.5 mmol/L (3.5-5.1); Sodium 138 mmol/L (137-145); Total Bilirubin 1.4 mg/dL (0.2-1.3); Total Protein 6.5 g/dL (6.3-8.2)
[2023-09-10 14:28] VITALS: BP 114/54; PULSE 55; RESP 15
== END 2023-09-10 14:36 | disposition home or self-care (01) ==
LOC: EC 11:55
DX: U07.1 COVID-19 (principal); R55 Syncope and collapse; R00.1 Bradycardia, unspecified; I10 Essential (primary) hypertension; Z79.899 Other long term (current) drug therapy; Z88.2 Allergy status to sulfonamides; Z87.891 Personal history of nicotine dependence
CPT/HCPCS: 36415; 71046; 80053; 83735; 84484; 85025; 85610; 85730; 87636; 93005; 96360; 99284

== ENCOUNTER 2024-01-16 05:23 | Observation (INO) | payer MEDICARE ==
[2024-01-16 06:07] LABS: INR 0.9 (<1.2); Partial Thromboplastin Time 25.4 sec (22.0-30.0); Prothrombin Time 10.5 sec (10.0-12.5)
[2024-01-16 06:25] LABS: ALT 21 U/L (4-49); AST 20 U/L (17-59); African American GFR (CKD) 90 (>60 ml/min/1.73 sqM); Albumin 4.3 g/dL (3.5-5.0); Alkaline Phosphatase 62 U/L (38-126); Anion Gap 5 mmol/L; Blood Urea Nitrogen 24 mg/dL (9-20); Calcium 9.4 mg/dL (8.4-10.2); Carbon Dioxide 29 mmol/L (22-30); Chloride 107 mmol/L (98-107); Glucose 115 mg/dL (74-99); Magnesium 1.5 mg/dL (1.6-2.3); Non-African American GFR(CKD) 78 (>60 ml/min/1.73 sqM); Potassium 4.1 mmol/L (3.5-5.1); Sodium 141 mmol/L (137-145); Total Bilirubin 0.7 mg/dL (0.2-1.3); Total Protein 6.7 g/dL (6.3-8.2)
--- NOTE | 2024-01-16 06:34 | ED ---
Chest Pain HPI - General Chief Complaint: Chest Pain Stated Complaint: Chest discomfort, SOB, Time Seen by Provider: 01/16/24 06:08 Source: patient, RN notes reviewed Mode of arrival: ambulatory Limitations: no limitations - History of Present Illness Initial Comments: 73-year-old male presents emergency department chief complaint of indigestion, chest pain, shortness of breath. Patient states that started overnight states that he thought he just had some indigestion but symptoms worsened. He has 2 prior cardiac stents is on Eliquis. Patient states he does feel short of breath from his symptoms. Patient does have a history of hypertension. Patient states the other day he noticed he had some exertional dyspnea along with his chest discomfort. He initially thought it was just more musculoskeletal chest pain but symptoms that worsen. Patient denies any fevers or chills denies any headache, URI symptoms. Denies any diarrhea. No fever. - Related Data Home Medications Medication Instructions Recorded Confirmed Latanoprost/Pf [Latanoprost 0.005% 1 drop BOTH EYES HS 10/11/20 04/23/23 Eye Drop] metFORMIN HCL ER [Glucophage XR] 1,500 mg PO W/SUPPER 08/29/21 04/23/23 Brimonidine Tartrate [Alphagan P 1 drop LEFT EYE BID 04/23/23 04/23/23 0.2% Ophth Soln] lisinopriL [Zestril] 5 mg PO DAILY 04/23/23 04/23/23 Previous Rx's Medication Instructions Recorded Atorvastatin [Lipitor] 80 mg PO DAILY #90 tab 10/13/20 Apixaban [Eliquis] 5 mg PO BID #60 tab 04/24/23 Metoprolol Tartrate [Lopressor] 37.5 mg PO BID #30 tab 04/24/23 Metoprolol Tartrate [Lopressor] 37.5 mg PO BID 10 Days #30 tablet 06/13/23 Allergies Allergy/AdvReac Type Severity Reaction Status Date / Time Sulfa (Sulfonamide Allergy Unknown Verified 01/16/24 05:26 Antibiotics) Review of Systems ROS Statement: Those systems with pertinent positive or pertinent negative responses have been documented in the HPI. ROS Other: All systems not noted in ROS Statement are negative. EKG Findings - EKG Comments: EKG Findings:: EKG performed at 5: 32 sinus bradycardia rate of 56 VA 144 QRS 103 QT/QTc 407/399 - EKG Results: EKG: interpreted by SY Past Medical History Past Medical History: Atrial Fibrillation, Chest Pain / Angina, Hypertension Additional Past Medical History / Comment(s): "eye pressure", cataracts History of Any Multi-Drug Resistant Organisms: None Reported Past Surgical History: Heart Catheterization With Stent Additional Past Surgical History / Comment(s): Detached retina x 2-lasered Past Anesthesia/Blood Transfusion Reactions: No Reported Reaction Date of Last Stent Placement:: september 2020 Past Psychological History: No Psychological Hx Reported Smoking Status: Former smoker Past Alcohol Use History: None Reported Past Drug Use History: None Reported - Past Family History Father Family Medical History: Myocardial Infarction ([place]) General Exam Limitations: no limitations General appearance: alert, in no apparent distress Head exam: Present: atraumatic, normocephalic, normal inspection Eye exam: Present: normal appearance, PERRL, EOMI. Absent: scleral icterus, conjunctival injection, periorbital swelling ENT exam: Present: normal exam, normal oropharynx, mucous membranes moist Neck exam: Present: normal inspection, full ROM. Absent: tenderness, meningismus, lymphadenopathy Respiratory exam: Present: normal lung sounds bilaterally. Absent: respiratory distress, wheezes, rales, rhonchi, stridor Cardiovascular Exam: Present: regular rate, normal rhythm, normal heart sounds. Absent: systolic murmur, diastolic murmur, rubs, gallop, clicks GI/Abdominal exam: Present: soft, normal bowel sounds. Absent: distended, tenderness, guarding, rebound, rigid Course Vital Signs 01/16/24 01/16/24 05:26 06:21 Temperature 98.3 F Pulse Rate 63 54 L Respiratory 16 16 Rate Blood Pressure 189/85 131/82 O2 Sat by Pulse 97 100 Oximetry Chest Pain MDM - MDM Was pt. sent in by a medical professional or institution (, PA, SOLUTION PROFESSIONAL, urgent c are, hospital, or fpc...) When possible be specific @ -No Did you speak to anyone other than the patient for history (EMS, parent, family, police, friend...)? What history was obtained from this source @ -No Did you review nursing and triage notes (agree or disagree)? Why? @ -I reviewed and agree with nursing and triage notes Were old charts reviewed (outside hosp., previous admission, EMS record, old EKG, old radiological studies, urgent care reports/EKG's, fpc records)? Report findings @ -Reviewed prior laboratory studies, EKG Differential Diagnosis (chest pain, altered mental status, abdominal pain women, abdominal pain men, vaginal bleeding, weakness, fever, dyspnea, syncope, headache, dizziness, GI bleed, back pain, seizure, CVA, palpatations, mental health, musculoskeletal)? @Differential Chest Pain: Stable Angina, Unstable Angina, STEMI, NSTEMI Aortic Dissection, Pneumothorax, Musculoskeletal, Esophageal Spasm GERD, Cholecystitis, Pancreatitis, Zoster, this is not meant to be an all-inclusive list. EKG interpreted by me (3pts min.). @ -As above X-rays interpreted by me (1pt min.). @ -Chest x-ray shows no acute cardiopulmonary process. CT interpreted by me (1pt min.). @ -None done U/S interpreted by me (1pt. min.). @ -None done What testing was considered but not performed or refused? (CT, X-rays, U/S, labs)? Why? @ -None What meds were considered but not given or refused? Why? @ -None Did you discuss the management of the patient with other professionals (professionals i.e. , PA, SOLUTION PROFESSIONAL, lab, RT, psych nurse, psych social worker, police magistrate, teacher, seismology technical officer, upper caser)? Give summary @ -[facility] physician for admission for chest pain rule out Was smoking cessation discussed for >3mins.? @ -No Was critical care preformed (if so, how long)? @ -No Were there social determinants of health that impacted care today? How? (Homelessness, low income, unemployed, alcoholism, drug addiction, transportation, low edu. Level, literacy, decrease access to med. care, longterm, rehab)? @ -No Was there de-escalation of care discussed even if they declined (Discuss DNR or withdrawal of care, Hospice)? DNR status @ -No What co-morbidities impacted this encounter? (DM, HTN, Smoking, COPD, CAD, Cancer, CVA, ARF, Chemo, Hep., AIDS, mental health diagnosis, sleep apnea, morbid obesity)? @ -CAD, hypertension Was patient admitted / discharged? Hospital course, mention meds given and route, prescriptions, significant lab abnormalities, going to OR and other pertinent info. @Admitted patient initial troponin is negative no EKG changes patient does have concerning symptoms with significant cardiac history. Patient will be admitted for echocardiogram, cardiology evaluation, repeat troponin. Undiagnosed new problem with uncertain prognosis? @ -No Drug Therapy requiring intensive monitoring for toxicity (Heparin, Nitro, Insulin, Cardizem)? @ -No Were any procedures done? @ -No Diagnosis/symptom? @ -Chest pain Acute, or Chronic, or Acute on Chronic? @ -Acute Uncomplicated (without systemic symptoms) or Complicated (systemic symptoms)? @ -Complicated Side effects of treatment? @ -No Exacerbation, Progression, or Severe Exacerbation? @ -No Poses a threat to life or bodily function? How? (Chest pain, [place], [place], pneumonia, PE, COPD, DKA, ARF, appy, cholecystitis, CVA, Diverticulitis, Homicidal, Suicidal, threat to staff... and all critical care pts) @ -Yes possible ACS Disposition Clinical Impression: Chest pain Disposition: ADMITTED IP TO THIS HOSP Condition: Fair Time of Disposition: 08:02
[2024-01-16 06:52] LABS: Basophils # (A) 0.1 k/uL (0-0.2); Basophils % (A) 1 %; Eosinophils # (A) 0.3 k/uL (0-0.7); Eosinophils % (A) 3 %; HCT 41.5 % (39.0-53.0); HGB 13.9 gm/dL (13.0-17.5); Lymphocytes # (A) 2.4 k/uL (1.0-4.8); Lymphocytes % (A) 25 %; MCH 28.1 pg (25.0-35.0); MCHC 33.5 g/dL (31.0-37.0); MCV 83.8 fL (80.0-100.0); Mean Platelet Volume 8.1; Monocytes # (A) 0.6 k/uL (0-1.0); Monocytes % (A) 7 %; Neutrophils % (A) 62 %; Platelet Count 258 k/uL (150-450); RBC 4.96 m/uL (4.30-5.90); RDW 13.4 % (11.5-15.5); WBC 9.6 k/uL (3.8-10.6)
--- NOTE | 2024-01-16 07:25 | XR ---
EXAMINATION TYPE: XR chest 2V DATE OF EXAM: 01/16/2024 COMPARISON: 09/10/2023 INDICATION: Chest pain TECHNIQUE: Frontal and lateral views of the chest are obtained. FINDINGS: The heart size is normal. The pulmonary vasculature is normal. The lungs are clear. IMPRESSION: 1. No acute pulmonary process.
[2024-01-16] MEDS ORDERED: NITROGLYCERIN SL TABS 0.4 MG TAB SUBLINGUAL PRN (08:03)
[2024-01-16] MEDS ORDERED: METOPROLOL TARTRATE 25 MG TAB PO SCH (09:00)
[2024-01-16] MEDS: ATORVASTATIN 80 MG TAB PO SCH (10:01)
[2024-01-16] MEDS: APIXABAN 5 MG TAB PO SCH (10:01)
[2024-01-16] MEDS: ASPIRIN 81 MG PO STA (10:02)
[2024-01-16] MEDS: METOPROLOL TARTRATE 12.5 MG TAB PO SCH (10:02)
[2024-01-16] MEDS: lisinopriL 5 MG TAB PO SCH (10:03)
[2024-01-16] MEDS: BRIMONIDINE TARTRATE 0.2% DROPS 5 ML BTL LEFT EYE SCH (10:04)
[2024-01-16] MEDS: MAGNESIUM SULFATE-D5W PMX 1 GM in DEXTROSE/WATER 1 100ML.BAG IVPB SCH (10:10)
[2024-01-16] MEDS: LISINOPRIL-HCTZ 20-12.5 MG 1 EACH TAB PO SCH (11:09)
--- NOTE | 2024-01-16 13:24 | P.HPIM ---
History of Present Illness H&P Date: 01/16/24 History of Presenting Illness: Patient is a very pleasant 73-year-old male with a past medical history of CAD status post stenting x 2, hypertension, hyperlipidemia, paroxysmal atrial fibrillation on anticoagulation with Eliquis, aortic stenosis, type II pya-zirfseh-ymheztxxs diabetes mellitus, and history of retinal detachment in the left eye. He presented to the emergency department with a chief complaint of chest pain. He reports he began feeling pain to the right side of his chest right of midline approximately 1 week ago and states that he wrote this off as just a pulled muscle or something because it would come and go. He reports in addition to that he has been experiencing increased episodes of indigestion and that this has also waxed and waned throughout the week. He does report the symptoms seem to worsen with walking but denies reproducible pain with movement or upon applying pressure to this area. He reports this morning he was awoken by significant pressure to his midsternal chest. Patient reports it was a significant pressure and he initially thought it was a bad dream but states upon awakening the pressure was so severe he woke up his and told her she better take him to the emergency department to get checked out. Patient reports in addition to these complaints he has also noticed some difficulties with swallowing, he denies pain when swallowing or actually choking but reports it feels like his throat is just not working. He reports this has been with water, food, and when taking his pills at times. He states it is not all the time but has been happening recently. He reports he follows with winding inspector and tester Dr. Viveros and was supposed to schedule a cardiac stress test. Patient reports pain/pressure to his midsternal chest is currently resolved, but states he is certain if he tried to walk a lap around this emergency department the pain would return. Patient denies any recent illnesses or exposure to known ill contacts, headache, lightheadedness, dizziness, palpitations, shortness of breath, cough or congestion, orthopnea, nausea, vomiting, abdominal pain, or experiencing any numbness/tingling/weakness/swelling in his extremities. He underwent evaluation in the emergency department. Vital signs upon arrival show blood pressure 189/85, heart rate 63, respiratory rate 16, temp 98.3 F, and SpO2 of 97% on room air. EKG was completed showing time per minute with no noted T wave or ST abnormalities showing no signs of acute ischemia. Chest x- ray negative for acute cardiopulmonary process. Labs completed and reviewed. CBC unremarkable. Coagulation profile normal findings including D-dimer of 0.38. BMP showing mild prerenal azotemia with BUN of 24 otherwise normal findings. Blood glucose 115. Magnesium was low at 1.5. Liver profile unremarkable. Troponin 0.016. Heart score 7. Patient admitted under our services with consultation to cardiology. Review of systems: Pertinent positives and negatives as discussed in HPI, a complete review of systems was performed and all other systems are negative. Physical exam: Vital signs reviewed and stable. General: Nontoxic, no distress and appears stated age. Derm: Skin warm and dry, normal coloration for ethnicity. Head: Atraumatic, normocephalic and symmetric. Eyes: EOMs intact, no lid lag, and anicteric sclera Mouth: no lip lesions, mucus membranes moist Cardiovascular: regular rate and rhythm with normal S1S2, systolic murmur, positive posterior tibial pulses bilaterally, and cap refill < 2 seconds. No reproducible pain upon palpation to chest or with movement of arms. Lungs: Respirations even, regular, and unlabored on room air. Lungs CTA bilaterally, no rhonchi, no rales, no wheezing, and no accessory muscle usage. Abdominal: soft, nontender to palpation, no guarding, no appreciable organomegaly Ext: ROM intact. No gross muscle atrophy, no edema, no contractures Neuro: Speech clear, face symmetrical and CN II-XII grossly intact with no noted focal neuro deficits Psych: Alert and oriented to person, place, time, and situation. Appropriate and pleasant affect. Assessment and Plan of Care: Chest pain, rule out acute coronary event History of CAD status post stenting Paroxysmal atrial fibrillation Hypertension Hyperlipidemia Aortic stenosis -Cardiology consulted, appreciate recommendations -Telemetry monitoring -Trend troponins -Cardiac diet, NPO at midnight -Continue daily medication regimen with aspirin 81 mg daily, Eliquis 5 mg twice daily, atorvastatin 80 mg daily, lisinopril/hydrochlorothiazide 20-12.5 mg daily, metoprolol 37.5 mg twice daily, and as needed sublingual nitroglycerin 0.4 mg sublingually for reports of chest pain/pressure. -Lipid profile with a.m. labs. -Echocardiogram to be completed Type II vyh-ghtjxrm-vgpmoradb diabetes mellitus Hold metformin and patient placed on glycemic protocol with NovoLog sliding scale. Obtain hemoglobin A1c. History of retinal detachment Continue eyedrops with Lanter process 1 drop both eyes and brinonidine tartrate 1 drop left eye twice daily. Data and imaging reviewed: As stated above in HPI The patient is admitted with an anticipated less than than 2 midnight stay for evaluation of chest pain CODE STATUS: Full code DVT prophylaxis: Eliquis Anticipated discharge date: 24 to [address]: Home Patient was seen independently by Nurse Practitioner. This document was prepared using [employer] dictation software. Please allow for errors in assistant professor of sociology while rare they do occur. Korey Johansen NP rendered care for this patient independently, reviewed the findings and plan as documented in the note above. I did not physically speak with or examine the patient on this date. Past Medical History Past Medical History: Atrial Fibrillation, Chest Pain / Angina, Hypertension Additional Past Medical History / Comment(s): "eye pressure", cataracts History of Any Multi-Drug Resistant Organisms: None Reported Past Surgical History: Heart Catheterization With Stent Additional Past Surgical History / Comment(s): Detached retina x 2-lasered Past Anesthesia/Blood Transfusion Reactions: No Reported Reaction Date of Last Stent Placement:: september 2020 Past Psychological History: No Psychological Hx Reported Smoking Status: Former smoker Past Alcohol Use History: None Reported Past Drug Use History: None Reported - Past Family History Father Family Medical History: Myocardial Infarction ([place]) Medications and Allergies Home Medications Medication Instructions Recorded Confirmed Type Latanoprost/Pf [Latanoprost 0.005% 1 drop BOTH EYES HS 10/11/20 01/16/24 History Eye Drop] Atorvastatin [Lipitor] 80 mg PO DAILY #90 tab 10/13/20 01/16/24 Rx metFORMIN HCL ER [Glucophage XR] 1,500 mg PO W/SUPPER 08/29/21 01/16/24 History Brimonidine Tartrate [Alphagan P 1 drop LEFT EYE BID 04/23/23 01/16/24 History 0.2% Ophth Soln] Apixaban [Eliquis] 5 mg PO BID #60 tab 04/24/23 01/16/24 Rx Lisinopril-Hctz 20-12.5 mg 1 tab PO DAILY 01/16/24 01/16/24 History [Zestoretic 20-12.5] Metoprolol Tartrate [Lopressor] 37.5 mg PO BID 01/16/24 01/16/24 History Multivitamins, Thera [Multivitamin 1 tab PO DAILY 01/16/24 01/16/24 History (formulary)] Allergies Allergy/AdvReac Type Severity Reaction Status Date / Time silver sulfadiazine Allergy Rash/Hives Verified 01/16/24 09:34 Sulfa (Sulfonamide Allergy Rash/Hives Verified 01/16/24 09:34 Antibiotics) Physical Exam Osteopathic Statement: *. No significant issues noted on an osteopathic structural exam other than those noted in the History and Physical/Consult. Vitals: Vital Signs Temp Pulse Resp BP Pulse Ox 01/16/24 06:21 54 L 16 131/82 100 01/16/24 05:26 98.3 F 63 16 189/85 97 Intake and Output 01/15/24 01/16/24 01/16/24 22:59 06:59 14:59 Other: Weight 65.317 kg Results CBC & Chem 7: 01/16/24 05:32 01/16/24 05:32 Labs: Abnormal Lab Results - Last 24 Hours (Table) 01/16/24 Range/Units 05:32 BUN 24 H (9-20) mg/dL Glucose 115 H (74-99) mg/dL Magnesium 1.5 L (1.6-2.3) mg/dL
[2024-01-16] MEDS ORDERED: DEXTROSE 50% SYRINGE 50 ML IVP PRN ×2 (13:26)
--- NOTE | 2024-01-16 14:17 | P.CRDCN ---
History of Present Illness Consult date: 01/16/24 Consult reason: chest pain History of present illness: History of present illness: This is a 73-year-old male patient of Dr. Viveros with past medical history of coronary artery disease with previous stenting of the RCA, hypertension, dyslipidemia, diabetes, aortic stenosis and regurgitation, borderline dilated thoracic aorta, paroxysmal atrial fibrillation on Eliquis. We have been asked to evaluate the patient for chest pain. Patient states that he woke up in the morning had pressure in his chest in the midsternal area. It woke him from a sleep. He also had right sided chest pain last week like a finger was pushing into his chest on the upper anterior chest wall area. He states he has had chest pain on and off for the past week. He states sometimes it happens after he eats and when he drinks water it feels like it is not going down. He denies any radiation of the pain. The episodes of pain usually last about 5 to 10 minutes. No shortness of breath, no lightheadedness or dizziness, no palpitations. EKG sinus rhythm with no acute ST changes. Chest x-ray: No acute process. CBC, INR, D-dimer, electrolytes are all within normal limits. BUN 24 creatinine 0.96. Troponins negative x 3. Magnesium 1.5. Home cardiac medications: Eliquis 5 mg twice daily, atorvastatin 80 mg daily, lisinopril/hydrochlorothiazide 20-12.5 mg daily, Lopressor 37.5 mg twice daily. Cardiac catheterization performed on 10/07/2021 revealed critical disease in the RCA and subsequent PCI of the RCA. Echocardiogram performed 10/04/2023 in the office revealed normal EF, moderate MR, moderate TR, mild , mild AR, mild pulmonary hypertension. Exercise tolerance test performed in the office 10/21/2020 was nondiagnostic. Review Of Systems: At the time of my exam: CONSTITUTIONAL: Denies fever or chills. HEENT: Denies blurred vision, vision changes, or eye pain. Denies hemoptysis CARDIOVASCULAR: Reports chest pain. Denies orthopnea. Denies PND. Denies palpitations RESPIRATORY: Denies shortness of breath. GASTROINTESTINAL: Denies abdominal pain. Denies nausea or vomiting. HEMATOLOGIC: Denies bleeding disorders. GENITOURINARY: Denies any blood in urine. SKIN: Denies pruitis. Denies rash. Physical examination: Gen: This is a 73-year-old male in no acute distress VS: reviewed, blood pressure 103/63, heart rate 50, pulse ox 97% on room air HEENT: Head is atraumatic, normocephalic. Pupils equal, round. Sclerae is anicteric. NECK: Supple. No JVD. LUNGS: Clear to auscultation. No wheezes or rhonchi. No intercostal retractions. HEART: Regular rate and rhythm. Systolic murmur. ABDOMEN: Soft No tenderness. EXTREMITIES: No pedal edema. No calf tenderness. NEUROLOGICAL: Patient is awake, alert and oriented x3. Assessment: Atypical chest pain, acute coronary syndrome ruled out with negative troponins History of coronary artery disease with prior stenting of the RCA Hypertension Dyslipidemia Valvular heart disease with moderate MR, moderate TR, mild AAS, mild AR, mild pulmonary hypertension Borderline dilated thoracic aorta Paroxysmal atrial fibrillation currently in a sinus rhythm Plan: Continue patient's home cardiac medications Obtain 2-D echocardiogram and Doppler study to assess cardiac structure and function Further recommendations to follow based upon clinical course Thank you kindly for this consultation. Nurse practitioner note has been reviewed, I agree with documented findings and plan of care. Patient was seen and examined. Past Medical History Past Medical History: Atrial Fibrillation, Chest Pain / Angina, Hypertension Additional Past Medical History / Comment(s): "eye pressure", cataracts History of Any Multi-Drug Resistant Organisms: None Reported Past Surgical History: Heart Catheterization With Stent Additional Past Surgical History / Comment(s): Detached retina x 2-lasered Past Anesthesia/Blood Transfusion Reactions: No Reported Reaction Date of Last Stent Placement:: september 2020 Past Psychological History: No Psychological Hx Reported Smoking Status: Former smoker Past Alcohol Use History: None Reported Past Drug Use History: None Reported - Past Family History Father Family Medical History: Myocardial Infarction (CT) Medications and Allergies Home Medications Medication Instructions Recorded Confirmed Type Latanoprost/Pf [Latanoprost 0.005% 1 drop BOTH EYES HS 10/11/20 01/16/24 History Eye Drop] Atorvastatin [Lipitor] 80 mg PO DAILY #90 tab 10/13/20 01/16/24 Rx metFORMIN HCL ER [Glucophage XR] 1,500 mg PO W/SUPPER 08/29/21 01/16/24 History Brimonidine Tartrate [Alphagan P 1 drop LEFT EYE BID 04/23/23 01/16/24 History 0.2% Ophth Soln] Apixaban [Eliquis] 5 mg PO BID #60 tab 04/24/23 01/16/24 Rx Lisinopril-Hctz 20-12.5 mg 1 tab PO DAILY 01/16/24 01/16/24 History [Zestoretic 20-12.5] Metoprolol Tartrate [Lopressor] 37.5 mg PO BID 01/16/24 01/16/24 History Multivitamins, Thera [Multivitamin 1 tab PO DAILY 01/16/24 01/16/24 History (formulary)] Allergies Allergy/AdvReac Type Severity Reaction Status Date / Time silver sulfadiazine Allergy Rash/Hives Verified 01/16/24 09:34 Sulfa (Sulfonamide Allergy Rash/Hives Verified 01/16/24 09:34 Antibiotics) Physical Exam Vitals: Vital Signs Temp Pulse Resp BP Pulse Ox 01/16/24 13:44 50 L 18 103/63 97 01/16/24 10:05 98.1 F 60 18 129/79 100 01/16/24 06:21 54 L 16 131/82 100 01/16/24 05:26 98.3 F 63 16 189/85 97 Intake and Output 01/15/24 01/16/24 01/16/24 22:59 06:59 14:59 Other: Weight 65.317 kg Results 01/16/24 05:32 01/16/24 05:32 Cardiac Enzymes 01/16/24 01/16/24 01/16/24 Range/Units 05:32 05:32 09:13 AST 20 (17-59) U/L Troponin I 0.016 <0.012 (0.000-0.034) ng/mL 01/16/24 Range/Units 11:50 AST (17-59) U/L Troponin I <0.012 (0.000-0.034) ng/mL Coagulation 01/16/24 Range/Units 05:32 PT 10.5 (10.0-12.5) sec APTT 25.4 (22.0-30.0) sec CBC 01/16/24 Range/Units 05:32 WBC 9.6 (3.8-10.6) k/uL RBC 4.96 (4.30-5.90) m/uL Hgb 13.9 (13.0-17.5) gm/dL Hct 41.5 (39.0-53.0) % Plt Count 258 (150-450) k/uL Comprehensive Metabolic Panel 01/16/24 Range/Units 05:32 Sodium 141 (137-145) mmol/L Potassium 4.1 (3.5-5.1) mmol/L Chloride 107 (98-107) mmol/L Carbon Dioxide 29 (22-30) mmol/L BUN 24 H (9-20) mg/dL Creatinine 0.96 (0.66-1.25) mg/dL Glucose 115 H (74-99) mg/dL Calcium 9.4 (8.4-10.2) mg/dL AST 20 (17-59) U/L ALT 21 (4-49) U/L Alkaline Phosphatase 62 (38-126) U/L Total Protein 6.7 (6.3-8.2) g/dL Albumin 4.3 (3.5-5.0) g/dL Current Medications Generic Name Dose Route Start Last Admin Trade Name Freq PRN Reason Stop Dose Admin Apixaban 5 mg 01/16/24 09:00 01/16/24 10:01 Apixaban 5 Mg Tab PO 5 mg BID [facility] Administration Protocol Aspirin 81 mg 01/17/24 09:00 Aspirin 81 Mg PO DAILY [facility] Atorvastatin Calcium 80 mg 01/16/24 09:00 01/16/24 10:01 Atorvastatin 80 Mg Tab PO 80 mg DAILY [facility] Administration Brimonidine Tartrate 1 drops 01/16/24 09:00 01/16/24 10:04 Brimonidine Tartrate 0.2% Drops 5 Ml Btl LEFT EYE 1 drops BID [facility] Administration Dextrose/Water 25 ml 01/16/24 13:26 Dextrose 50% Syringe 50 Ml IVP PER PROTOCOL PRN Hypoglycemia Protocol Dextrose/Water 50 ml 01/16/24 13:26 Dextrose 50% Syringe 50 Ml IVP PER PROTOCOL PRN Hypoglycemia Protocol Lisinopril/HCTZ 1 each 01/16/24 11:00 01/16/24 11:09 Lisinopril-Hctz 20-12.5 Mg 1 Each Tab PO 1 each DAILY [facility] Administration Insulin Aspart 0 unit 01/16/24 17:30 Insulin Aspart (Novolog) 100 Unit/Ml Vial SQ ACHS [facility] Protocol Latanoprost 1 drops 01/16/24 21:00 Latanoprost 0.005% Ophth Drops 2.5 Ml Btl BOTH EYES HS [facility] Metoprolol Tartrate 37.5 mg 01/16/24 09:00 01/16/24 10:02 Metoprolol Tartrate 12.5 Mg Tab PO 37.5 mg BID [facility] Administration Multivitamins 1 each 01/17/24 09:00 Multivitamins, Thera 1 Each Tab PO DAILY [facility] Nitroglycerin 0.4 mg 01/16/24 08:03 Nitroglycerin Sl Tabs 0.4 Mg Tab SUBLINGUAL Q5M PRN Chest Pain Intake and Output 01/15/24 01/16/24 01/16/24 22:59 06:59 14:59 Other: Weight 65.317 kg 01/16/24 05:32 01/16/24 05:32
[2024-01-16 14:25] LABS: Glucose,Whole Blood 109 mg/dL (70-110)
[2024-01-16 16:28] LABS: Glucose,Whole Blood 151 mg/dL (70-110)
[2024-01-16] MEDS: INSULIN ASPART (NovoLOG) 100 UNIT/ML VIAL SQ SCH (16:32)
[2024-01-16] MEDS ORDERED: METOPROLOL TARTRATE 37.5 MG PO SCH (21:00)
[2024-01-16 21:26] LABS: Glucose,Whole Blood 110 mg/dL (70-110)
[2024-01-16 21:58] VITALS: RESP 16
[2024-01-16] MEDS: LATANOPROST 0.005% OPHTH DROPS 2.5 ML BTL BOTH EYES SCH (23:06)
[2024-01-17 05:44] LABS: Glucose,Whole Blood 101 mg/dL (70-110)
[2024-01-17 08:08] VITALS: BP 126/73; PULSE 52; TEMP 98
[2024-01-17] MEDS ORDERED: ASPIRIN 325 MG TAB PO SCH (09:00)
[2024-01-17] MEDS: ASPIRIN 81 MG PO SCH (09:13)
[2024-01-17] MEDS: PANTOPRAZOLE 40 MG TABLET PO SCH (09:13)
[2024-01-17] MEDS: MULTIVITAMINS, THERA 1 EACH TAB PO SCH (09:13)
--- NOTE | 2024-01-17 11:00 | P.DS ---
Providers Date of admission: 01/16/24 07:58 Expected date of discharge: 01/17/24 Attending physician: Rui Antony MD Consults: 01/16/24 08:03 Consult Physician Urgent Consulting Provider: Noel Viveros Consult Reason/Comments: chest pain Do you want consulting provider notified?: Yes Primary care physician: Yvan Mansfield Hospital Course: Discharge Diagnosis: Chest pain, acute coronary event ruled out. Patient evaluated by cardiology, stated no need for repeat echocardiogram as patient recently had echo done in office. Clinical Nutritionist clearing patient from cardiac standpoint recommending outpatient follow-up in their office in 1 week. Chest pain suspicious for acid reflux, patient was started on Protonix 40 mg twice daily and encouraged to follow-up with his PCP in 1 to 2 days. History of CAD status post stenting. Continue to follow-up outpatient with geology instructor. Paroxysmal atrial fibrillation. Continue Eliquis 5 mg twice daily for anticoagulation and metoprolol 37.5 mg twice daily for rate control. Hypertension. Continue daily medication regimen with metoprolol 37.5 mg twice daily and lisinopril/hydrochlorothiazide 20/12.5 mg daily. Hyperlipidemia. Continue daily medication regimen with atorvastatin 80 mg daily. Aortic stenosis. Continue to follow-up outpatient with geology instructor for long- term monitoring and if needed management. Type II [id number] diabetes mellitus. Patient to resume metformin 1500 mg daily. Hemoglobin A1c is 6.1%. History of retinal detachment. Continue eyedrops with Lanter process 1 drop both eyes and brinonidine tartrate 1 drop left eye twice daily. Hospital Course:: Patient is a very pleasant 73-year-old male with a past medical history of CAD status post stenting x 2, hypertension, hyperlipidemia, paroxysmal atrial fibrillation on anticoagulation with Eliquis, aortic stenosis, type II [id number] diabetes mellitus, and history of retinal detachment in the left eye. He presented to the emergency department with a chief complaint of chest pain. He reports he began feeling pain to the right side of his chest right of midline approximately 1 week ago and states that he wrote this off as just a pulled muscle or something because it would come and go. He reports in addition to that he has been experiencing increased episodes of indigestion and that this has also waxed and waned throughout the week. He does report the symptoms seem to worsen with walking but denies reproducible pain with movement or upon applying pressure to this area. He reports this morning he was awoken by significant pressure to his midsternal chest. Patient reports it was a significant pressure and he initially thought it was a bad dream but states upon awakening the pressure was so severe he woke up his and told her she better take him to the emergency department to get checked out. Patient reports in addition to these complaints he has also noticed some difficulties with swallowing, he denies pain when swallowing or actually choking but reports it feels like his throat is just not working. He reports this has been with water, food, and when taking his pills at times. He states it is not all the time but has been happening recently. He reports he follows with geology instructor Dr. Viveros and was supposed to schedule a cardiac stress test. Patient reports pain/pressure to his midsternal chest is currently resolved, but states he is certain if he tried to walk a lap around this emergency department the pain would return. Patient denies any recent illnesses or exposure to known ill contacts, headache, lightheadedness, dizziness, palpitations, shortness of breath, cough or congestion, orthopnea, nausea, vomiting, abdominal pain, or experiencing any numbness/tingling/weakness/swelling in his extremities. He underwent evaluation in the emergency department. Vital signs upon arrival show blood pressure 189/85, heart rate 63, respiratory rate 16, temp 98.3 F, and SpO2 of 97% on room air. EKG was completed showing time per minute with no noted T wave or ST abnormalities showing no signs of acute ischemia. Chest x- ray negative for acute cardiopulmonary process. Labs completed and reviewed. CBC unremarkable. Coagulation profile normal findings including D-dimer of 0.38. BMP showing mild prerenal azotemia with BUN of 24 otherwise normal findings. Blood glucose 115. Magnesium was low at 1.5. Liver profile unremarkable. Troponin 0.016. Heart score 7. Patient admitted under our services with consultation to cardiology. Troponins were trended resulting at 0.016, and less than 0.012 x 2 draws. Lipid profile was unremarkable with the exception of low HDL of 31.4. Hemoglobin A1c 6.1%. Patient evaluated by cardiology, stated no need for repeat echocardiogram as patient recently had echo done in office. Clinical Nutritionist clearing patient from cardiac standpoint recommending outpatient follow-up in their office in 1 week. Patient had no further complaints of chest pain/pressure since arrival to our facility and being started on Protonix 40 mg twice daily as his complaint was also suspicious of reflux. Patient discharged home on Protonix 40 mg twice daily and to follow- up outpatient with PCP in 1 to 2 days and with geology instructor in 1 week. Physical exam: Vital signs reviewed and stable. General: Nontoxic, no distress and appears stated age. Derm: Skin warm and dry, normal coloration for ethnicity. Head: Atraumatic, normocephalic and symmetric. Eyes: EOMs intact, no lid lag, and anicteric sclera Mouth: no lip lesions, mucus membranes moist Cardiovascular: regular rate and rhythm with normal S1S2, systolic murmur, positive posterior tibial pulses bilaterally, and cap refill < 2 seconds. No reproducible pain upon palpation to chest or with movement of arms. Lungs: Respirations even, regular, and unlabored on room air. Lungs CTA bilaterally, no rhonchi, no rales, no wheezing, and no accessory muscle usage. Abdominal: soft, nontender to palpation, no guarding, no appreciable organomegaly Ext: ROM intact. No gross muscle atrophy, no edema, no contractures Neuro: Speech clear, face symmetrical and CN II-XII grossly intact with no noted focal neuro deficits Psych: Alert and oriented to person, place, time, and situation. Appropriate and pleasant affect. A total of 33 minutes of time were spent preparing this complex discharge summary. Pt was discharged on 01/17/2024 at 11:02 AM. Patient was seen independently by Nurse Practitioner. This document was prepared using [employer] dictation software. Please allow for errors in supervisor bit and shank department while rare they do occur. Patient Condition at Discharge: Stable Plan - Discharge Summary Discharge Rx Participant: No New Discharge Prescriptions: New Pantoprazole [Protonix] 40 mg PO AC-BRKFST 30 Days #60 tab Continue Latanoprost/Pf [Latanoprost 0.005% Eye Drop] 1 drop BOTH EYES HS Atorvastatin [Lipitor] 80 mg PO DAILY #90 tab Brimonidine Tartrate [Alphagan P 0.2% Ophth Soln] 1 drop LEFT EYE BID Apixaban [Eliquis] 5 mg PO BID #60 tab Multivitamins, Thera [Multivitamin (formulary)] 1 tab PO DAILY Metoprolol Tartrate [Lopressor] 37.5 mg PO BID Lisinopril-Hctz 20-12.5 mg [Zestoretic 20-12.5] 1 tab PO DAILY metFORMIN HCL ER [Glucophage XR] 1,500 mg PO W/SUPPER Discharge Medication List Latanoprost/Pf [Latanoprost 0.005% Eye Drop] 1 drop BOTH EYES HS 10/11/20 [History] Atorvastatin [Lipitor] 80 mg PO DAILY #90 tab 10/13/20 [Rx] metFORMIN HCL ER [Glucophage XR] 1,500 mg PO W/SUPPER 08/29/21 [History] Brimonidine Tartrate [Alphagan P 0.2% Ophth Soln] 1 drop LEFT EYE BID 04/23/23 [History] Apixaban [Eliquis] 5 mg PO BID #60 tab 04/24/23 [Rx] Lisinopril-Hctz 20-12.5 mg [Zestoretic 20-12.5] 1 tab PO DAILY 01/16/24 [History] Metoprolol Tartrate [Lopressor] 37.5 mg PO BID 01/16/24 [History] Multivitamins, Thera [Multivitamin (formulary)] 1 tab PO DAILY 01/16/24 [H istory] Pantoprazole [Protonix] 40 mg PO AC-BRKFST 30 Days #60 tab 01/17/24 [Rx] Follow up Appointment(s)/Referral(s): Noel Viveros MD [STAFF PHYSICIAN] - 1 Week (office will call ) Yvan Conway DO [Primary Care Provider] - 1-2 days Patient Instructions/Handouts: Chest Pain (DC) Activity/Diet/Wound Care/Special Instructions: Activity: As tolerated. Take breaks as needed. Diet: Heart healthy and carb consistent diet. Avoid salts, or foods with hidden salts such as canned or boxed foods and frozen dinners. Extra salt makes your heart work harder and traps the fluid in your body for longer. Special Instructions: Take all of your medications as directed and remember to keep all of your doctor's appointments and follow-up as needed. Thank you for allowing us to participate in your care, it was truly a pleasure having you for our patient!!! Discharge Disposition: HOME SELF-CARE
[2024-01-17 11:41] LABS: Chol/HDL Ratio 3.28 Ratio; LDL Cholesterol,Calculated 53.7 mg/dL (0.0-131.0); VLDL Calculation 17.92 mg/dL (5.00-40.00)
--- NOTE | 2024-01-17 11:56 | CA ---
Transthoracic Echo Report Name: Henrique Saleem Age: 73 Gender: M : 1950 Exam Date: 01/17/2024 08:02 Exam Location: [place] [facility] Ht (in): 71 Wt (lb): 144 Ordering Physician: Milton Mcdermott Attending/Referring Phys: [id number], Sharron Rn Lvn Tonia Leary RDCS Procedure CPT: Indications: Chest Pain Cardiac Hx: Technical Quality: Fair Contrast 1: Total Dose (mL): Contrast 2: Total Dose (mL): MEASUREMENTS (Male / Female) Normal Values 2D ECHO LV Diastolic Diameter PLAX 4.6 cm 4.2 - 5.9 / 3.9 - 5.3 cm LV Systolic Diameter PLAX 3.6 cm IVS Diastolic Thickness 1.0 cm 0.6 - 1.0 / 0.6 - 0.9 cm LVPW Diastolic Thickness 0.9 cm 0.6 - 1.0 / 0.6 - 0.9 cm LV Relative Wall Thickness 0.4 RV Internal Dim ED PLAX 2.8 cm LVOT Diameter 2.1 cm Aortic Root Diameter 3.5 cm LV Diastolic Volume MOD BP 119.6 cm??? 67 - 155 / 56 - 104 cm??? LV Systolic Volume MOD BP 44.9 cm??? 22 - 58 / 19 - 49 cm??? LV Ejection Fraction MOD BP 62.5 % >= 55 % LV Cardiac Index MOD BP 2198.3 cm???/min???m??? LV Diastolic Volume MOD 4C 117.0 cm??? LV Systolic Volume MOD 4C 43.7 cm??? LV Ejection Fraction MOD 4C 62.7 % LV Cardiac Index MOD 4C 2159.9 cm???/min???m??? LV Diastolic Length 4C 8.7 cm LV Systolic Length 4C 7.2 cm LV Diastolic Volume MOD 2C 122.8 cm??? LV Systolic Volume MOD 2C 44.2 cm??? LV Ejection Fraction MOD 2C 64.0 % LV Cardiac Index MOD 2C 2314.0 cm???/min???m??? LV Diastolic Length 2C 8.6 cm LV Systolic Length 2C 6.9 cm DOPPLER AV Peak Velocity 143.5 cm/s AV Peak Gradient 8.2 mmHg AV Mean Velocity 100.8 cm/s AV Mean Gradient 4.5 mmHg AV Velocity Time Integral 35.6 cm LVOT Peak Velocity 101.5 cm/s LVOT Peak Gradient 4.1 mmHg LVOT Velocity Time Integral 23.0 cm LVOT Stroke Volume 80.6 cm??? LVOT Stroke Volume Index 44.0 ml/m??? LVOT Cardiac Index 2372.8 cm???/min???m??? AV Area Cont Eq vti 2.3 cm??? AV Area Cont Eq pk 2.5 cm??? Mitral E Point Velocity 60.8 cm/s Mitral A Point Velocity 92.9 cm/s Mitral E to A Ratio 0.7 MV Deceleration Time 251.7 ms MV E' Velocity 5.3 cm/s Mitral E to MV E' Ratio 11.4 TR Peak Velocity 272.6 cm/s TR Peak Gradient 29.7 mmHg Right Atrial Pressure 10.0 mmHg Pulmonary Artery Systolic Pressu 39.7 mmHg Right Ventricular Systolic Press 39.7 mmHg PV Peak Velocity 89.6 cm/s PV Peak Gradient 3.2 mmHg FINDINGS Left Ventricle Left ventricular ejection fraction is estimated at 55-60 %. Left ventricular cavity size normal. Left ventricular wall thickness normal. No obvious regional wall motion abnormalities. Right Ventricle Normal right ventricular size and function. Mildly elevated right ventricular systolic pressure. Right Atrium Mild right atrial dilatation. Left Atrium Normal left atrial size. Mitral Valve Mitral valve thickened. No evidence for mitral valve prolapse. No mitral stenosis. Trace mitral regurgitation. Aortic Valve Trileaflet aortic valve. No aortic valve stenosis or regurgitation. Tricuspid Valve Structurally normal tricuspid valve. No tricuspid stenosis. Mild tricuspid regurgitation. Pulmonic Valve Structurally normal pulmonic valve. No pulmonic stenosis. No pulmonic regurgitation. Pericardium No pericardial effusion. Aorta Aortic annulus normal. Ascending aorta not well visualized. CONCLUSIONS Normal LV systolic function Thickened mitral valve leaflets Aortic sclerosis with no stenosis or regurgitation Previewed by: Dr. Noel Viveros MD (Electronically Signed) Final Date: 17 Jan 2024 11:55
--- NOTE | 2024-01-17 14:46 | P.PN ---
Subjective Progress Note Date: 01/17/24 Consult reason: chest pain History of present illness: History of present illness: This is a 73-year-old male patient of Dr. Viveros with past medical history of coronary artery disease with previous stenting of the RCA, hypertension, dyslipidemia, diabetes, aortic stenosis and regurgitation, borderline dilated thoracic aorta, paroxysmal atrial fibrillation on Eliquis. We have been asked to evaluate the patient for chest pain. Patient states that he woke up in the morning had pressure in his chest in the midsternal area. It woke him from a sleep. He also had right sided chest pain last week like a finger was pushing into his chest on the upper anterior chest wall area. He states he has had chest pain on and off for the past week. He states sometimes it happens after he eats and when he drinks water it feels like it is not going down. He denies any radiation of the pain. The episodes of pain usually last about 5 to 10 minutes. No shortness of breath, no lightheadedness or dizziness, no palpitations. EKG sinus rhythm with no acute ST changes. Chest x-ray: No acute process. CBC, INR, D-dimer, electrolytes are all within normal limits. BUN 24 creatinine 0.96. Troponins negative x 3. Magnesium 1.5. Home cardiac medications: Eliquis 5 mg twice daily, atorvastatin 80 mg daily, lisinopril/hydrochlorothiazide 20-12.5 mg daily, Lopressor 37.5 mg twice daily. Cardiac catheterization performed on 10/07/2021 revealed critical disease in the RCA and subsequent PCI of the RCA. Echocardiogram performed 10/04/2023 in the office revealed normal EF, moderate MR, moderate TR, mild , mild AR, mild pulmonary hypertension. Exercise tolerance test performed in the office 10/21/2020 was nondiagnostic. 01/16 Patient denies having any chest pain. Troponins have been negative x 3. He had a recent echocardiogram in September with normal EF.Blood pressure 126/73, heart rate 52, pulse ox 96% on room air. Blood pressure 126/73, heart rate 52, pulse ox 96% on room air. Physical examination: Gen: This is a 73-year-old male in no acute distress VS: reviewed, blood pressure 103/63, heart rate 50, pulse ox 97% on room air HEENT: Head is atraumatic, normocephalic. Pupils equal, round. Sclerae is anicteric. NECK: Supple. No JVD. LUNGS: Clear to auscultation. No wheezes or rhonchi. No intercostal retractions. HEART: Regular rate and rhythm. Systolic murmur. ABDOMEN: Soft No tenderness. EXTREMITIES: No pedal edema. No calf tenderness. NEUROLOGICAL: Patient is awake, alert and oriented x3. Assessment: Atypical chest pain, acute coronary syndrome ruled out with negative troponins History of coronary artery disease with prior stenting of the RCA Hypertension Dyslipidemia Valvular heart disease with moderate MR, moderate TR, mild AAS, mild AR, mild pulmonary hypertension Borderline dilated thoracic aorta Paroxysmal atrial fibrillation currently in a sinus rhythm Plan: Continue patient's home cardiac medications Patient is cleared for discharge from cardiology May follow-up in the office in 1 to 2 weeks. Nurse practitioner note has been reviewed, I agree with documented findings and plan of care. Patient was seen and examined. Objective - Vital Signs Vital signs: Vital Signs Temp 98.0 F 01/17/24 07:00 Pulse 52 L 01/17/24 07:00 Resp 16 01/17/24 07:00 BP 126/73 01/17/24 07:00 Pulse Ox 96 01/17/24 07:00 FiO2 Intake & Output 01/16/24 01/17/24 01/17/24 18:59 06:59 18:59 Weight 65.317 kg Other: # Voids 1 - Labs CBC & Chem 7: 01/16/24 05:32 01/16/24 05:32 Labs: Abnormal Lab Results - Last 24 Hours (Table) 01/16/24 Range/Units 16:27 POC Glucose (mg/dL) 151 H (70-110) mg/dL
== END 2024-01-17 11:37 | disposition home or self-care (01) ==
LOC: EC 05:23 → 6NMEDSUR 07:58
PROVIDERS: ADMIT Student in an Organized Health Care Education/Training Program; ATTEND Student in an Organized Health Care Education/Training Program
DX: R07.89 Other chest pain (principal); I10 Essential (primary) hypertension; I48.0 Paroxysmal atrial fibrillation; I25.10 Atherosclerotic heart disease of native coronary artery without angina pectoris; E78.5 Hyperlipidemia, unspecified; E11.9 Type 2 diabetes mellitus without complications; I08.3 Combined rheumatic disorders of mitral, aortic and tricuspid valves; I27.20 Pulmonary hypertension, unspecified; I77.810 Thoracic aortic ectasia; Z87.891 Personal history of nicotine dependence; Z95.5 Presence of coronary angioplasty implant and graft; Z79.01 Long term (current) use of anticoagulants; Z79.84 Long term (current) use of oral hypoglycemic drugs; Z79.899 Other long term (current) drug therapy; Z88.2 Allergy status to sulfonamides
CPT/HCPCS: 99285; 36415; 93005; 93306; 85379; 80061; 80053; 83735; 84484; 85025; 85610; 85730; 83036; 71046; G0378 ×2; J3475